=== PATIENT | female | born 1955 | race Caucasian/White ===

== ENCOUNTER 2024-06-12 14:55 | Inpatient (IN) | payer MEDICARE, SELFPAY ==
--- NOTE | ~2024-06-12 | XR_ITS ---
INTRAOPERATIVE FLUOROSCOPY: CLINICAL HISTORY: 68 years old Female; ORIF RIGHT ANKLE PROCEDURE COMMENTS: Limited intraoperative fluoroscopy of the right ankle was performed. CUMULATIVE DOSE: 2.9 mGy FLUOROSCOPY TIME: 61 seconds FINDINGS/IMPRESSION: Please refer to operative note for further details. Reviewed, dictated and finalized at location A. UCTION EXPERT
--- NOTE | ~2024-06-12 | XR_ITS ---
HISTORY: right ankle pain, fall COMPARISON: None TECHNIQUE: 3 views of the right ankle were performed FINDINGS: Hardware within the calcaneus and across the talocalcaneal joint space. Acute trimalleolar fracture is identified with medial more than lateral soft tissue swelling. IMPRESSION: Trimalleolar fracture within the right ankle, as detailed above. Reviewed, dictated and finalized at location A. ERY WORKER
--- OUTSIDE RECORDS SUMMARY | 2024-06-12 14:57 | XMS_ITS | Patient Health Summary ---
Author Organization [facility] Address [address] [place] [address] Care Team Providers Care Bacteriologist Pharmaceutical Name Role Phone Daniella Rodriguez MD Primary Care Provider [phone] Note from [facility],non-owned Affiliates and Associated Physician Practices is amultiple site organization consisting of ambulatory clinics and hospital sitesin [place], [place], [place] and [place]. This disclosure is being madepursuant to the Care Everywhere program and may not contain all information available regarding this patient. Last updated 18.[facility] Allergies * Aspirin(Unknown) * Penicillins(Unknown) Medications * Be aware that medications may not be up to date on this document. Alwaysverify current medications with the patient. * albuterol HFA (PROVENTIL;VENTOLIN;PROAIR) 108 (90 Base) MCG/ACT inhaler (Started 11/01/2020) Inhale 2 (two) puffs by mouth every 4 hours as needed for Shortness of Breath or Wheezing * acetaminophen (TYLENOL) 500 MG tablet Take 1,000 mg by mouth every 6 hours as needed for Fever or Pain Maximum allowable Acetaminophen amount = 4 Grams (4000 mg) / 24 hours. * multivitamin daily tablet Take 1 tablet by mouth daily with food * guaiFENesin-dextromethorphan (ROBITUSSIN DM) 100-10 MG/5ML syrup(Started 11/11/2020) Take 10 mL by mouth every 8 hours as needed for Cough * AeroChamber Plus (AEROCHAMBER)(Started 11/11/2020) Inhale by mouth as directed * predniSONE (DELTASONE) 10 MG tablet(Started 11/11/2020) Take 4 tablets daily for 4 days, take 3 tablets daily for 2 days, take 2 tablets daily for 2 days, then take 1 tablet daily for 2 days Active Problems Problem Noted Date Diagnosed Date Acute respiratory failure with hypoxia COVID-19 virus infection 11/08/2020 Cholecystitis 12/22/2018 Social History Tobacco Use Types Packs/Day Years Used Date Smoking Tobacco: Former Cigarettes 0.5 5.7 0 04/23/1968 - 12/22/1973 Smokeless Tobacco: Never Tobacco Cessation:Counseling Given: Yes Alcohol Use Standard Drinks/Week Comments Never 0 (1 standard drink = 0.6 oz pur e alcohol) AUDIT-C Answer Date Recorded Frequency of Alcohol Consumption Never 12/22/2018 Average Number of Drinks Not on file 019 Frequency of Binge Drinking Not on file 07/2018 Sex and Gender Information Value Date Recorded Sex Assigned at Not on file Gender Identity Not on file Sexual Orientation Not on file Last Filed Vital Signs Vital Sign Reading Time Taken Comments Blood Pressure 130/69 11/11/2020 8:53 AM CDT Pulse 80 11/11/2020 8:53 AM CDT Temperature 37.1 C (98.8 F) 11/11/2020 8:53 AM CDT Respiratory Rate 18 11/11/2020 8:07 AM CDT Oxygen Saturation 94% 11/11/2020 8:53 AM CDT Inhaled Oxygen Concentration - - Weight 76.5 kg (168 lb 10.4 oz) 11/09/2020 5:07 AM CDT Height 180.3 cm (5' 11 ) 11/08/2020 10: 08 PM CDT Body Mass Index 23.52 11/08/2020 10:08 PM CDT Procedures * CARDIAC RHYTHM STRIP ORDER(Performed 11/13/2020) * C-REACTIVE PROTEIN(Performed 11/10/2020) * FERRITIN(Performed 11/10/2020) * MAGNESIUM BLOOD(Performed 11/10/2020) * CBC W AUTO DIFFERENTIAL(Performed 11/10/2020) * BASIC METABOLIC PANEL (CALCIUM TOTAL)(Performed 11/10/2020) * SARS-COV-2 (COVID-19) ANTIBODY IGG(Performed 11/10/2020) * B-TYPE NATRIURETIC PEPTIDE(Performed 11/09/2020) * COMPREHENSIVE METABOLIC PANEL(Performed 11/09/2020) * C-REACTIVE PROTEIN(Performed 11/09/2020) * FERRITIN(Performed 11/09/2020) * CBC W AUTO DIFFERENTIAL(Performed 11/09/2020) * D-DIMER(Performed 11/08/2020) * C-REACTIVE PROTEIN(Performed 11/08/2020) * LDH BLOOD(Performed 11/08/2020) * FERRITIN(Performed 11/08/2020) * CULTURE BLOOD(Performed 11/08/2020) * CULTURE BLOOD(Performed 11/08/2020) * MAGNESIUM BLOOD(Performed 11/08/2020) * TROPONIN I(Performed 11/08/2020) * PROCALCITONIN LEVEL(Performed 11/08/2020) * LACTIC ACID BLOOD REFLEX TO REPEAT(Performed 11/08/2020) * COMPREHENSIVE METABOLIC PANEL(Performed 11/08/2020) * CBC W AUTO DIFFERENTIAL(Performed 11/08/2020) * XR CHEST 1VW PORTABLE(Performed 11/08/2020) Performed for COVID-19 virus infection * EKG 12-LEAD(Performed 11/08/2020) Performed for COVID-19 virus infection * XR CHEST 1VW PORTABLE(Performed 11/01/2020) Performed for Cough * SARS-COV-2 (COVID-19) RAPID(Performed 11/01/2020) * COMPREHENSIVE METABOLIC PANEL(Performed 11/01/2020) * CBC W AUTO DIFFERENTIAL(Performed 11/01/2020) * LACTIC ACID BLOOD REFLEX TO REPEAT(Performed 11/01/2020) * CULTURE BLOOD(Performed 11/01/2020) * CULTURE BLOOD(Performed 11/01/2020) * VAS RIGHT VENOUS DUPLEX LE(Performed 08/24/2019) Performed for Pain in right leg * XR KNEE RIGHT 3VW(Performed 08/24/2019) Performed for Right knee pain, unspecified chronicity * IMAGING/RADIOLOGY/XRAY RESULTS ORDER(Performed 01/12/2019) * CARDIAC RHYTHM STRIP ORDER(Performed 12/24/2018) * HEPATIC FUNCTION PANEL(Performed 12/23/2018) * CBC W AUTO DIFFERENTIAL(Performed 12/23/2018) * GROSS + MICRO EXAM (ILL)(Performed 12/23/2018) Performed for Cholecystitis * NH LAP,CHOLECYSTECTOMY/GRAPH(Performed 12/23/2018) * NM HEPATOBILIARY WO EF(Performed 12/22/2018) Performed for Cholecystitis * LIPASE BLOOD(Performed 12/22/2018) Performed for Cholecystitis * US ABDOMEN LIMITED(Performed 12/22/2018) Performed for Cholecystitis * MAGNESIUM BLOOD(Performed 12/22/2018) * LACTIC ACID BLOOD(Performed 12/22/2018) * CBC W/O DIFFERENTIAL(Performed 12/22/2018) * BASIC METABOLIC PANEL (CALCIUM TOTAL)(Performed 12/22/2018) * XR WRIST RIGHT 3VW OR MORE(Performed 11/19/2016) Performed for Contusion of right hand, initial encounter * XR HAND RIGHT 3VW OR MORE(Performed 11/19/2016) Performed for Contusion of right hand, initial encounter Results * CARDIAC RHYTHM STRIP ORDER (11/13/2020 7:48 AM CDT) Only the most recent of2 resultswithin the time period is included. Narrative 11/13/2020 7:48 AM CDT Ordered by an unspecified provider. Scanned Document CARDIAC SERVICES ORD ERABLES * SARS-COV-2 (COVID-19) ANTIBODY IGG (11/10/2020 7:19 AM CDT) CoV2 IGG Negative Negative 11/10/2020 11:01 AM CDT [facility] Blood BLOOD SPECIMEN / Unknown Lab Venipuncture / Unknown 11/10/2020 7:19 AM CDT 11/10/2020 7:46 AM CDT Narrative [facility] - 11/10/2020 11:01 AM CDT This serologic based test was developed by [employer] and its performance characteristics determined by [facility] multisite validation and [facility]. This test has not been fully reviewed by the FDA but is being allowed for use per the FDA's Emergency Use Authorization. Please note the following disclaimers: Negative results do not rule out SARS-CoV-2 infection, particulary in those who have been in contact with the virus. Follow up testing with a molecular diagnostic should be considered to rule out infection in these individuals. Results from antibody testing should not be used as the sole basis to diagnose or exclude SARS-CoV-2 infection or to inform infection status. False positive results may be due to past or present infection with [id number] coronavirus strains. Rigorous scientific studies have not been completed to determine if detectable IgG to SARS-CoV-2 confers protective immunity. Luke Hernandez MD LAB - CHEMISTRY [facility] Performing Organization Address [facility] Co de Phone Number [facility] [address] * (ABNORMAL) C-REACTIVE PROTEIN (11/10/2020 7:19 AM CDT) Only the most recent of3 resultswithin the time period is included. [facility] C-Reactive Protein 1.45(H) 0.00 - 0.50 mg/dL 11/10/2020 8:59 AM CDT [facility] Blood BLOOD SPECIMEN / Unknown Lab Venipuncture / Unknown 11/10/2020 7:19 AM CDT 11/10/2020 7:46 AM CDT Luke Hernandez MD LAB - CHEMISTRY [facility] Performing Organization Address [facility] de Phone Number [facility] [address] * (ABNORMAL) CBC W AUTO DIFFERENTIAL (11/10/2020 7:19 AM CDT) Only the most recent of5 resultswithin the time period is included. [facility] WBC 9.2 4.0 - 10.0 x10E9/L 11/10/2020 7:50 AM CDT [facility] RBC 4.45 3.93 - 5.22 x10E12/L 11/10/2020 7:50 AM CDT [facility] Hemoglobin 14.1 11.2 - 15.7 gm/dL 11/10/2020 7:50 AM CDT [facility] Hematocrit 41.7 34.1 - 44.9 % 11/10/2020 7:50 AM CDT [facility] MCV 93.7 78.0 - 100.0 fl 11/10/2020 7:50 AM CDT [facility] MCH 31.7 25.6 - 34.0 pg 11/10/2020 7:50 AM CDT [facility] MCHC 33.8 32.3 - 36.5 gm/dL 11/10/2020 7:50 AM CDT [facility] RDW 13.6 11.6 - 14.4 % 11/10/2020 7:50 AM CDT [facility] MPV 10.0 9.4 - 12.4 fl 11/10/2020 7:50 AM CDT [facility] Platelet Count 146(L) 163 - 369 x10E9/L 11/10/2020 7:50 AM CDT [facility] Neutrophils % 65.4 40.0 - 75.0 % 11/10/2020 7:50 AM CDT [facility] Lymphocytes % 27.6 19.3 - 53.1 % 11/10/2020 7:50 AM CDT [facility] Monocytes % 6.7 4.7 - 12.5 % 11/10/2020 7:50 AM CDT [facility] Eosinophils % 0.0(L) 0.7 - 7.0 % 11/10/2020 7:50 AM CDT [facility] Basophils % 0.1 0.1 - 1.2 % 11/10/2020 7:50 AM CDT [facility] Immature Granulocytes 0.2 0 - 0.5 % 11/10/2020 7:50 AM CDT [facility] Neutrophil Absolute 6.01 1.56 - 6.13 x10E9/L 11/10/2020 7:50 AM CDT [facility] Lymphocytes Absolute 2.54 1.18 - 3.74 x10E9/L 11/10/2020 7:50 AM CDT [facility] Monocytes Absolute 0.62 0.24 - 0.86 x10E9/L 11/10/2020 7:50 AM CDT [facility] Eosinophils Absolute 0.00(L) 0.04 - 0.54 x10E9/L 11/10/2020 7:50 AM CDT [facility] Basophils Absolute 0.01 0.01 - 0.08 x10E9/L 11/10/2020 7:50 AM CDT [facility] Immature Granulocytes Absolute 0.02 0 - 0.03 x10E9/L 11/10/2020 7:50 AM CDT [facility] nRBC Auto 0 <=0 /100 WBC 11/10/2020 7:50 AM CDT [facility] nRBC Absolute 0.00 <=0 x10E9/L 11/10/2020 7:50 AM CDT [facility] Blood BLOOD SPECIMEN / Unknown Lab Venipuncture / Unknown 11/10/2020 7:19 AM CDT 11/10/2020 7:45 AM CDT Luke Hernandez MD LAB - HEMATOLOGY ORD ERABLES [facility] [address] [place], [place] [address] [place] [address] * BASIC METABOLIC PANEL (CALCIUM TOTAL) (11/10/2020 7:19 AM CDT) Only the most recent of2 resultswithin the time period is included. Glucose 108 70 - 125 mg/dL 11/10/2020 8:59 AM CDT [facility] Sodium 140 136 - 145 mmol/L 11/10/2020 8:59 AM CDT [facility] Potassium 3.7 3.4 - 4.5 mmol/L 11/10/2020 8:59 AM CDT [facility] Chloride 107 98 - 107 mmol/L 11/10/2020 8:59 AM CDT [facility] CO2 23 22 - 29 mmol/L 11/10/2020 8:59 AM CDT [facility] Calcium 9.24 8.4 - 10.2 mg/dL 11/10/2020 8:59 AM CDT [facility] Anion Gap 14 10 - 20 mmol/L 11/10/2020 8:59 AM CDT [facility] BUN 16.6 9.8 - 20.1 mg/dL 11/10/2020 8:59 AM CDT [facility] Creatinine 0.81 0.57 - 1.11 mg/dL 11/10/2020 8:59 AM CDT [facility] eGFR by MDRD >60 >60 mL/min/1.7 3m2 11/10/2020 8:59 AM CDT [facility] eGFR by MDRD >60 >60 mL/min/1.7 3m2 11/10/2020 8:59 AM CDT [facility] Blood BLOOD SPECIMEN / Unknown Lab Venipuncture / Unknown 11/10/2020 7:19 AM CDT 11/10/2020 7:46 AM CDT Luke Hernandez MD LAB - CHEMISTRY [facility] Performing Organization Address City/[facility] Co de Phone Number [facility] [address] * MAGNESIUM BLOOD (11/10/2020 7:19 AM CDT) Only the most recent of3 resultswithin the time period is included. Magnesium 1.8 1.6 - 2.6 mg/dL 11/10/2020 8:34 AM CDT [facility] Blood BLOOD SPECIMEN / Unknown Lab Venipuncture / Unknown 11/10/2020 7:19 AM CDT 11/10/2020 7:46 AM CDT Luke Hernandez MD LAB - CHEMISTRY [facility]VAR[facility]O Performing Organization Address [facility] de Phone Number [facility] [address] * (ABNORMAL) FERRITIN (11/10/2020 7:19 AM CDT) Only the most recent of3 resultswithin the time period is included. Ferritin 1,027(H) 5 - 204 ng/mL 11/10/2020 8:59 AM CDT [facility] Blood BLOOD SPECIMEN / Unknown Lab Venipuncture / Unknown 11/10/2020 7:19 AM CDT 11/10/2020 7:46 AM CDT Luke Hernandez MD LAB - CHEMISTRY [facility]VAR[facility] Performing Organization Address [facility] Co de Phone Number [facility] [address] * B-TYPE NATRIURETIC PEPTIDE (11/09/2020 7:24 AM CDT) BNP 14 10 - 100 pg/mL 11/09/2020 8:28 AM CDT [facility] Blood BLOOD SPECIMEN / Unknown Lab Venipuncture / Unknown 11/09/2020 7:24 AM CDT 11/09/2020 7:57 AM CDT Luke Hernandez MD LAB - CHEMISTRY [facility] [place] Organization Address City/State/ZIP Co de Phone Number [facility] [address] [place] [address], [facility] * (ABNORMAL) COMPREHENSIVE METABOLIC PANEL (11/09/2020 7:24 AM CDT) Only the most recent of3 resultswithin the time period is included. [facility] Glucose 110 70 - 125 mg/dL 11/09/2020 8:35 AM CDT [facility] Sodium 141 136 - 145 mmol/L 11/09/2020 8:35 AM CDT [facility] Potassium 3.9 3.4 - 4.5 mmol/L 11/09/2020 8:35 AM CDT [facility] Chloride 107 98 - 107 mmol/L 11/09/2020 8:35 AM CDT [facility] CO2 24 22 - 29 mmol/L 11/09/2020 8:35 AM CDT [facility] Calcium 9.25 8.4 - 10.2 mg/dL 11/09/2020 8:35 AM CDT [facility] Anion Gap 14 10 - 20 mmol/L 11/09/2020 8:35 AM CDT [facility] BUN 16.7 9.8 - 20.1 mg/dL 11/09/2020 8:35 AM CDT [facility] Creatinine 0.82 0.57 - 1.11 mg/dL 11/09/2020 8:35 AM CDT [facility] eGFR by MDRD >60 >60 mL/min/1.7 3m2 11/09/2020 8:35 AM CDT [facility] eGFR by MDRD >60 >60 mL/min/1.7 3m2 11/09/2020 8:35 AM CDT [facility] Alkaline Phosphatase 71 40 - 150 U/L 11/09/2020 8:35 AM CDT [facility] ALT 21 5 - 55 U/L 11/09/2020 8:35 AM CDT [facility] AST 25 5 - 34 U/L 11/09/2020 8:35 AM CDT [facility] Protein Total 6.7 6.4 - 8.3 gm/dL 11/09/2020 8:35 AM CDT [facility] Albumin 3.1(L) 3.5 - 5.0 gm/dL 11/09/2020 8:35 AM CDT [facility] Globulin Total 3.6 2.6 - 4.0 gm/dL 11/09/2020 8:35 AM CDT [facility] Albumin/Globulin Ratio 0.9 0.9 - 1.6 11/09/2020 8:35 AM CDT [facility] Bilirubin Total 0.7 0.2 - 1.2 mg/dL 11/09/2020 8:35 AM CDT [facility] Blood BLOOD SPECIMEN / Unknown Lab Venipuncture / Unknown 11/09/2020 7:24 AM CDT 11/09/2020 7:57 AM CDT Luke Hernandez MD LAB - CHEMISTRY [facility] Organization Address City/State/[facility] Co de Phone Number [facility] [address] * (ABNORMAL) D-DIMER (11/08/2020 5:26 PM CDT) [facility] D-Dimer 0.54(H) <0.50 ug/mL FEU 11/08/2020 5:46 PM CDT [facility] Blood BLOOD SPECIMEN / Unknown Venipuncture / Unknown 11/08/2020 5:26 PM CDT 11/08/2020 5:31 PM CDT Narrative [facility] - 11/08/2020 5:46 PM CDT Intended for use in conjunction with a clinical pretest probability (PTP) assessment model to exclude pulmonary embolism (PE) and deep venous thrombosis (DVT) in outpatients suspected of PE or DVT when the D-dimer level is inferior to a predefined cut-off. A D-dimer test should be used in conjunction with a well validated clinical score to safely exclude VTE in outpatients with a low or moderate clinical score. Patients with distal DVT may have a normal D-dimer level. In DIC the D-dimer level increases, therefore D-dimer assays can help in the diagnosis of DIC and in DIC patient management. Theodore Lozano MD LAB - COAGULATION OR DERABLES Performing Organization Address [facility]/ZIP Co de Phone Number [facility] [address] * (ABNORMAL) LDH BLOOD (11/08/2020 5:26 PM CDT) LDH 236(H) 125 - 220 U/L 11/08/2020 6:14 PM CDT [facility] Blood BLOOD SPECIMEN / Unknown Venipuncture / Unknown 11/08/2020 5:26 PM CDT 11/08/2020 5:31 PM CDT Theodore Lozano MD LAB - CHEMISTRY [facility] ALVARADO Performing Organization Address [facility] Co de Phone Number [facility] [address] * CULTURE BLOOD (11/08/2020 5:24 PM CDT) Only the most recent of4 resultswithin the time period is included. Pathologist [facility] Culture No growth day 5 LAUREN 11/14/2020 9:56 AM CDT [facility] Blood PERIPHERAL BLOOD / Unknown Venipuncture / Unknown 11/08/2020 5:24 PM CDT 11/08/2020 5:31 PM CDT Theodore Lozano MD LAB - MICROBIOLOGY O RDERABLES Performing Organization Address [facility] Co de Phone Number [facility] [address] * LACTIC ACID BLOOD REFLEX TO REPEAT (11/08/2020 5:22 PM CDT) Only the most recent of2 resultswithin the time period is included. Lactic Acid 1.66 0.5 - 2 mmol/L 11/08/2020 5:51 PM CDT [facility] Blood BLOOD SPECIMEN / Unknown Venipuncture / Unknown 11/08/2020 5:22 PM CDT 11/08/2020 5:31 PM CDT Theodore Lozano MD LAB - CHEMISTRY [facility] ALVARADO [facility] [address] [place] [address], [facility] * PROCALCITONIN LEVEL (11/08/2020 5:22 PM CDT) Procalcitonin 0.05 <=0.10 ng/mL 11/08/2020 6:17 PM CDT [facility] Blood BLOOD SPECIMEN / Unknown Venipuncture / Unknown 11/08/2020 5:22 PM CDT 11/08/2020 5:32 PM CDT Narrative [facility] - 11/08/2020 6:17 PM CDT If baseline PCT is - >2.0 ng/mL: A PCT level above 2.0 ng/mL on the first day of ICU admission is associated with a high risk for progression to severe sepsis and/or septic shock. - <0.5 ng/mL: A PCT level below 0.5 ng/mL on the first day of ICU admission is associated with a low risk for progression to severe sepsis and/or septic shock. If the Procalcitonin measurement is performed shortly after systemic infection process has started (usually less than 6 hours), these values may still be low. As various non-infectious conditions are known to induce procalcitonin as well, Procalcitonin levels between 0.50 ng/mL and 2.00 ng/mL should be reviewed carefully to take into account the specific clinical background and condition(s) of the individual patient. The change in procalcitonin (PCT) concentration over time provides support in decision making on antibiotic discontinuation for suspected or confirmed septic patients and for suspected or confirmed lower respiratory tract infection (LRTI). Follow-up samples should be tested once every 1-2 days based upon physician discretion taking into account the patient's evolution and progress. Discontinuation of antibiotic therapy may be considered for suspected or confirmed septic patients if the current PCT is <= 0.5 ng/mL or <= 0.25 ng/mL for confirmed LRTI. If the PCT delta drop is > 80% in either condition, discontinuation of antibiotic therapy may be indicated. Duration of antibiotics should not be determined solely on PCT; established guidelines for the indication should be followed. Results should be interpreted in the context of a patient's clinical status and other laboratory tests. PCT peak: Highest observed PCT concentration PCT current: Most recent PCT concentration Calculate delta PCT using the following equation: Delta PCT = PCT Peak - PCT current X 100% PCT Peak The Change in Procalcitonin Calculator is available at [email or web address] If clinical picture has not improved and PCT remains high, reevaluate and consider treatment failure or other causes. Theodore Lozano MD LAB - CHEMISTRY [facility]VARADO Performing Organization Address [facility] Co de Phone Number [facility] [address] * TROPONIN I (11/08/2020 5:22 PM CDT) [facility] Troponin I 0.020 <0.032 ng/mL 11/08/2020 6:03 PM CDT [facility] Blood BLOOD SPECIMEN / Unknown Venipuncture / Unknown 11/08/2020 5:22 PM CDT 11/08/2020 5:32 PM CDT Narrative [facility] - 11/08/2020 6:03 PM CDT The universal definition of myocardial infarction (WY) being at least one value above the 99th percentile of the upper reference limit (0.028 ng/mL combined male/female), along with evidence of WY with at least one of the following: Ischemic symptoms, pathological Q waves on electrocardiogram (ECG), ischemic ECG changes or imaging evidence of new loss of viable myocardium or new regional wall motion abnormality. An elevated TNI value alone is not sufficient to make a the diagnosis of W[place], serial sampling is recommended to detect the temporal rise and fall of troponin levels characteristic of W[place]. Any condition resulting in myocardial cell damage can increase cardiac TNI levels. In addition to WY, these include but are not limited to congestive heart failure, arrhythmia, myocarditis and non-cardiac related causes such as pulmonary embolism, renal failure and sepsis. Theodore Lozano MD LAB - CHEMISTRY [facility] ALVARADO Performing Organization Address [facility] Co de Phone Number [facility] [address] * XR CHEST 1VW PORTABLE (11/08/2020 5:21 PM CDT) Only the most recent of2 resultswithin the time period is included. Anatomical Region Laterality Modality Chest Radiographic Silvia ging 11/08/2020 6:10 PM CDT Impressions 11/08/2020 6:11 PM CDT 1. No acute process in the chest. 2. Appearance is similar in comparison to prior chest x-ray of 11/01/2020. *Reading Radiologist: Miguel Mckinonn on 11/08/2020 at 6:11 PM Narrative 11/08/2020 6:11 PM CDT RADIOGRAPH OF THE CHEST CLINICAL HISTORY: COVID-19. TECHNIQUE: Frontal view of the chest. COMPARISON: Chest x-ray of 11/01/2020. FINDINGS: Normal sized heart. No consolidation. No effusion. Negative for pneumothorax. Negative for acute osseous abnormality, lytic or blastic lesion. Procedure Note Miguel Mckinnon MD - 11/08/2020 RADIOGRAPH OF THE CHEST CLINICAL HISTORY: COVID-19. TECHNIQUE: Frontal view of the chest. COMPARISON: Chest x-ray of 11/01/2020. FINDINGS: Normal sized heart. No consolidation. No effusion. Negative for pneumothorax. Negative for acute osseous abnormality, lytic or blastic lesion. IMPRESSION 1. No acute process in the chest. 2. Appearance is similar in comparison to prior chest x-ray of 11/01/2020. *Reading Radiologist: Miguel Mckinnon on 11/08/2020 at 6:11 PM Theodore Lozano MD DIAGNOSTIC IMAGING O RDERABLES * (ABNORMAL) EKG 12-LEAD (11/08/2020 5:08 PM CDT) Ventricular Rate 88 BPM [facility] Atrial Rate 88 BPM [facility] P-R Interval 146 ms [facility] QRS Duration ms 90 ms [facility] Q-T Interval ms 362 ms [facility] QTC Calculation (Bezet) 438 ms [facility] Calculated P [place] 21 degrees [facility] Calculated R [place] -22 degrees [facility] Calculated T [place] 117 degrees [facility] Interpretation EKG Normal sinus rhythm Left ventricular hypertrophy with repolarization abnormality Abnormal ECG No previous ECGs available Confirmed by MD P[facility] ([id number]) on 11/10/2020 1:51:59 PM [facility] 11/08/2020 5:08 PM CDT 11/10/2020 1:51 PM CDT Narrative Procedure Note Theodore Lozano MD - 11/08/2020 4:49 PM CDT ED Events Date/Time Event User Comments 11/08/20 1648 First Provider Evaluation IGNACIO KUMAR Karis Granda [id number] [facility] EM[facility]ENC[facility]PART[facility] History Chief Complaint Patient presents with Cough Pain Head Epidemic Concern 4:49 PM Karis Granda, a 65 year old female with a past medical historythat includes--Cholecystectomy--presents to the ER c/o headache,rhinorrhea, malaise, and cough onset 8 days ago. She was seen in the ED 7days ago and was positive for COVID-19 at that time. She was dischargedhome and says that her symptoms were mild initially. The pt says that shebegan to experience diarrhea 2 days ago and yesterday she began toexperience a fever, increased cough, and an increased headache. She has apulse oximeter at home and says that at one point her last PM her FhM1qtqktodlw to 88%. Today her SpO2 has been in the low 90's and she has beenexperiencing SOB and vomiting x1. The pt also says that she has painacross her lower chest when she breathes in or coughs. She denies loss oftaste or smell, current nausea, abdominal pain, or a sore throat. The pthad an SpO2 in the low 90's by EMS and was placed on 4 LPM O2. The pt nowhas an SpO2=97% and says that she feels better. She denies a history ofsmoking, asthma, or using inhalers. No other complaint voiced at thistime. PCP: Daniella Rodriguez MD Past Medical History: Diagnosis Date NEGATIVE PAST MEDICAL HISTORY - SEE PROBLEM LIST Past Surgical History: Procedure Laterality Date Cholecystectomy, Laparoscopic 12/23/2018 LAPAROSCOPIC CHOLECYSTECTOMY No family history on file. Social History Socioeconomic History Marital status: Spouse name: Not on file Number of children: Not on file Years of education: Not on file Highest education level: Not on file Occupational History Not on file Tobacco Use Smoking status: Former Smoker Packs/day: 0.50 Years: 5.00 Pack years: 2.50 Types: Cigarettes Start date: 04/23/1968 Quit date: 12/22/1973 Years since quittin.9 Smokeless tobacco: Never Used Substance and Sexual Activity Alcohol use: Never Drug use: Never Sexual activity: Not Currently Other Topics Concern Not on file Social History Narrative Not on file Social Determinants of Health Financial Resource Strain: Difficulty of Paying Living Expenses: Food Insecurity: Worried About Running Out of Food in the Last Year: Ran Out of Food in the Last Year: Transportation Needs: Lack of Transportation (Medical): Lack of Transportation (Non-Medical): Physical Activity: Days of Exercise per Week: Minutes of Exercise per Session: Stress: Feeling of Stress : Social Connections: Frequency of Communication with Friends and Family: Frequency of Social Gatherings with Friends and Family: Attends [employer] Services: Active Member of Clubs or Organizations: Attends Club or Organization Meetings: Marital Status: Intimate Partner Violence: Fear of Current or Ex-Partner: Emotionally Abused: Physically Abused: Sexually Abused: Review of Systems Review of Systems Constitutional: Positive for fever and malaise/fatigue. No loss of taste or smell. HENT: Negative for sore throat. Rhinorrhea. Eyes: Negative. Respiratory: Positive for cough and shortness of breath. Cardiovascular: Positive for chest pain (across lower chest withinspiration or coughing). Gastrointestinal: Positive for diarrhea and vomiting. Negative forabdominal pain and nausea. Genitourinary: Negative. Musculoskeletal: Negative. Skin: Negative for rash. Neurological: Positive for headaches. All other systems reviewed and are negative. Physical Exam BP 129/70 Pulse 88 Temp 98.2 F (36.8 C) Resp 18 SpO2 96% Vitals: 11/08/20 1642 BP: 129/70 Pulse: 88 Resp: 18 Temp: 98.2 F (36.8 C) SpO2: 96% Physical Exam Vitals and nursing note reviewed. Constitutional: Appearance: She is well-developed. HENT: Head: Atraumatic. Nose: Nose normal. Eyes: General: No scleral icterus. Conjunctiva/sclera: Conjunctivae normal. Pupils: Pupils are equal, round, and reactive to light. Neck: Vascular: No JVD. Cardiovascular: Rate and Rhythm: Normal rate and regular rhythm. Heart sounds: Normal heart sounds. Pulmonary: Effort: Pulmonary effort is normal. Comments: Mild bibasilar crackles. Chest: Chest wall: No tenderness. Abdominal: Palpations: Abdomen is soft. Tenderness: There is abdominal tenderness (mild) in the epigastricarea. There is no guarding or rebound. Musculoskeletal: General: No tenderness. Normal range of motion. Cervical back: Normal range of motion. Lymphadenopathy: Cervical: No cervical adenopathy. Skin: General: Skin is warm and dry. Neurological: Mental Status: She is alert and oriented to person, place, and time. Cranial Nerves: No cranial nerve deficit. Motor: No abnormal muscle tone. Medications Current Outpatient Medications Medication Sig Dispense Refill acetaminophen CR (TYLENOL ARTHRITIS PAIN) 650 MG tablet Take 1 tablet bymouth every 8 hours as needed for Pain 25 tablet 1 albuterol HFA (PROVENTIL;VENTOLIN;PROAIR) 108 (90 Base) MCG/ACT inhalerInhale 2 (two) puffs by mouth every 4 hours as needed for Shortness ofBreath or Wheezing 1 Inhaler 0 azithromycin (ZITHROMAX) 250 MG tablet Take two tablets now then onetablet everyday for four days 6 tablet 0 HYDROcodone-acetaminophen (NORCO) 5-325 MG tablet Take 1 tablet by mouthevery 12 hours as needed (Patient not taking: Reported on 01/03/2019) 4tablet 0 methylPREDNISolone (MEDROL DOSEPAK) 4 MG tablet Take by mouth asdirected 1 Each 0 ondansetron (ZOFRAN) 4 MG tablet Take 1 tablet by mouth every 6 hours asneeded for Nausea/Vomiting 10 tablet 0 Procedures EKG 12-LEAD Date/Time: 11/08/2020 5:08 PM Performed by: Theodore Lozano MD Authorized by: Theodore Lozano MD ECG interpreted by ED Physician in the absence of a bleacher pulp: yes Interpretation: Interpretation: abnormal Rate: ECG rate: 88 ECG rate assessment: normal Rhythm: Rhythm: sinus rhythm Ectopy: Ectopy: none QRS: QRS axis: Normal Other findings: Other findings: LVH Lab Interpretation Oxygen Saturation Interpretation The oxygen saturation level is: 96%. The patient was on 4 lpm for thesaturation measurement. Measurement frequency: Continuous. Oxygensaturation interpretation is Normal. Intervention(s) used: OxygenAdministration. Hospital Encounter on 11/08/20 CBC W AUTO DIFFERENTIAL Result Value Ref Range WBC 7.0 4.0 - 10.0 x10E9/L RBC 4.66 3.93 - 5.22 x10E12/L Hemoglobin 15.0 11.2 - 15.7 gm/dL Hematocrit 43.7 34.1 - 44.9 % MCV 93.8 78.0 - 100.0 fl MCH 32.2 25.6 - 34.0 pg MCHC 34.3 32.3 - 36.5 gm/dL RDW 13.6 11.6 - 14.4 % MPV 9.9 9.4 - 12.4 fl Platelet Count 128 (L) 163 - 369 x10E9/L Neutrophils % 69.5 40.0 - 75.0 % Lymphocytes % 23.9 19.3 - 53.1 % Monocytes % 6.4 4.7 - 12.5 % Eosinophils % 0.0 (L) 0.7 - 7.0 % Basophils % 0.1 0.1 - 1.2 % Immature Granulocytes 0.1 0 - 0.5 % Neutrophil Absolute 4.89 1.56 - 6.13 x10E9/L Lymphocytes Absolute 1.68 1.18 - 3.74 x10E9/L Monocytes Absolute 0.45 0.24 - 0.86 x10E9/L Eosinophils Absolute 0.00 (L) 0.04 - 0.54 x10E9/L Basophils Absolute 0.01 0.01 - 0.08 x10E9/L Immature Granulocytes Absolute 0.01 0 - 0.03 x10E9/L nRBC Auto 0 <=0 /100 WBC nRBC Absolute 0.00 <=0 x10E9/L LACTIC ACID BLOOD REFLEX TO REPEAT Result Value Ref Range Lactic Acid 1.66 0.5 - 2 mmol/L D-DIMER Result Value Ref Range D-Dimer 0.54 (H) <0.50 ug/mL FEU XR CHEST 1VW PORTABLE (Results Pending) Progress Notes 1649 The pt was evaluated for headache, rhinorrhea, malaise, and coughonset 8 days ago. She was seen in the ED 7 days ago and was positive forCOVID-19 at that time. She was discharged home and says that her symptomswere mild initially. The pt says that she began to experience diarrhea 2days ago and yesterday she began to experience a fever, increased cough,and an increased headache. She has a pulse oximeter at home and says thatat one point her last PM her SpO2 decreased to 88%. Today her SpO2 hasbeen in the low 90's and she has been experiencing SOB and vomiting x1.The pt also says that she has pain across her lower chest when shebreathes in or coughs. She denies loss of taste or smell, current nausea,abdominal pain, or a sore throat. The pt had an SpO2 in the low 90's byEMS and was placed on 4 LPM O2. The pt now has an SpO2=97% and says thatshe feels better. She denies a history of smoking, asthma, or usinginhalers. She was informed of the plan to perform labs, Chest X-ray, andan EKG. She will receive a 6 mg Dexamethasone injection. 1747 A call out was placed to the [facility] and Dr. Moy was assignedas hospitalist. [address] Moy (hospitalist). He was informed of the pt'shistory, physical, vitals, and results. He agrees to admit the pt to hisservice. The pt was reassessed and informed of the plan for admission. 1801 The pt has a potassium=3. She will receive a 40 mEq potassiumchloride ER tablet. This patient was cared for during a Federal and State declared state ofEmergency secondary to COVID-19. I have reviewed the patient's medical history, problem list, homemedications, and allergies. ED Course Clinical Impressions as of Nov 09 1803 COVID-19 virus infection Acute respiratory failure with hypoxia Hypokalemia Medical Decision Making I have reviewed the: Previous Chart, Nursing Notes, Vitals. I have interpreted the following results: Labs, X-Ray, OxygenSaturation. I have discussed the case with Hospitalist (Dr. Moy). Orders Placed This Encounter CULTURE BLOOD XR CHEST 1VW PORTABLE CBC W AUTO DIFFERENTIAL COMPREHENSIVE METABOLIC PANEL LACTIC ACID BLOOD REFLEX TO REPEAT PROCALCITONIN LEVEL TROPONIN I TROPONIN I FERRITIN LDH BLOOD C-REACTIVE PROTEIN D-DIMER O2 SAT PARAMETERS EKG 12-LEAD AND Linked Order Group 0.9% NaCl injection 3 mL 0.9% NaCl injection 1-10 mL dexAMETHasone (Decadron) injection 6 mg dexAMETHasone (Decadron) injection 6 mg Clinical Impression: Final diagnoses: COVID-19 virus infection Acute respiratory failure with hypoxia Pending: Labs and Imaging By signing my name below, I, Ignacio Kumar, attest that this documentationhas been prepared under the direction and in the presence of MD Rigo. Electronically signed: Hellen García. 11/08/2020. 5:55 PM I, Dr. Lozano, personally performed the services described in thisdocumentation. All medical record entries made by the scribe were at mydirection and in my presence. I have reviewed the chart and agree that therecord reflects my personal performance and is accurate and complete.Theodore Lozano MD. 11/08/2020. 5:55 PM Theodore Lozano MD ECG ORDERABLES [facility] * (ABNORMAL) SARS-COV-2 (COVID-19) RAPID (11/01/2020 4:41 AM CDT) COVID-19 PCR Detected(A A) Not detected, Invalid 11/01/2020 5:30 AM CDT [facility] Microbiology SPECIMEN FROM NASOPHARYNGEAL STRUCTURE / Unknown Collection / Unknown 11/01/2020 4:41 AM CDT 11/01/2020 4:41 AM CDT Narrative [facility] - 11/01/2020 5:30 AM CDT The Cepheid Xpert Xpress SARS-COV-2 has been authorized by the Food and Drug administration (FDA) under an Emergency Use Authorization (EUA). This test has been validated in accordance with the FDA's guidance document Policy for Diagnostic Testing in Laboratories Certified to perform High Complexity Testing under CLIA prior to Emergency Use Authorization for Coronavirus Disease-2019 during the Public Health Emergency issued on June 18, 2019. FDA independent review of this validation is pending. This test is only authorized for the duration of time the declaration that circumstances exist justifying the authorization of emergency use of in vitro diagnostic tests for detection of SARS-COV-2 virus and/or diagnosis of COVID-19 infection under 564(b)(1)of the Act, 21 U.S.C. 360bbb-3 (b) (1), unless the authorization is terminated or revoked sooner. David Dai MD LAB - MICROBIOLOGY ORDERABLES Performing Organization Address City/State/[facility] Co de Phone Number [facility] [address] [place], [place] [address] * VAS VENOUS DOPPLER LE UNILAT RIGHT (DVT STUDY) [id number] (08/24/2019 1:15 PM CDT) Anatomical Region Laterality Modality Lower Extremity Ultrasound 08/24/2019 1:18 PM CDT Impressions 08/24/2019 1:18 PM CDT No evidence of deep venous thrombosis within the veins mentioned above. Narrative 08/24/2019 1:18 PM CDT IMAGING STUDIES: VAS RIGHT VENOUS DUPLEX LE DATE: 08/24/2019 1:15 PM COMPARISON STUDIES: No previous available CLINICAL HISTORY: Pain in right leg. . FINDINGS: Real-time ultrasound examination of the right lower extremity deep venous system was performed by the equip maint eng using B-mode/grayscale, Doppler spectral analysis and color Doppler flow. Images demonstrate normal flow within the common femoral, femoral, popliteal and posterior tibial veins at the level of the calf. There is collapse with compression and normal augmentation. Procedure Note Rodger Argueta MD - 08/24/2019 IMAGING STUDIES: VAS RIGHT VENOUS DUPLEX LE DATE: 08/24/2019 1:15 PM COMPARISON STUDIES: No previous available CLINICAL HISTORY: Pain in right leg. . FINDINGS: Real-time ultrasound examination of the right lower extremity deep venous system was performed by the equip maint eng using B-mode/grayscale, Doppler spectral analysis and color Doppler flow. Images demonstrate normal flow within the common femoral, femoral, popliteal and posterior tibial veins at the level of the calf. There is collapse with compression and normal augmentation. IMPRESSION No evidence of deep venous thrombosis within the veins mentioned above. Marvin Mckeon PURCHASING [employer] [facility]ER[facility] * XR KNEE 3 VW RIGHT [id number] (08/24/2019 11:47 AM CDT) Anatomical Region Laterality Modality Lower Extremity Radiographic Silvia ging 08/24/2019 12:0 6 PM CDT Narrative 08/24/2019 12:10 PM CDT IMAGING STUDIES: XR KNEE RIGHT 3VW DATE: 08/24/2019 11:47 AM CLINICAL HISTORY: Pain in right knee. No given history of trauma COMPARISON: No comparisons. CONCLUSION: 1.There is no evidence of acute fracture, dislocation or osseous erosion. 2.Mild tibial spine spurring. Mild decrease in medial joint space without osteophyte. 3.Mild patellofemoral osteophyte. Patella is intact. Very small suprapatellar joint effusion. 4.No soft tissue swelling or radiopaque foreign bodies. Mild adjacent vascular calcifications. Procedure Note Chaitanya Velez MD - 08/24/2019 IMAGING STUDIES: XR KNEE RIGHT 3VW DATE: 08/24/2019 11:47 AM CLINICAL HISTORY: Pain in right knee. No given history of trauma COMPARISON: No comparisons. CONCLUSION: 1.There is no evidence of acute fracture, dislocation or osseous erosion. 2.Mild tibial spine spurring. Mild decrease in medial joint space without osteophyte. 3.Mild patellofemoral osteophyte. Patella is intact. Very small suprapatellar joint effusion. 4.No soft tissue swelling or radiopaque foreign bodies. Mild adjacent vascular calcifications. Marvin Mckeon PURCHASING EXP[employer] [facility] IMAG ING ORDERABLES * IMAGING/RADIOLOGY/XRAY RESULTS ORDER (01/12/2019 2:36 PM CDT) Anatomical Region Laterality Modality Other Narrative 01/12/2019 2:36 PM CDT Ordered by an unspecified provider. Scanned Document IMAGING * (ABNORMAL) HEPATIC FUNCTION PANEL (12/23/2018 9:17 AM CDT) Alkaline Phosphatase 79 40 - 150 U/L 12/23/2018 10:15 AM CDT [facility] ALT 18 5 - 55 U/L 12/23/2018 10:15 AM CDT [facility] AST 28 5 - 34 U/L 12/23/2018 10:15 AM CDT [facility] Protein Total 6.6 6.4 - 8.3 gm/dL 12/23/2018 10:15 AM CDT [facility] Albumin 3.3(L) 3.5 - 5.0 gm/dL 12/23/2018 10:15 AM CDT [facility] Bilirubin Total 0.6 0.2 - 1.2 mg/dL 12/23/2018 10:15 AM CDT [facility] Bilirubin Direct 0.28 0 - 0.5 mg/dL 12/23/2018 10:15 AM CDT [facility] Albumin/Globulin Ratio 1.0 0.9 - 1.6 12/23/2018 10:15 AM CDT [facility] Globulin Total 3.3 2.6 - 4.0 gm/dL 12/23/2018 10:15 AM CDT [facility] Bilirubin Indirect 0.3 0.2 - 0.9 mg/dL 12/23/2018 10:15 AM CDT [facility] Blood BLOOD SPECIMEN / Unknown Lab Venipuncture / Unknown 12/23/2018 9:17 AM CDT 12/23/2018 9:40 AM CDT Vanessa Jackman MD LAB - CHEMISTRY KHOA ALVARADO [facility] Organization Address City/State/ZIP Co de Phone Number [facility] [address] * GROSS + MICRO EXAM (ILL) (12/23/2018 8:09 AM CDT) Case Report Surgical Pathology Report Case: [id number] Authorizing Provider: Vanessa Jackman MD Collected: 12/23/2018 08:09 AM Ordering Location: [facility] Received: 12/23/2018 09:43 AM Pathologist: Luke Juan MD Specimen: Gallbladder 12/30/2018 1:32 PM CDT [facility] Final Diagnosis GALLBLADDER, CHOLECYSTECTOMY: - CHRONIC CHOLECYSTITIS AND CHOLELITHIASIS. TR/ns 12/30/2018 1:32 PM CDT [facility] Microscopic Description and Comment Microscopic examination is performed and substantiates the above diagnosis. 12/30/2018 1:32 PM CDT [facility] Clinical History Is not provided 12/30/2018 1:32 PM CDT [facility] Gross Description Received in formalin labeled, Karis Granda, and gallbladder, is an open, pink-bojorquez gallbladder measuring 8.5 x 3.9 x 1.3 cm with a wall thickness up to 0.4 cm. There are a few green to black stones in the container ranging from 0.1 - 0.4 cm in greatest dimension. The duct is patent. The mucosal surface is velvety and ranges from light to dark pink. There is no trabeculation identified. No masses or lesions are present. Felt Finishing Supervisor sections of this gallbladder are submitted in A1. LS/na 12/30/2018 1:32 PM CDT [facility] Disclaimer The performance characteristics of all immunohistochemical and indirect immunofluorescence stains (if any) cited in this report were determined by the Histopathology Laboratory of [facility]. Some of these tests were developed by our own laboratory and have not been cleared or approved by the US Food and Drug Administration. The FDA does not require this test to go through premarket FDA review. These tests are used for clinical purposes. They should not be regarded as investigational or for research. This laboratory is certified under the Clinical Laboratory Improvement Amendments (CLIA) as qualified to perform high complexity clinical laboratory testing. This case was interpreted by the [facility] Department of Pathology. When applicable, select reference laboratory testing is performed at the [facility], [address] [place] [address]. 12/30/2018 1:32 PM CDT AM LABORATORY Embedded Images 12/30/2018 1:32 PM CDT [facility] Pathology/Cytolo gy ENTIRE GALLBLADDER / Unknown 12/23/2018 8:09 AM CDT 12/23/2018 9:43 AM CDT Vanessa Jackman MD LAB - PATHOLOGY/CYTO LOGY ORDERABLES [facility] [address] [place] [address], [facility] * NM HEPATOBILIARY FUNCTION SCAN [id number] (12/22/2018 3:51 PM CDT) Anatomical Region Laterality Modality Abdomen Nuclear Medicine 12/22/2018 5:07 PM CDT Impressions 12/22/2018 5:24 PM CDT Very faint visualization of gallbladder which was not achieved until 4 hours post injection of radionuclide consistent with chronic cholecystitis with clinical correlation suggested. Hepatobiliary scan otherwise unremarkable. Narrative 12/22/2018 5:24 PM CDT RADIONUCLIDE HEPATOBILIARY SCAN: 12/22/2018 HISTORY: Cholecystitis. FINDINGS: Gamma camera imaging of right upper quadrant performed out to 4 hours post injection of 4.2 mCi of Tc 99m mebrofenin. Normal visualization of hepatic parenchymal, biliary ductal, and intestinal activity achieved. However, the gallbladder was not visualized on imaging up to 2 hours. At 4 hours, there is very faint visualization of gallbladder consistent with chronic cholecystitis. Procedure Note Cesario Edmondson MD - 12/22/2018 RADIONUCLIDE HEPATOBILIARY SCAN: 12/22/2018 HISTORY: Cholecystitis. FINDINGS: Gamma camera imaging of right upper quadrant performed out to 4 hours post injection of 4.2 mCi of Tc 99m mebrofenin. Normal visualization of hepatic parenchymal, biliary ductal, and intestinal activity achieved. However, the gallbladder was not visualized on imaging up to 2 hours. At 4 hours, there is very faint visualization of gallbladder consistent with chronic cholecystitis. IMPRESSION Very faint visualization of gallbladder which was not achieved until 4 hours post injection of radionuclide consistent with chronic cholecystitis with clinical correlation suggested. Hepatobiliary scan otherwise unremarkable. Dell Rivers MD [place] ORDERABLES * LIPASE BLOOD (12/22/2018 10:38 AM CDT) Lipase 31 8 - 78 U/L 12/22/2018 11:18 AM CDT [facility] Blood BLOOD SPECIMEN / Unknown Lab Venipuncture / Unknown 12/22/2018 10:38 AM CDT 12/22/2018 10:51 AM CDT Vanessa Jackman MD LAB - CHEMISTRY KHOA ALVARADO [facility] [address] [place] [address], [facility] * US ABDOMEN LIMITED [id number] (12/22/2018 10:19 AM CDT) Anatomical Region Laterality Modality Abdomen Ultrasound 12/22/2018 10:3 3 AM CDT Impressions 12/22/2018 10:35 AM CDT COMPARISON: No comparison. FINDINGS: Heterogeneous hepatic echotexture compatible with fatty liver. Mild intrahepatic ductal dilatation. Cholelithiasis. Pericholecystic fluid. Thickened gallbladder wall of 7.3 mm. Correlate clinically with possibility of acute cholecystitis. HIDA scan with CCK is recommended if warranted. Common bile duct measures 6.5 mm in AP diameter. Pancreas and right kidney are normal. Right kidney measures 13.5 x 6 x 6cm in size. Hepatopetal blood flow is noted in portal vein. IMPRESSION: ? Acute cholecystitis. Correlate clinically. Fatty liver. Narrative 12/22/2018 10:35 AM CDT PROCEDURE: US ABDOMEN LIMITED 12/22/2018 10:33 AM HISTORY: Cholecystitis, unspecified. FINDINGS AND Procedure Note Junior Cody MD - 12/22/2018 PROCEDURE: US ABDOMEN LIMITED 12/22/2018 10:33 AM HISTORY: Cholecystitis, unspecified. FINDINGS AND IMPRESSION COMPARISON: No comparison. FINDINGS: Heterogeneous hepatic echotexture compatible with fatty liver. Mild intrahepatic ductal dilatation. Cholelithiasis. Pericholecystic fluid. Thickened gallbladder wall of 7.3 mm. Correlate clinically with possibility of acute cholecystitis. HIDA scan with CCK is recommended if warranted. Common bile duct measures 6.5 mm in AP diameter. Pancreas and right kidney are normal. Right kidney measures 13.5 x 6 x 6cm in size. Hepatopetal blood flow is noted in portal vein. IMPRESSION: ? Acute cholecystitis. Correlate clinically. Fatty liver. Vanessa Jackman MD [place] ORDERABLES * CBC W/O DIFFERENTIAL (12/22/2018 5:28 AM CDT) WBC 10.0 4.0 - 10.0 x10E9/L 12/22/2018 5:36 AM CDT [facility] RBC 4.23 3.93 - 5.22 x10E12/L 12/22/2018 5:36 AM CDT [facility] Hemoglobin 13.3 11.2 - 15.7 gm/dL 12/22/2018 5:36 AM CDT [facility] Hematocrit 39.6 34.1 - 44.9 % 12/22/2018 5:36 AM CDT [facility] MCV 93.6 78.0 - 100.0 fl 12/22/2018 5:36 AM CDT [facility] MCH 31.4 25.6 - 34.0 pg 12/22/2018 5:36 AM CDT [facility] MCHC 33.6 32.3 - 36.5 gm/dL 12/22/2018 5:36 AM CDT [facility] RDW 13.2 11.6 - 14.4 % 12/22/2018 5:36 AM CDT [facility] MPV 9.6 9.4 - 12.4 fl 12/22/2018 5:36 AM CDT [facility] Platelet Count 191 163 - 369 x10E9/L 12/22/2018 5:36 AM CDT [facility] Blood BLOOD SPECIMEN / Unknown Lab Venipuncture / Unknown 12/22/2018 5:28 AM CDT 12/22/2018 5:33 AM CDT Dell Rivers MD LAB - HEMATOLOGY ORD ERABLES [facility] [address] * LACTIC ACID BLOOD (12/22/2018 5:28 AM CDT) [facility] Lactic Acid 1.13 0.5 - 2 mmol/L 12/22/2018 5:47 AM CDT [facility] Blood BLOOD SPECIMEN / Unknown Lab Venipuncture / Unknown 12/22/2018 5:28 AM CDT 12/22/2018 5:33 AM CDT Dell Rivers MD LAB - CHEMISTRY ORDE RABPAMELA [facility] [address] * XR HAND 3+ VW RIGHT [id number] (11/19/2016 2:32 PM CDT) Anatomical Region Laterality Modality Wrist / Hand Radiographic Silvia ging 11/19/2016 2:33 PM CDT Impressions 11/19/2016 3:07 PM CDT COMPARISON: None. Spiral fracture of the fourth metatarsal shaft. Soft tissue swelling. No dislocation or displacement. Report faxed to Dr. Esteban Cody's office at 2:45 p.m. on 11/19/2016. Call subsequently made to Estephanie Masterson to confirm receipt of report. Edited by Keke Burleson on 11/19/2016 2:58 PM Narrative 11/19/2016 3:07 PM CDT PROCEDURE: XR HAND 3+ VW RIGHT 11/19/2016 2:33 PM HISTORY: Contusion of right hand, initial encounter. FINDINGS AND Procedure Note Junior Cody MD - 11/19/2016 PROCEDURE: XR HAND 3+ VW RIGHT 11/19/2016 2:33 PM HISTORY: Contusion of right hand, initial encounter. FINDINGS AND IMPRESSION COMPARISON: None. Spiral fracture of the fourth metatarsal shaft. Soft tissue swelling. No dislocation or displacement. Report faxed to Dr. Esteban Cody's office at 2:45 p.m. on 11/19/2016. Call subsequently made to Estephanie Masterson to confirm receipt of report. Edited by Keke Burleson on 11/19/2016 2:58 PM Esteban Cody MD DIAGNOSTIC IMAGING O RDERABLES * XR WRIST 3+ VW RIGHT [id number] (11/19/2016 2:32 PM CDT) Anatomical Region Laterality Modality Wrist / Hand Radiographic Silvia ging 11/19/2016 2:35 PM CDT Impressions 11/19/2016 2:42 PM CDT COMPARISON: None. No acute fracture, dislocation, or destructive process involving the bones forming right wrist. Mild soft tissue swelling. Again identified is the fracture involving fourth metacarpal shaft. Edited by Keke Burleson on 11/19/2016 2:37 PM Narrative 11/19/2016 2:42 PM CDT PROCEDURE: XR WRIST 3+ VW RIGHT 11/19/2016 2:35 PM HISTORY: Contusion of right hand, initial encounter. FINDINGS AND Procedure Note Junior Cody MD - 11/19/2016 PROCEDURE: XR WRIST 3+ VW RIGHT 11/19/2016 2:35 PM HISTORY: Contusion of right hand, initial encounter. FINDINGS AND IMPRESSION COMPARISON: None. No acute fracture, dislocation, or destructive process involving the bones forming right wrist. Mild soft tissue swelling. Again identified is the fracture involving fourth metacarpal shaft. Edited by Keke Burleson on 11/19/2016 2:37 PM Esteban Cody MD DIAGNOSTIC IMAGING O [facility] Care Teams Bacteriologist Pharmaceutical Relationship Specialty Start Date End Date Daniella Rodriguez MD [address] [place] [address] [place] [phone] PCP - General Family Medicine 11/19/16
--- OUTSIDE RECORDS SUMMARY | 2024-06-12 14:58 | XMS_ITS | Clinical Summary ---
Author Organization [facility] Address [facility] [place] [address] Care Team Providers Care Field Operator Name Role Phone Felicitas Fatima NP Primary Care Provider [phone] Allergies No known active allergies Medications No known medications Encounters Date Type Department Care Team Description 05/28/2024 9:38 AM OIL HEATERMAN - 05/28/2024 11:58 AM OIL HEATERMAN Emergency [facility] Emergency Room [id number] [place] [address] Luis Carey MD URI Discharge Disposition: Home or Self Care (Routine Discharge) 05/28/2024 Travel from Last 3 Months Social History Tobacco Use Types Packs/Day Years Used Date Smoking Tobacco: Never Assessed Comments Unknown Sex and Gender Information Value Date Recorded Sex Assigned at Not on file Legal Sex Female 7:42 PM CDT Gender Identity Not on file Sexual Orientation Not on file Last Filed Vital Signs Vital Sign Reading Time Taken Comments Blood Pressure 148/83 05/28/2024 9:52 AM OIL HEATERMAN Pulse 77 05/28/2024 9:47 AM OIL HEATERMAN Temperature 37.1 C (98.7 F) 05/28/2024 9:47 AM OIL HEATERMAN Respiratory Rate 18 05/28/2024 9:47 AM OIL HEATERMAN Oxygen Saturation 98% 05/28/2024 9:47 AM OIL HEATERMAN Inhaled Oxygen Concentration - - Weight 81.6 kg (179 lb 14.3 oz) 05/28/2024 9:47 AM OIL HEATERMAN Height 167.6 cm (5' 6 ) 05/28/2024 9:47 AM OIL HEATERMAN Body Mass Index 29.04 05/28/2024 9:47 AM OIL HEATERMAN Plan of Treatment Health Maintenance Due Date Last Done Comments Colorectal Cancer Screening Colonoscopy (10 Years) 1955 Hepatitis C 09/17/1971 Mammogram Screening 1993 Zoster Vaccines (1 of 2) 09/17/2003 Annual Medicare Wellness Visit 2018 Pneumococcal Vaccine: 65+ Years (1 of 1 - PCV) 2018 COVID-19 Vaccine (1 - 2023-2 5 season) 2023 Influenza Adult (#1) 2024 DTaP, Tdap and Td Vaccines ( 3 - Td or Tdap) 06/26/2033 06/27/2023, 01/04/2015 Dexa Scan (General) Completed 01/15/2017, 01/15/2017 RSV Immunization or 60+ Years Completed 06/27/2023 Meningococcal B Vaccine Aged Out No l onger eligible based on patient's age to complete this topic Meningococcal Vaccine Aged Out No betty mary eligible based on patient's age to complete this topic RSV Immunizations Under 20 Months Aged Out No longer eligible b ased on patient's age to complete this topic Procedures Procedure Name Priority Date/Time Associated Diagnosis Comments ECG 12-LEAD STAT 05/28/2024 10:22 AM OIL HEATERMAN XR CHEST PORTABLE STAT 05/28/2024 10: 20 AM OIL HEATERMAN PRO-BRAIN NATRIURETIC PEPTIDE STAT 05/28/2024 10:18 AM OIL HEATERMAN TROPONIN, QUANT STAT 05/28/2024 10:18 AM OIL HEATERMAN COMPREHENSIVE METABOLIC PANEL STAT 05/28/2024 10:18 AM OIL HEATERMAN CBC W/DIFF AUTOMATED STAT 05/28/2024 10:18 AM OIL HEATERMAN RESP SYNCYTIAL VIRUS STAT 05/28/2024 10:15 AM OIL HEATERMAN INFLUENZA A & B STAT 05/28/2024 9:45 AM OIL HEATERMAN CORONAVIRUS (COVID 19) STAT 9:45 AM OIL HEATERMAN from Last 3 Months Results * ECG 12 lead (05/28/2024 10:22 AM OIL HEATERMAN) 05/28/2024 10:2 2 AM OIL HEATERMAN Narrative [facility] ([facility]) RAD - 05/29/2024 4:28 PM OIL HEATERMAN [facility] Test Date: 2024-05-28 Pat Name: [facility] Department: Room: EXAM 202 Gender: Female Core Microarchitect: : [id number] Requested By: LUIS CAREY Order Number: [id number] Reading MD: Douglas Brizuela Measurements Intervals [place] Rate: 62 P: 41 MI: 162 QRS: -20 QRSD: 105 T: 12 QT: 410 QTc: 417 Interpretive Statements SINUS RHYTHM VOLTAGE CRITERIA FOR LVH [MEETS CRITERIA IN ONE OF: R(aVL), S(V1), R(V5), R(V5/V6)+S(V1)] NONSPECIFIC T-WAVE ABNORMALITY No previous ECG available for comparison HEATERMAN Procedure Note Douglas Brizuela MD - 05/29/2024 [facility] Test Date: 2024-05-28 Pat Name: [facility] Department: Room: EXAM 202 Gender: Female Core Microarchitect: : [id number] Requested By: LUIS CAREY Order Number: [id number] Reading : Douglas Brizuela Measurements Intervals [place] Rate: 62 P: 41 MI: 162 QRS: -20 QRSD: 105 T: 12 QT: 410 QTc: 417 Interpretive Statements SINUS RHYTHM VOLTAGE CRITERIA FOR LVH [MEETS CRITERIA IN ONE OF: R(aVL), S(V1),R(V5), R(V5/V6)+S(V1)] NONSPECIFIC T-WAVE ABNORMALITY No previous ECG available for comparison HEATERMAN us Luis Carey MD ECG ORDERABLES Final Result [facility] ([facility]) RAD * XR CHEST PORTABLE (05/28/2024 10:20 AM OIL HEATERMAN) Anatomical Region Laterality Modality Chest Radiographic Silvia ging 05/28/2024 10:2 3 AM OIL HEATERMAN Impressions 05/28/2024 10:23 AM OIL HEATERMAN IMPRESSION: No acute findings Ordered By: LUIS CAREY Interpreted By: Gary Louis MD, 05/28/2024 10:23 AM Narrative 05/28/2024 10:23 AM OIL HEATERMAN [address] [place] [id number] SINGLE VIEW OF THE CHEST Clinical history: Cough Comparison: None A single view of the chest demonstrates the cardiac silhouette to be normal in size and appearance. The pulmonary vasculature appears normal. The Lungs are clear. No consolidations or effusions are seen. Procedure Note Gary Louis MD - 05/28/[address] [place] [id number] SINGLE VIEW OF THE CHEST Clinical history: Cough Comparison: None A single view of the chest demonstrates the cardiac silhouette to benormal in size and appearance. The pulmonary vasculature appears normal.The Lungs are clear. No consolidations or effusions are seen. IMPRESSION: No acute findings Ordered By: LUIS ACREY Interpreted By: Gary Louis MD, 05/28/2024 10:23 AM Luis Carey MD GENERAL IMAGING Final Result * (ABNORMAL) PRO-BRAIN NATRIURETIC PEPTIDE (05/28/2024 10:18 AM OIL HEATERMAN) PRO-B TYPE NATRIURETIC PEPTIDE 349(H) <125 PG/ML 05/28/2024 10:43 AM OIL HEATERMAN [facility] ([facility] Comment: CUT POINTS ESTABLISHED BY INTERNATIONAL [employer]LL[employer] ON NT PROBNP (ICON) STUDY (2006). AGE INDEPENDENT: <300 PG/ML HAS A 99% NEGATIVE PREDICTIVE VALUE FOR EXCLUDING ACUTE CHF <50 YEARS: >450 PG/ML IS CONSISTENT WITH ACUTE CHF 50-75 YEARS: >900 PG/ML IS CONSISTENT WITH ACUTE CHF >75 YEARS: >1800 PG/ML IS CONSISTENT WITH ACUTE CHF IN PATIENTS WITH RENAL INSUFFICIENCY (GFR <60), >1200 PG/ML YIELDS A DIAGNOSTIC SENSITIVITY AND SPECIFICITY OF 89% AND 72% FOR ACUTE CHF. 05/28/2024 10:1 8 AM OIL HEATERMAN us Luis Carey MD LABORATORY Final Result [facility] [address] [place] [address], * (ABNORMAL) COMPREHENSIVE METABOLIC PANEL (05/28/2024 10:18 AM OIL HEATERMAN) GLUCOSE 141(H) 70 - 99 MG/DL 05/28/2024 10:43 AM [facility] BUN 11 7 - 18 MG/DL 05/28/2024 10:43 AM [facility] CREATININE S/P/B 1.23(H) 0.55 - 1.02 MG/DL 05/28/2024 10:43 AM [facility] SODIUM S/P/B 140 136 - 145 MMOL/L 05/28/2024 10:43 AM [facility] POTASSIUM S/P/B 3.1(L) 3.5 - 5.1 MMOL/L 05/28/2024 10:43 AM [facility] CHLORIDE S/P/B 100 100 - 108 MMOL/L 05/28/2024 10:43 AM [facility] CO2 25.7 21 - 32 MMOL/L 05/28/2024 10:43 AM [facility] CALCIUM S/P/B 9.5 8.5 - 10.1 MG/DL 05/28/2024 10:43 AM [facility] BILIRUBIN TOTAL S/P/B 1.3(H) 0.2 - 1.2 MG/DL 05/28/2024 10:43 AM [facility] TOTAL PROTEIN S/P/B 7.6 6.4 - 8.2 G/DL 05/28/2024 10:43 AM [facility] ALBUMIN S/P/B 3.0(L) 3.4 - 5.0 G/DL 05/28/2024 10:43 AM [facility] AST 15 15 - 37 U/L 05/28/2024 10:43 AM [facility] ALT 18 14 - 55 U/L 05/28/2024 10:43 AM [facility] ALKALINE PHOSPHATASE S/P/B 75 50 - 136 U/L 05/28/2024 10:43 AM [facility] ANION GAP 14.3 5 - 15 MMOL/L 05/28/2024 10:43 AM [facility] BUN CREATININE RATIO 8.9 6 - 26 05/28/2024 10:43 AM [facility] A/G RATIO 0.7(L) 1.0 - 2.0 RATIO 05/28/2024 10:43 AM [facility] GFR ESTIMATE 47(L) >90 ML/MIN/1.7 3 M2 05/28/2024 10:43 AM [facility] Comment: NOTE: eGFR is not calculated for patients <18 years of age. This is an estimated GFR calculation using the new CKD EPI creatinine equation without race and so does not require a correction factor for race. This estimated GFR should not be used for calculating drug doses. 05/28/2024 10:1 8 AM OIL HEATERMAN us Luis Carey MD LABORATORY Final Result [facility] [address] [place] [address], * (ABNORMAL) CBC W/DIFF AUTOMATED (05/28/2024 10:18 AM OIL HEATERMAN) WBC 9.94 4.4 - 11.0 x10'3/uL 05/28/2024 10:25 AM [facility] RBC 4.33(L) 4.50 - 5.10 x10'6/uL 05/28/2024 10:25 AM [facility] HGB 13.1 12.3 - 15.3 G/DL 05/28/2024 10:25 AM [facility] HCT 39.1 35.9 - 44.6 % 05/28/2024 10:25 AM [facility] MCV 90.3 80.0 - 96.0 FL 05/28/2024 10:25 AM [facility] MCH 30.3 25.3 - 30.9 PG 05/28/2024 10:25 AM [facility] MCHC 33.5 31.0 - 34.1 G/DL 05/28/2024 10:25 AM [facility] RDW 13.6 12.4 - 15.1 % 05/28/2024 10:25 AM [facility] PLT 260 151 - 353 x10'3/uL 05/28/2024 10:25 AM [facility] MPV 9.7 9.6 - 12.0 FL 05/28/2024 10:25 AM [facility] RBC MORPHOLOGY NORMAL 05/28/2024 10:25 AM [facility] PLT MORPH. NORMAL 05/28/2024 10:25 AM [facility] WBC MORPHOLOGY NORMAL 05/28/2024 10:25 AM [facility] LYMPHOCYTES % 31.7 15.8 - 45.0 % 05/28/2024 10:25 AM [facility] NEUTROPHILS % 58.9 42.1 - 71.9 % 05/28/2024 10:25 AM [facility] MONOCYTES % 8.5 5.7 - 12.5 % 05/28/2024 10:25 AM [facility] EOSINOPHILS 0.3 0.0 - 5.6 % 05/28/2024 10:25 AM [facility] BASOPHILS 0.1 0.0 - 1.3 % 05/28/2024 10:25 AM [facility] ABS. NEUTROPHILS 5.86 1.40 - 6.00 x10'3/uL 05/28/2024 10:25 AM [facility] IMMATURE GRANS % 0.5 0.0 - 0.5 % 05/28/2024 10:25 AM [facility] ABS. LYMPHOCYTES 3.15 0.80 - 4.70 x10'3/uL 05/28/2024 10:25 AM [facility] 05/28/2024 10:1 8 AM [facility] us Luis Carey MD LABORATORY Final Result [facility] [address] [place] [address], * TROPONIN, QUANT (05/28/2024 10:18 AM [facility]) Pathologist [facility] TROPONIN I HIGH SENSITIVITY 11 0 - 50 ng/L 05/28/2024 10:51 AM [facility] Comment: HIGH DOSES OF BIOTIN, TROPONIN-SPECIFIC AUTOANTIBODIES, AND ANTIBODY THERAPY CONTAINING HAMA MAY INTERFERE WITH THIS TEST RESULT. CORRELATION TO CLINICAL HISTORY AND PRESENTATION RECOMMENDED. 05/28/2024 10:1 8 AM OIL HEATERMAN us Luis Carey MD LABORATORY Final Result Performing Organization Address City/[facility]/ZIP Co de Phone Number [facility] [address] [place] [address], [place] [phone] * RESP SYNCYTIAL VIRUS (05/28/2024 10:15 AM OIL HEATERMAN) SPECIMEN TYPE NASOPHARYNGEAL SWAB 05/28/2024 10:15 AM OIL HEATERMAN [facility] RAPID RSV NEGATIVE NEGATIVE 05/28/2024 10:41 AM OIL HEATERMAN [facility] NASOPHARYNGEAL SWAB / Unknown 05/28/2024 10:15 AM OIL HEATERMAN us Luis Carey MD MICROBIOLOGY - GENERAL ORDERABL ES Final Result Performing Organization Address [facility] Co de Phone Number [facility] [address] [place] [address], [place] [phone] * CORONAVIRUS (COVID-19) MOLECULAR (05/28/2024 9:45 AM OIL HEATERMAN) CORONAVIRUS SARS COV 2 RNA NEGATIVE NEGATIVE 05/28/2024 10:12 AM OIL HEATERMAN [facility] Comment: NEGATIVE RESULTS DO NOT RULE OUT COVID 19 AND SHOULD NOT BE USED THE SOLE BASIS FOR TREATMENT OR PATIENT MANAGEMENT DECISIONS, INCLUDING INFECTION CONTROL DECISIONS. NEGATIVE RESULTS SHOULD BE CONSIDERED IN THE CONTEXT OF A PATIENT'S RECENT EXPOSURES, HISTORY AND THE PRESENCE OF CLINICAL SIGNS AND SYMPTOMS CONSISTENT WITH COVID 19. THE ID NOW COVID-19 2.0 TEST HAS BEEN AUTHORIZED BY THE FDA UNDER EAU FOR USE BY AUTHORIZED LABORATORIES. PERFORMED BY NUCLEIC ACID AMPLIFICATION FOR MOLECULAR QUALITATIVE DETECTION OF SARS-COV-2. SPECIMEN TYPE NASAL 05/28/2024 9:55 AM OIL HEATERMAN [facility] NASOPHARYNGEAL SWAB / Unknown 05/28/2024 9:45 AM OIL HEATERMAN us Luis Carey MD MICROBIOLOGY - GENERAL ORDERABL ES Final Result Performing Organization Address City/[facility]/ZIP Co de Phone Number [facility] [address] [place] [address], [place] [phone] * INFLUENZA A & B (05/28/2024 9:45 AM OIL HEATERMAN) SPECIMEN TYPE NASOPHARYNGEAL SWAB 05/28/2024 10:00 AM OIL HEATERMAN [facility] INFLUENZA A NEGATIVE NEGATIVE 05/28/2024 10:14 AM OIL HEATERMAN [facility] INFLUENZA B NEGATIVE NEGATIVE 05/28/2024 10:14 AM OIL HEATERMAN [facility] NASOPHARYNGEAL SWAB / Unknown 05/28/2024 9:45 AM OIL HEATERMAN us Luis Carey MD MICROBIOLOGY - GENERAL ORDERABL ES Final Result Performing Organization Address City/[facility] Co de Phone Number [facility] [address] [place] [address], [place] [phone] from Last [address] [place] [address] [address] [place] [address] Care Teams Field Operator Relationship Specialty Start Date End Date Felicitas Fatima NP [address] [place] [address] PCP - General NURSE PRACTITIONER 05/28/24
--- OUTSIDE RECORDS SUMMARY | 2024-06-12 14:58 | XMS_ITS | Clinical Summary ---
Author Organization [facility] Address [address] [facility] [place] [address] Care Team Providers Care Automatic Machine Attendant Name Role Phone Daniella Rodriguez MD Primary Care Provider [phone] Source Comments [facility],non-owned Affiliates and Associated Physician Practices is amultiple site organization consisting of ambulatory clinics and hospital sitesin [place], [place], [place] and [place]. This disclosure is being madepursuant to the Care Everywhere program and may not contain all information available regarding this patient. Last updated 18.[facility] Creactives Allergies Active Allergy Reactions Criticality Noted Date Comments Aspirin Unknown 12/22/2018 Penicillins Unknown 12/22/2018 Medications * Be aware that medications may not be up to date on this document. Alwaysverify current medications with the patient. Medication Sig Dispensed Refills Start Date End Date Status albuterol HFA (PROVENTIL;VENTOLI N;PROAIR) 108 (90 Base) MCG/ACT inhaler Inhale 2 (two) puffs by mouth every 4 hours as needed for Shortness of Breath or Wheezing 1 Inhaler 11/01/2020 Active acetaminophen (TYLENOL) 500 MG tablet Take 1,000 mg by mouth every 6 hours as needed for Fever or Pain Maximum allowable Acetaminophen amount = 4 Grams (4000 mg) / 24 hours. Active multivitamin daily tablet Take 1 tablet by mouth daily with food Active guaiFENesin-dextro methorphan (ROBITUSSIN DM) 100-10 MG/5ML syrup Take 10 mL by mouth every 8 hours as needed for Cough 118 mL 11/11/2020 Active AeroChamber Plus (AEROCHAMBER) Inhale by mouth as directed 1 Each 11/11/2020 Active predniSONE (DELTASONE) 10 MG tablet Take 4 tablets daily for 4 days, take 3 tablets daily for 2 days, take 2 tablets daily for 2 days, then take 1 tablet daily for 2 days 28 tablet 11/11/2020 Active Active Problems Problem Noted Date Diagnosed Date [...] Mass Index 23.52 11/08/2020 10:08 PM CDT Plan of Treatment Health Maintenance Due Date Last Done Comments BONE DENSITY TESTING 1955 COLOGUARD (AGES 45-75) - COL ON CA SCREENING 1955 COLON MONITORING 1955 COLONOSCOPY - COLON CA SCREENING 1955 CT COLONOGRAPHY - COLON CA SCREENING 1955 Colorectal Cancer Screening 1955 FIT - COLON CA SCREENING 1955 FLEX SIG - COLON CA SCREENING 1955 LIPID TESTING 1955 MAMMOGRAM 1955 MEDICARE AWV 12 MONTHS 1955 HEPATITIS C SCREENING 09/12/1971 DTAP/TDAP/TD VACCINES (1 - Tdap) 1972 PNEUMOCOCCAL VACCINE 50+ (1 of 1 - PCV) 09/17/2003 ZOSTER VACCINE (1 of 2) 09/17/2003 COVID-19 VACCINE (1 - 2023-2 5 season) 2023 INFLUENZA VACCINE (#1) 2023 DEPRESSION SCREENING 04/20/2024 Respiratory Syncytial Virus (RSV) Vaccine Pt: or over 60 yrs (1 - 1-dose 75+ series) 2028 HEPATITIS B VACCINE Aged Out No longe r eligible based on patient's age to complete this topic HIB VACCINE Aged Out No longer eligi ble based on patient's age to complete this topic HPV VACCINE Aged Out No longer eligi ble based on patient's age to complete this topic MENINGOCOCCAL (Group B) VACCINE Aged Out No longer eligible based on patient's age to complete this topic MENINGOCOCCAL VACCINE Aged Out No betty mary eligible based on patient's age to complete this topic Advance Directives * Full Code (Latest Code Status on File) Date Activated Date Inactivated Comments 11/08/2020 6:18 PM 11/11/2020 3:29 PM * Full Code Date Activated Date Inactivated Comments 12/23/2018 10:45 AM 12/23/2018 10:06 PM * Full Code Date Activated Date Inactivated Comments 12/22/2018 4:28 AM 12/23/2018 10:45 AM Care Teams Automatic Machine Attendant Relationship Specialty Start Date End Date Daniella Rodriguez MD [address] [place] [address] [place] [id number] PCP - General Family Medicine 11/19/16
--- OUTSIDE RECORDS SUMMARY | 2024-06-12 14:58 | XMS_ITS | Referral Summary ---
Author Organization [facility] Address [address] [facility] [place] [address] Care Team Providers Care Creel Clerk Name Role Phone Daniella Rodriguez MD Primary Care Provider [phone] Source Comments [facility],non-owned Affiliates and Associated Physician Practices is amultiple site organization consisting of ambulatory clinics and hospital sitesin [place], [place], [place] and [place]. This disclosure is being madepursuant to the Care Everywhere program and may not contain all information available regarding this patient. Last updated 18.[facility] Allergies Active Allergy Reactions Criticality Noted Date [...] Mass Index 23.52 11/08/2020 10:08 PM CDT Functional Status Functional Status Response Date of Assess ment Is person deaf or have serious hearing difficult y? No 11/08/2020 Is person blind or have serious difficulty seein g? No 11/08/2020 Does person have serious dif ficulty walking/climbing stairs? No 11/08/2020 Does person have difficulty dressing/bathing? No 11/08/2020 Does person have difficulty doing errands alone? No 11/08/2020 Cognitive Status Response Date of Assessm ent Does person have difficulty concentrating/remembering/making decisions? No 11/08/2020 Plan of Treatment Not on file Advance Directives * Full Code (Latest Code Status on File) Date Activated Date Inactivated Comments 11/08/2020 6:18 PM 11/11/2020 3:29 PM * Full Code Date Activated Date Inactivated Comments 12/23/2018 10:45 AM 12/23/2018 10:06 PM * Full Code Date Activated Date Inactivated Comments 12/22/2018 4:28 AM 12/23/2018 10:45 AM Care Teams Creel Clerk Relationship Specialty Start Date End Date Daniella Rodriguez MD [address] [place] [address] [place] [address] PCP - General Family Medicine 11/19/16
--- OUTSIDE RECORDS SUMMARY | 2024-06-12 14:58 | XMS_ITS | Continuity of Care Document ---
Author Organization [facility] Address [address] [place] [address] [address] [place] [address] Phone Care Team Providers Care Community Sports Coordinator Name Role Phone Jillian Jack Unavailable Unavailable Advance Directives Directive Yes / No Effective Date File Name No Information Encounters Encounter Description Practice Location Reason(s) For Visit Diagnoses Date Provider Providers Copied on Encounter [facility], [address], [place], [place], [id number], [place] tel:[phone] [facility] No Information Leon-2 2-[address] Marcie Walsh. [address] , [address], [place], [address], [place]. tel:[phone] Family History Family Member Type Diagnosis Age At Onset No Information Payers Payer name Insurance type Covered republican ID Authoriza tion(s) No Information Social History Type Description Quantity Date Captured Comments Sex Female Smoking Status No Information Chief Complaint And Reason For Visit No Information Reason For Referral Reason For Referral No Information History Of Present Illness Encounter Date Complaint History Of Prese nt Illness No Information Functional Status Date Functional Assessmen t No Information Instructions Date Instruction Additional Infor mation No Information Assessments Type Assessment Date No Information Patient Care Teams Name Effective Dates (start - stop) Status Members No Information
[2024-06-12 15:00] VITALS: BP 177/96; PULSE 83; RESP 15; TEMP 36.6; O2SAT 100
--- NOTE | 2024-06-12 16:44 | ED_ITS ---
HPI - Extremity Injury (Lower) General Chief Complaint: Extremity Injury, Lower <Natacha Andrews PA-C - Last Filed: 06/13/24 01:28> Stated Complaint: R ankle pain s/p fall <Natacha Andrews PA-C - Last Filed: 06/13/24 01:28> Time Seen by Provider: 06/12/24 16:44 <Natacha Andrews PA-C - Last Filed: 06/13/24 01:28> Focused HPI: This is a 68 year old female that presents to the ER for right ankle pain. Reports she was getting out of the car and slipped and fell. Reports twisting her ankle and feeling a pop. Reports pain and swelling. She did not hit her head or lose consciousness. GENERAL: Well-appearing, well-nourished, and in no acute distress. HEAD: Normocephalic, atraumatic. CHEST: Clear to auscultation. ?No respiratory distress. HEART: Regular rate and rhythm.? NEURO: ?Alert and oriented x3. Patient screened in triage and initial orders placed.? ?Additional care and disposition to be based upon?diagnostic testing and treatment. <Natacha Andrews PA-C - Last Filed: 06/13/24 01:28> History of Present Illness HPI Narrative: Agree with the HPI as described above. Patient has history of hypertension otherwise was in her normal state of health. Has a previous ankle surgery on the right side with calcaneal fixation after an arch collapse [address] Burt. <Natacha Andrews PA-C - Last Filed: 06/13/24 01:28> Agree with the HPI as described above. Patient has history of hypertension otherwise was in her normal state of health. Has a previous ankle surgery on the right side with calcaneal fixation after an arch collapse [address] Hawkins. <Ronald Carrillo MD - Last Filed: 06/12/24 20:46> Related Data Home Medications: Home Medications ?Medication ?Instructions ?Recorded ?Confirmed ?Last Taken ?Type No Home Medications 06/12/24 06/12/24 Unknown History <Natacha Andrews PA-C - Last Filed: 06/13/24 01:28> Allergies/Adverse Reactions: Allergies Allergy/AdvReac Type Severity Reaction Status Date / Time Penicillins Allergy Unknown Rash Verified 06/12/24 18:35 aspirin AdvReac Severe NOSE BLEEDS Verified 06/12/24 18:35 hydromorphone (From Dilaudid) AdvReac Intermediate Hallucinati Verified 06/12/24 18:35 ng <Natacha Andrews PA-C - Last Filed: 06/13/24 01:28> Review of Systems 2 Review of Systems: As reviewed above in HPI <Ronald Carrillo MD - Last Filed: 06/12/24 20:46> PMFSH Family History Family History: Family History Other Cerebrovascular accident <Natacha Andrews PA-C - Last Filed: 06/13/24 01:28> Social History Social History: Social History Smoking status: Never smoker Alcohol intake: never Substance use: never Do You Feel Safe in your Home?: No Lack of Transportation: No Lack of Food: Never True Current Housing: I Have Housing Concerned About Future Housing: No Difficulty Paying Gas/Electric Bills: No Difficulty Paying for Meds: No Currently Unemployed: No Education: High School Diploma/GED Difficulty w/ Childcare or Family Care: No Spiritual care concerns: No <Natacha Andrews PA-C - Last Filed: 06/13/24 01:28> Exam 2 Narrative: GENERAL: [Well-appearing, well-nourished, and in no acute distress.] HEAD: [Normocephalic, atraumatic.] EYES: [PERRLA and EOMI.] ENT: Nares clear, no rhinorrhea or epistaxis. Mucous membranes moist. NECK: Supple. CHEST: [Clear to auscultation. No respiratory distress.] HEART: [Regular rate and rhythm]. No murmur heard. [Normal peripheral pulses.] ABDOMEN: [Soft, nondistended], [nontender], [No rigidity or guarding] EXTREMITIES: Swollen tender right ankle, tenderness to palpation along the lateral malleolus. Some minor overlying ecchymoses but no significant deformity. There is tenderness to palpation but no tense compartments. She is able to plantar and dorsiflex at the ankle albeit with some pain. Able to wiggle the toes. 2+ dorsalis pulse. SKIN: Warm, dry, no rash. NEURO: [No focal deficits]. Alert and oriented [x3.] PSYCH: [Normal mood and affect.] <Ronald Carrillo MD - Last Filed: 06/12/24 20:46> Course Vital Signs Vital signs: Vital Signs Temperature 97.9 F 06/12/24 15:00 Pulse Rate 83 06/12/24 15:00 Respiratory Rate 15 06/12/24 15:00 Blood Pressure 177/96 H 06/12/24 15:00 Pulse Oximetry 100 06/12/24 15:00 Temperature 97.5 F L 06/12/24 22:15 Pulse Rate 85 06/12/24 22:15 Respiratory Rate 18 06/12/24 22:15 Blood Pressure 152/98 H 06/12/24 22:15 Pulse Oximetry 97 06/12/24 22:15 Oxygen Delivery Room Air 06/12/24 22:01 <Natacha Andrews PA-C - Last Filed: 06/13/24 01:28> Vital Signs Temperature 97.9 F 06/12/24 15:00 Pulse Rate 83 06/12/24 15:00 Respiratory Rate 15 06/12/24 15:00 Blood Pressure 177/96 H 06/12/24 15:00 Pulse Oximetry 100 06/12/24 15:00 Temperature 97.5 F L 06/12/24 22:15 Pulse Rate 85 06/12/24 22:15 Respiratory Rate 18 06/12/24 22:15 Blood Pressure 152/98 H 06/12/24 22:15 Pulse Oximetry 97 06/12/24 22:15 Oxygen Delivery Room Air 06/12/24 22:01 <Ronald Carrillo MD - Last Filed: 06/12/24 20:46> Procedures Orthopedic Splinting/Casting Injury #1: Splinting/Casting Date: 06/12/24 <Ronald Carrillo MD - Last Filed: 06/12/24 20:46> Splinting/Casting Time: 20:46 <Ronald Carrillo MD - Last Filed: 06/12/24 20:46> Side: right <Ronald Carrillo MD - Last Filed: 06/12/24 20:46> Lower Extremity Injury Location: ankle <Ronald Carrillo MD - Last Filed: 06/12/24 20:46> Splint: customized in ED (Posterior short-leg fiberglass splint with stirrup support.) <Ronald Carrillo MD - Last Filed: 06/12/24 20:46> Pre-Procedure Neuro Vascular Exam: normal <Ronald Carrillo MD - Last Filed: 06/12/24 20:46> Post-Procedure Neuro Vascular Exam: normal <Ronald Carrillo MD - Last Filed: 06/12/24 20:46> MDM - Extremity Injury (Lower) MDM Narrative Medical decision making narrative: 68-year-old female with a past medical history including hypertension and 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 She presents today after rolling her right ankle while slipping on ice outside. Not strike her head or lose consciousness. Denies any pain aside from the ankle. She has some swelling and tenderness around the right ankle with concern for potential fracture of either the tibia or fibula. Suspicion for trimalleolar fracture also likely given her degree of swelling. She has 2+ dorsalis pedis pulses and warm extremities with good range of motion of the toes. Plantar and dorsiflexion of the ankle is limited secondary to pain and likely fracture. X- rays were obtained as well as preop laboratory studies including CBC, CMP, coags and an EKG. Vital signs are stable with some mild hypertension but no other derangements. Patient is comfortable. She is given morphine for analgesia. X-ray shows a trimalleolar fracture. I discussed the case with the orthopedic surgeon on-call Dr. Wagner who agreed for operative intervention likely in the morning. Patient is placed into a posterior short-leg splint with stirrup support, neuro vasculature was success before and after with good made perfusion to the foot. Patient was made NPO at midnight, pain control regimen was placed and I spoke to the hospitalist who accepted the patient to admit to the hospital at this time. Patient was comfortable the plan of care and admitted to a medical-surgical bed. As needed pain medications, Zofran and fluids were ordered. <Ronald Carrillo MD - Last Filed: 06/12/24 20:46> Medical Records Attestation: I reviewed the patient's medical records. <Ronald Carrillo MD - Last Filed: 06/12/24 20:46> Lab Data Attestation: I reviewed the patient's lab results. <Ronald Carrillo MD - Last Filed: 06/12/24 20:46> Result diagrams: 06/12/24 19:38 06/12/24 19:38 <Natacha Andrews PA-C - Last Filed: 06/13/24 01:28> Labs: Lab Results 06/12/24 Range/Units 19:38 WBC 11.1 H (4.5-10.0) K/mm3 RBC 4.89 (4.2-5.4) M/mm3 Hgb 14.7 (12.0-15.0) g/dL Hct 44.4 (37.0-47.0) % MCV 90.8 (80-100) fl MCH 30.1 (26-34) pg MCHC 33.1 (32-36) g/dl RDW 14.1 (11.5-14.5) % Plt Count 274 (150-375) k/mm3 MPV 9.2 (7.4-10.4) fl Immature Gran % (Auto) 0.3 (0-0.5) % Neut % (Auto) 65.3 (45.5-73.1) % Lymph % (Auto) 28.3 (18.3-44.2) % [place] % (Auto) 5.0 (2.6-8.5) % Eos % (Auto) 0.6 (0-4.4) % Baso % (Auto) 0.5 (0.2-1.2) % Lymph # (Auto) 3.13 (0.9-3.2) K/mm3 [place] # (Auto) 0.6 (0.1-0.6) K/mm3 Eos # (Auto) 0.1 (0-0.3) K/mm3 Baso # (Auto) 0.1 (0.0-0.1) K/mm3 Abs Immat Gran (auto) 0.03 (0.00-0.031) K/mm3 Absolute Neuts (auto) 7.2 H (1.3-6.7) K/mm3 Absolute Nucleated RBC 0.000 (0.0-0.012) K/mm3 Nucleated RBC % 0.0 (0.0-0.2) % PT 13.7 (11.1-14.7) Seconds INR 1.0 APTT 25.3 (22.3-36.8) Seconds Sodium 142 (137-145) mmol/L Potassium 3.9 (3.4-5.0) mmol/L Chloride 103 (98-107) mmol/L Carbon Dioxide 29 (22-30) mmol/L Anion Gap 10 (4-12) mmol/L BUN 16 (7-17) mg/dL Creatinine 0.87 (0.7-1.0) mg/dL Estim Creat Clear Calc 61 ml/min Estimated GFR > 60 (59 - ) Glucose 105 (65-110) mg/dL Calcium 10.3 H (8.4-10.2) mg/dL Total Bilirubin 0.9 (0.2-1.3) mg/dL AST 23 (14-36) U/L ALT 17 (6-35) U/L Alkaline Phosphatase 106 (38-126) U/L Total Protein 8.0 (6.3-8.2) g/dL Albumin 4.3 (3.5-5.1) g/dL Blood Type O Positive Antibody Screen Negative <Natacha Andrews PA-C - Last Filed: 06/13/24 01:28> Lab Results 06/12/24 Range/Units 19:38 WBC 11.1 H (4.5-10.0) K/mm3 RBC 4.89 (4.2-5.4) M/mm3 Hgb 14.7 (12.0-15.0) g/dL Hct 44.4 (37.0-47.0) % MCV 90.8 (80-100) fl MCH 30.1 (26-34) pg MCHC 33.1 (32-36) g/dl RDW 14.1 (11.5-14.5) % Plt Count 274 (150-375) k/mm3 MPV 9.2 (7.4-10.4) fl Immature Gran % (Auto) 0.3 (0-0.5) % Neut % (Auto) 65.3 (45.5-73.1) % Lymph % (Auto) 28.3 (18.3-44.2) % [place] % (Auto) 5.0 (2.6-8.5) % Eos % (Auto) 0.6 (0-4.4) % Baso % (Auto) 0.5 (0.2-1.2) % Lymph # (Auto) 3.13 (0.9-3.2) K/mm3 [place] # (Auto) 0.6 (0.1-0.6) K/mm3 Eos # (Auto) 0.1 (0-0.3) K/mm3 Baso # (Auto) 0.1 (0.0-0.1) K/mm3 Abs Immat Gran (auto) 0.03 (0.00-0.031) K/mm3 Absolute Neuts (auto) 7.2 H (1.3-6.7) K/mm3 Absolute Nucleated RBC 0.000 (0.0-0.012) K/mm3 Nucleated RBC % 0.0 (0.0-0.2) % PT 13.7 (11.1-14.7) Seconds INR 1.0 APTT 25.3 (22.3-36.8) Seconds Sodium 142 (137-145) mmol/L Potassium 3.9 (3.4-5.0) mmol/L Chloride 103 (98-107) mmol/L Carbon Dioxide 29 (22-30) mmol/L Anion Gap 10 (4-12) mmol/L BUN 16 (7-17) mg/dL Creatinine 0.87 (0.7-1.0) mg/dL Estim Creat Clear Calc 61 ml/min Estimated GFR > 60 (59 - ) Glucose 105 (65-110) mg/dL Calcium 10.3 H (8.4-10.2) mg/dL Total Bilirubin 0.9 (0.2-1.3) mg/dL AST 23 (14-36) U/L ALT 17 (6-35) U/L Alkaline Phosphatase 106 (38-126) U/L Total Protein 8.0 (6.3-8.2) g/dL Albumin 4.3 (3.5-5.1) g/dL Blood Type O Positive Antibody Screen Negative <Ronald Carrillo MD - Last Filed: 06/12/24 20:46> Imaging Data Attestation: I personally reviewed and interpreted this imaging study as follows: < Ronald Carrillo MD - Last Filed: 06/12/24 20:46> My impression: Impressions Ankle X-Ray 06/12/24 17:02 IMPRESSION: Trimalleolar fracture within the right ankle, as detailed above. <Ronald Carrillo MD - Last Filed: 06/12/24 20:46> Critical Care Time Critical Care Time Critical Care Time: No <Natacha Andrews PA-C - Last Filed: 06/13/24 01:28> Discharge Plan Discharge Clinical Impression: Ground-level fall Closed trimalleolar fracture of ankle Qualifiers: Encounter type: initial encounter Laterality: right Qualified Code(s): S82.851A - Displaced trimalleolar fracture of right lower leg, initial encounter for closed fracture Hypertension Qualifiers: Hypertension type: unspecified Qualified Code(s): I10 - Essential (primary) hypertension <Natacha Andrews PA-C - Last Filed: 06/13/24 01:28> Patient Disposition: Still a Patient <Natacha Andrews PA-C - Last Filed: 06/13/24 01:28> Condition: Stable <Natacha Andrews PA-C - Last Filed: 06/13/24 01:28> Time of Disposition: 20:45 <Natacha Andrews PA-C - Last Filed: 06/13/24 01:28> 20:45 <Ronald Carrillo MD - Last Filed: 06/12/24 20:46>
--- NOTE | 2024-06-12 19:10 | ECG_ITS ---
Test Date: 2024-06-12 20:03:27 Measurements Intervals [place] Rate: 81 P: 21 OR: 163 QRS: -21 QRSD: 87 T: 33 QT: 379 QTc: 441 Interpretive Statements SINUS RHYTHM LEFT VENTRICULAR HYPERTROPHY AND ST-T CHANGE POOR R WAVE PROGRESSION MINIMAL Q WAVES- HIGH LATERAL LEADS BASELINE ARTIFACT- I, II, III, AVR, AVL, AVF BORDERLINE ECG No previous ECG available for comparison Electronically Signed On 06-13-2024 06:41:37 [employer] RAW STOCK by Hang Casillas D.O.
--- OUTSIDE RECORDS SUMMARY | 2024-06-12 19:24 | XMS_ITS | Clinical Summary ---
Author Organization [facility] Address [facility] [place] [address] Care Team Providers [facility] [place] Former Machine Name Role Phone Felicitas Fatima NP Primary Care Provider [phone] Allergies No known active allergies Medications No known medications Encounters Date Type Department Care Team Description 05/28/2024 9:38 AM CAN FILLER - 05/28/2024 11:58 AM CAN FILLER Emergency [facility] Emergency Room [id number] [place] [id number] Luis Carey MD URI Discharge Disposition: Home [...] Comments Blood Pressure 148/83 05/28/2024 9:52 AM CAN FILLER Pulse 77 05/28/2024 9:47 AM CAN FILLER Temperature 37.1 C (98.7 F) 05/28/2024 9:47 AM CAN FILLER Respiratory Rate 18 05/28/2024 9:47 AM CAN FILLER Oxygen Saturation 98% 05/28/2024 9:47 AM CAN FILLER Inhaled Oxygen Concentration - - Weight 81.6 kg (179 lb 14.3 oz) 05/28/2024 9:47 AM CAN FILLER Height 167.6 cm (5' 6 ) 05/28/2024 9:47 AM CAN FILLER Body Mass Index 29.04 05/28/2024 9:47 AM CAN FILLER Plan of Treatment Health Maintenance Due Date [...] Comments ECG 12-LEAD STAT 05/28/2024 10:22 AM CAN FILLER XR CHEST PORTABLE STAT 05/28/2024 10: 20 AM CAN FILLER PRO-BRAIN NATRIURETIC PEPTIDE STAT 05/28/2024 10:18 AM CAN FILLER TROPONIN, QUANT STAT 05/28/2024 10:18 AM CAN FILLER COMPREHENSIVE METABOLIC PANEL STAT 05/28/2024 10:18 AM CAN FILLER CBC W/DIFF AUTOMATED STAT 05/28/2024 10:18 AM CAN FILLER RESP SYNCYTIAL VIRUS STAT 05/28/2024 10:15 AM CAN FILLER INFLUENZA A & B STAT 05/28/2024 9:45 AM CAN FILLER CORONAVIRUS (COVID 19) STAT 9:45 AM CAN FILLER from Last 3 Months Results * ECG 12 lead (05/28/2024 10:22 AM CAN FILLER) 05/28/2024 10:2 2 AM CAN FILLER Narrative [facility] ([facility]) RAD - 05/29/2024 4:[address] [facility] Test Date: 2024-05-28 Pat Name: [facility] Department: Room: EXAM 202 Gender: Female Accident Examiner: : 1955 Requested By: LUIS CAREY Order Number: [id number] Reading MD: Douglas Brizuela Measurements Intervals [place] Rate: 62 P: 41 RI: 162 QRS: -20 QRSD: 105 T: 12 QT: 410 QTc: 417 Interpretive Statements SINUS RHYTHM VOLTAGE CRITERIA FOR LVH [MEETS CRITERIA IN ONE OF: R(aVL), S(V1), R(V5), R(V5/V6)+S(V1)] NONSPECIFIC T-WAVE ABNORMALITY No previous ECG available for comparison FILLER Procedure Note Douglas Brizuela MD - 05/29/2024 [facility] Test Date: 2024-05-28 Pat Name: [facility] Department: Room: EXAM 202 Gender: Female Accident Examiner: : 1955 Requested By: LUIS CAREY Order Number: [id number] Reading : Douglas Brizuela Measurements Intervals [place] Rate: 62 P: 41 RI: 162 QRS: -20 QRSD: 105 T: 12 QT: 410 QTc: 417 Interpretive Statements SINUS RHYTHM VOLTAGE CRITERIA FOR LVH [MEETS CRITERIA IN ONE OF: R(aVL), S(V1),R(V5), R(V5/V6)+S(V1)] NONSPECIFIC T-WAVE ABNORMALITY No previous ECG available for comparison FILLER us Luis Carey MD ECG ORDERABLES Final Result [facility] ([facility]) RAD * XR CHEST PORTABLE (05/28/2024 10:20 AM CAN FILLER) Anatomical Region Laterality Modality Chest Radiographic Silvia ging 05/28/2024 10:2 3 AM CAN FILLER Impressions 05/28/2024 10:23 AM CAN FILLER IMPRESSION: No acute findings Ordered By: LUIS CAREY Interpreted By: Gary Louis MD, 05/28/2024 10:23 AM Narrative 05/28/2024 10:23 AM CAN FILLER [address] [place] [id number] SINGLE VIEW OF THE CHEST Clinical history: Cough Comparison: None A single view of the chest demonstrates the cardiac silhouette to be normal in size and appearance. The pulmonary vasculature appears normal. The Lungs are clear. No consolidations or effusions are seen. Procedure Note Gary Louis MD - 05/28/[address] [place] [id number] SINGLE VIEW OF THE CHEST Clinical history: [...] (ABNORMAL) PRO-BRAIN NATRIURETIC PEPTIDE (05/28/2024 10:18 AM CAN FILLER) PRO-B TYPE NATRIURETIC PEPTIDE 349(H) <125 PG/ML 05/28/2024 10:43 AM CAN FILLER [facility] Comment: CUT POINTS ESTABLISHED BY INTERNATIONAL [...] FOR ACUTE CHF. 05/28/2024 10:1 8 AM CAN FILLER us Luis Carey MD LABORATORY Final Result [facility] [address] [place] [address], * (ABNORMAL) COMPREHENSIVE METABOLIC PANEL (05/28/2024 10:18 AM CAN FILLER) GLUCOSE 141(H) 70 - 99 MG/DL 05/28/2024 10:43 AM [facility] BUN 11 7 - 18 MG/DL 05/28/2024 10:43 AM [facility] CREATININE S/P/B 1.23(H) 0.55 - 1.02 MG/DL 05/28/2024 10:43 AM [facility] SODIUM S/P/B 140 136 - 145 MMOL/L 05/28/2024 10:43 AM [facility] POTASSIUM S/P/B 3.1(L) 3.5 - 5.1 MMOL/L 05/28/2024 10:43 AM [facility] CHLORIDE S/P/B 100 100 - 108 MMOL/L 05/28/2024 10:43 AM [facility] CO2 25.7 21 - 32 MMOL/L 05/28/2024 10:43 AM [facility] CALCIUM S/P/B 9.5 8.5 - 10.1 MG/DL 05/28/2024 10:43 AM [facility] BILIRUBIN TOTAL S/P/B 1.3(H) 0.2 - 1.2 MG/DL 05/28/2024 10:43 AM [facility] TOTAL PROTEIN S/P/B 7.6 6.4 - 8.2 G/DL 05/28/2024 10:43 AM [facility] ALBUMIN S/P/B 3.0(L) 3.4 - 5.0 G/DL 05/28/2024 10:43 AM [facility] AST 15 15 - 37 U/L 05/28/2024 10:43 AM [facility] ALT 18 14 - 55 U/L 05/28/2024 10:43 AM [facility] ALKALINE PHOSPHATASE S/P/B 75 50 - 136 U/L 05/28/2024 10:43 AM [facility] ANION GAP 14.3 5 - 15 MMOL/L 05/28/2024 10:43 AM [facility] BUN CREATININE RATIO 8.9 6 - 26 05/28/2024 10:43 AM [facility] A/G RATIO 0.7(L) 1.0 - 2.0 RATIO 05/28/2024 10:43 AM [facility] GFR ESTIMATE 47(L) >90 ML/MIN/1.7 3 M2 05/28/2024 10:43 AM [facility] Comment: NOTE: eGFR is not calculated for patients <18 years of age. This is an estimated GFR calculation using the new CKD EPI creatinine equation without race and so does not require a correction factor for race. This estimated GFR should not be used for calculating drug doses. 05/28/2024 10:1 8 AM CAN FILLER us Luis Carey MD LABORATORY Final Result [facility] [address] [place] [address], * (ABNORMAL) CBC W/DIFF AUTOMATED (05/28/2024 10:18 AM CAN FILLER) WBC 9.94 4.4 - 11.0 x10'3/uL 05/28/2024 10:25 AM [facility] RBC 4.33(L) 4.50 - 5.10 x10'6/uL 05/28/2024 10:25 AM [facility] HGB 13.1 12.3 - 15.3 G/DL 05/28/2024 10:25 AM [facility] HCT 39.1 35.9 - 44.6 % 05/28/2024 10:25 AM [facility] MCV 90.3 80.0 - 96.0 FL 05/28/2024 10:25 AM [facility] MCH 30.3 25.3 - 30.9 PG 05/28/2024 10:25 AM [facility] MCHC 33.5 31.0 - 34.1 G/DL 05/28/2024 10:25 AM [facility] RDW 13.6 12.4 - 15.1 % 05/28/2024 10:25 AM [facility] PLT 260 151 - 353 x10'3/uL 05/28/2024 10:25 AM [facility] MPV 9.7 9.6 - 12.0 FL 05/28/2024 10:25 AM [facility] RBC MORPHOLOGY NORMAL 05/28/2024 10:25 AM [facility] PLT MORPH. NORMAL 05/28/2024 10:25 AM [facility] WBC MORPHOLOGY NORMAL 05/28/2024 10:25 AM [facility] LYMPHOCYTES % 31.7 15.8 - 45.0 % 05/28/2024 10:25 AM [facility] NEUTROPHILS % 58.9 42.1 - 71.9 % 05/28/2024 10:25 AM [facility] MONOCYTES % 8.5 5.7 - 12.5 % 05/28/2024 10:25 AM [facility] EOSINOPHILS 0.3 0.0 - 5.6 % 05/28/2024 10:25 AM [facility] BASOPHILS 0.1 0.0 - 1.3 % 05/28/2024 10:25 AM [facility] ABS. NEUTROPHILS 5.86 1.40 - 6.00 x10'3/uL 05/28/2024 10:25 AM [facility] IMMATURE GRANS % 0.5 0.0 - 0.5 % 05/28/2024 10:25 AM [facility] ABS. LYMPHOCYTES 3.15 0.80 - 4.70 x10'3/uL 05/28/2024 10:25 AM [facility] 05/28/2024 10:1 8 AM [facility] us Luis Carey MD LABORATORY Final Result [facility] [address] [place] [address], * TROPONIN, QUANT (05/28/2024 10:18 AM [facility]) Pathologist [facility] TROPONIN I HIGH SENSITIVITY 11 0 - 50 ng/L 05/28/2024 10:51 AM [facility] Comment: HIGH DOSES OF BIOTIN, TROPONIN-SPECIFIC AUTOANTIBODIES, AND ANTIBODY THERAPY CONTAINING HAMA MAY INTERFERE WITH THIS TEST RESULT. CORRELATION TO CLINICAL HISTORY AND PRESENTATION RECOMMENDED. 05/28/2024 10:1 8 AM CAN FILLER us Luis Carey MD LABORATORY Final Result Performing Organization Address City/[facility]/ZIP Co de Phone Number [facility] [address] [place] [address], [place] [phone] * RESP SYNCYTIAL VIRUS (05/28/2024 10:15 AM CAN FILLER) SPECIMEN TYPE NASOPHARYNGEAL SWAB 05/28/2024 10:15 AM CAN FILLER [facility] RAPID RSV NEGATIVE NEGATIVE 05/28/2024 10:41 AM CAN FILLER [facility] NASOPHARYNGEAL SWAB / Unknown 05/28/2024 10:15 AM CAN FILLER us Luis Carey MD MICROBIOLOGY - GENERAL ORDERABL ES Final Result Performing Organization Address [facility] Co de Phone Number [facility] [address] [place] [address], [place] [phone] * CORONAVIRUS (COVID-19) MOLECULAR (05/28/2024 9:45 AM CAN FILLER) CORONAVIRUS SARS COV 2 RNA NEGATIVE NEGATIVE 05/28/2024 10:12 AM CAN FILLER [facility] Comment: NEGATIVE RESULTS DO NOT [...] SARS-COV-2. SPECIMEN TYPE NASAL 05/28/2024 9:55 AM CAN FILLER [facility] NASOPHARYNGEAL SWAB / Unknown 05/28/2024 9:45 AM CAN FILLER us Luis Carey MD MICROBIOLOGY - GENERAL ORDERABL ES Final Result Performing Organization Address City/[facility]/ZIP Co de Phone Number [facility] [address] [place] [address], [place] [phone] * INFLUENZA A & B (05/28/2024 9:45 AM CAN FILLER) SPECIMEN TYPE NASOPHARYNGEAL SWAB 05/28/2024 10:00 AM CAN FILLER [facility] INFLUENZA A NEGATIVE NEGATIVE 05/28/2024 10:14 AM CAN FILLER [facility] INFLUENZA B NEGATIVE NEGATIVE 05/28/2024 10:14 AM CAN FILLER [facility] NASOPHARYNGEAL SWAB / Unknown 05/28/2024 9:45 AM CAN FILLER us Luis Carey MD MICROBIOLOGY - GENERAL ORDERABL ES Final Result Performing Organization Address City/[facility] Co de Phone Number [facility] [address] [place] [address], [place] [phone] from Last [address] [place] [address] Care Teams Spring Former Machine Relationship Specialty Start Date End Date Felicitas Fatima NP [address] [place] [address] PCP - General NURSE PRACTITIONER 05/28/24
--- OUTSIDE RECORDS SUMMARY | 2024-06-12 19:24 | XMS_ITS | Continuity of Care Document ---
Author Organization [facility] Address [id number] [place] [address] [address] [place] [address] Phone Care Team Providers Care Clean Energy Policy Analyst Name Role Phone Jillian Jack Unavailable Unavailable Advance Directives Directive Yes / No Effective Date File Name No Information Encounters Encounter Description Practice Location Reason(s) For Visit Diagnoses Date Provider Providers Copied on Encounter Located within [facility], [address], [place], [place], [id number], [place] tel:[phone] SEC [facility] No Information Leon-2 2-200 6 Marcie Walsh. [address] , [address], [place], [address], [place]. tel:[phone] Family History Family Member Type Diagnosis Age At Onset No Information Payers Payer name Insurance type Covered democrat ID Authoriza tion(s) No Information Social History [...]
--- OUTSIDE RECORDS SUMMARY | 2024-06-12 19:24 | XMS_ITS | Clinical Summary ---
Author Organization [facility] Address [address] [place] [address] Care Team Providers Care Traveling Representative Name Role Phone Daniella Rodriguez MD Primary Care Provider [phone] Source Comments [facility],non-owned Affiliates and Associated Physician Practices is amultiple site organization consisting of ambulatory clinics and hospital sitesin [place], [place], [place] and [place]. This disclosure is being madepursuant to the Care Everywhere program and may not contain all information available regarding this patient. Last updated 18.[facility] Allergies Active Allergy Reactions Criticality Noted Date [...] 4:28 AM 12/23/2018 10:45 AM Care Teams Traveling Representative Relationship Specialty Start Date End Date Daniella Rodriguez MD [address] [place] [address] [place] [id number] PCP - General Family Medicine 11/19/16
--- OUTSIDE RECORDS SUMMARY | 2024-06-12 19:24 | XMS_ITS | Patient Health Summary ---
Author Organization [facility] Address [address] [facility] [place] [address] Care Team Providers Care Surg Physician Asst Name Role Phone Daniella Rodriguez MD Primary Care Provider [phone] Note from [facility],non-owned Affiliates and Associated Physician Practices is amultiple site organization consisting of ambulatory clinics and hospital sitesin [place], [place], [place] and [place]. This disclosure is being madepursuant to the Care Everywhere program and may not contain all information available regarding this patient. Last updated 18.[facility] Allergies * Aspirin(Unknown) * Penicillins(Unknown) Medications * [...] EXAM (ILL)(Performed 12/23/2018) Performed for Cholecystitis * UT LAP,CHOLECYSTECTOMY/GRAPH(Performed 12/23/2018) * NM HEPATOBILIARY WO EF(Performed [...] IGG Negative Negative 11/10/2020 11:01 AM CDT [facility] Blood BLOOD SPECIMEN / Unknown Lab Venipuncture / Unknown 11/10/2020 7:19 AM CDT 11/10/2020 7:46 AM CDT Narrative [facility] - 11/10/2020 11:01 AM CDT This serologic based test was developed by [employer] and its performance characteristics determined by [facility] multisite validation and [facility]. This test has not been [...] due to past or present infection with [id number] coronavirus strains. Rigorous scientific studies have not been completed to determine if detectable IgG to SARS-CoV-2 confers protective immunity. Luke Hernandez MD LAB - CHEMISTRY KHOA ALVARADO Performing Organization Address [facility] Co de Phone Number [facility] [address] * (ABNORMAL) C-REACTIVE PROTEIN (11/10/2020 7:19 AM CDT) Only the most recent of3 resultswithin the time period is included. [facility] C-Reactive Protein 1.45(H) 0.00 - 0.50 mg/dL 11/10/2020 8:59 AM CDT [facility] Blood BLOOD SPECIMEN / Unknown Lab Venipuncture / Unknown 11/10/2020 7:19 AM CDT 11/10/2020 7:46 AM CDT Luke Hernandez MD LAB - CHEMISTRY K[facility]A ALVARADO Performing Organization Address [facility] de Phone Number [facility] [address] * (ABNORMAL) CBC W AUTO DIFFERENTIAL (11/10/2020 7:19 AM CDT) Only the most recent of5 resultswithin the time period is included. [facility] WBC 9.2 4.0 - 10.0 x10E9/L 11/10/2020 [...] 0.00 <=0 x10E9/L 11/10/2020 7:50 AM CDT [facility] Blood BLOOD SPECIMEN / Unknown Lab Venipuncture / Unknown 11/10/2020 7:19 AM CDT 11/10/2020 7:45 AM CDT Luke Hernandez MD LAB - HEMATOLOGY ORD ERABLES [facility] [address] [place], [place] [id number] [place] [address] * BASIC METABOLIC PANEL (CALCIUM TOTAL) (11/10/2020 7:19 AM CDT) Only the most recent of2 resultswithin the time period is included. Glucose 108 70 - 125 mg/dL 11/10/2020 8:59 AM CDT [facility] Sodium 140 136 - 145 mmol/L 11/10/2020 8:59 AM CDT [facility] Potassium 3.7 3.4 - 4.5 mmol/L 11/10/2020 8:59 AM CDT [facility] Chloride 107 98 - 107 mmol/L 11/10/2020 8:59 AM CDT [facility] CO2 23 22 - 29 mmol/L 11/10/2020 8:59 AM CDT [facility] Calcium 9.24 8.4 - 10.2 mg/dL 11/10/2020 8:59 AM CDT [facility] Anion Gap 14 10 - 20 mmol/L 11/10/2020 8:59 AM CDT [facility] BUN 16.6 9.8 - 20.1 mg/dL 11/10/2020 8:59 AM CDT [facility] Creatinine 0.81 0.57 - 1.11 mg/dL 11/10/2020 8:59 AM CDT [facility] eGFR by MDRD >60 >60 mL/min/1.7 3m2 11/10/2020 8:59 AM CDT [facility] eGFR by MDRD >60 >60 mL/min/1.7 3m2 11/10/2020 8:59 AM CDT [facility] Blood BLOOD SPECIMEN / Unknown Lab Venipuncture / Unknown 11/10/2020 7:19 AM CDT 11/10/2020 7:46 AM CDT Luke Hernandez MD LAB - CHEMISTRY [place] ALVARADO Performing Organization Address City/[facility] Co de Phone Number [facility] [address] * MAGNESIUM BLOOD (11/10/2020 7:19 AM CDT) Only the most recent of3 resultswithin the time period is included. Magnesium 1.8 1.6 - 2.6 mg/dL 11/10/2020 8:34 AM CDT [facility] Blood BLOOD SPECIMEN / Unknown Lab Venipuncture / Unknown 11/10/2020 7:19 AM CDT 11/10/2020 7:46 AM CDT Luke Hernandez MD LAB - CHEMISTRY [place] ALVARADO Performing Organization Address [facility] de Phone Number [facility] [address] * (ABNORMAL) FERRITIN (11/10/2020 7:19 AM CDT) Only the most recent of3 resultswithin the time period is included. Ferritin 1,027(H) 5 - 204 ng/mL 11/10/2020 8:59 AM CDT [facility] Blood BLOOD SPECIMEN / Unknown Lab Venipuncture / Unknown 11/10/2020 7:19 AM CDT 11/10/2020 7:46 AM CDT Luke Hernandez MD LAB - CHEMISTRY [place] ALVARADO Performing Organization Address [facility] Co de Phone Number [facility] [address] * B-TYPE NATRIURETIC PEPTIDE (11/09/2020 7:24 AM CDT) BNP 14 10 - 100 pg/mL 11/09/2020 8:28 AM CDT [facility] Blood BLOOD SPECIMEN / Unknown Lab Venipuncture / Unknown 11/09/2020 7:24 AM CDT 11/09/2020 7:57 AM CDT Luke Hernandez MD LAB - CHEMISTRY K[facility] [place] Organization Address City/State/ZIP Co de Phone Number [facility] [address] [place] [address], [facility] * (ABNORMAL) COMPREHENSIVE METABOLIC PANEL (11/09/2020 7:24 AM CDT) Only the most recent of3 resultswithin the time period is included. [facility] Glucose 110 70 - 125 mg/dL 11/09/2020 [...] - 5.0 gm/dL 11/09/2020 8:35 AM CDT [facility] Globulin Total 3.6 2.6 - 4.0 gm/dL 11/09/2020 8:35 AM CDT [facility] Albumin/Globulin Ratio 0.9 0.9 - 1.6 11/09/2020 8:35 AM CDT [facility] Bilirubin Total 0.7 0.2 - 1.2 mg/dL 11/09/2020 8:35 AM CDT [facility] Blood BLOOD SPECIMEN / Unknown Lab Venipuncture / Unknown 11/09/2020 7:24 AM CDT 11/09/2020 7:57 AM CDT Luke Hernandez MD LAB - CHEMISTRY KHO[facility] Organization Address City/State/[facility] Co de Phone Number [facility] [address] * (ABNORMAL) D-DIMER (11/08/2020 5:26 PM CDT) [facility] D-Dimer 0.54(H) <0.50 ug/mL FEU 11/08/2020 5:46 PM CDT [facility] Blood BLOOD SPECIMEN / Unknown Venipuncture / Unknown 11/08/2020 5:26 PM CDT 11/08/2020 5:31 PM CDT Narrative [facility] - 11/08/2020 5:46 PM CDT [...] - COAGULATION OR DERABLES Performing Organization Address [facility]/ZIP Co de Phone Number [facility] [address] * (ABNORMAL) LDH BLOOD (11/08/2020 5:26 PM CDT) LDH 236(H) 125 - 220 U/L 11/08/2020 6:14 PM CDT [facility] Blood BLOOD SPECIMEN / Unknown Venipuncture / Unknown 11/08/2020 5:26 PM CDT 11/08/2020 5:31 PM CDT Theodore Lozano MD LAB - CHEMISTRY [place] ALVARADO Performing Organization Address [facility] Co de Phone Number [facility] [address] * CULTURE BLOOD (11/08/2020 5:24 PM CDT) Only the most recent of4 resultswithin the time period is included. Pathologist [facility] Culture No growth day 5 LAUREN 11/14/2020 9:56 AM CDT [facility] Blood PERIPHERAL BLOOD / Unknown Venipuncture / Unknown 11/08/2020 5:24 PM CDT 11/08/2020 5:31 PM CDT Theodore Lozano MD LAB - MICROBIOLOGY O RDERABLES Performing Organization Address [facility] Co de Phone Number [facility] [address] * LACTIC ACID BLOOD REFLEX TO REPEAT (11/08/2020 5:22 PM CDT) Only the most recent of2 resultswithin the time period is included. Lactic Acid 1.66 0.5 - 2 mmol/L 11/08/2020 5:51 PM CDT [facility] Blood BLOOD SPECIMEN / Unknown Venipuncture / Unknown 11/08/2020 5:22 PM CDT 11/08/2020 5:31 PM CDT Theodore Lozano MD LAB - CHEMISTRY KHOA ALVARADO [facility] [address] [place] [address], [facility] * PROCALCITONIN LEVEL (11/08/2020 5:22 PM CDT) Procalcitonin 0.05 <=0.10 ng/mL 11/08/2020 6:17 PM CDT [facility] Blood BLOOD SPECIMEN / Unknown [...] Change in Procalcitonin Calculator is available at [email or web address] If clinical picture has not improved and PCT remains high, reevaluate and consider treatment failure or other causes. Theodore Lozano MD LAB - CHEMISTRY [place]HOA ALVARADO Performing Organization Address [facility] Co de Phone Number [facility] [address] * TROPONIN I (11/08/2020 5:22 PM CDT) [facility] Troponin I 0.020 <0.032 ng/mL 11/08/2020 6:03 PM CDT [facility] Blood BLOOD SPECIMEN / Unknown Venipuncture / Unknown 11/08/2020 5:22 PM CDT 11/08/2020 5:32 PM CDT Narrative [facility] - 11/08/2020 6:03 PM CDT The universal definition of myocardial infarction (CO) being at least one value above the 99th percentile of the upper reference limit (0.028 ng/mL combined male/female), along with evidence of CO with at least one of the following: Ischemic symptoms, pathological Q waves on electrocardiogram (ECG), ischemic ECG changes or imaging evidence of new loss of viable myocardium or new regional wall motion abnormality. An elevated TNI value alone is not sufficient to make a the diagnosis of CO, serial sampling is recommended to detect the temporal rise and fall of troponin levels characteristic of CO. Any condition resulting in myocardial cell damage can increase cardiac TNI levels. In addition to CO, these include but are not limited to congestive heart failure, arrhythmia, myocarditis and non-cardiac related causes such as pulmonary embolism, renal failure and sepsis. Theodore Lozano MD LAB - CHEMISTRY [facility]HO[facility] ALVARADO Performing Organization Address [facility] Co de Phone Number [facility] [address] * XR CHEST 1VW PORTABLE (11/08/2020 [...] Miguel Mckinnon on 11/08/2020 at 6:11 PM Narrative 11/08/2020 [...] (Bezet) 438 ms [facility] Calculated P [place] 21 degrees [facility] Calculated R [place] -22 degrees [facility] Calculated T [place] 117 degrees [facility] Interpretation EKG Normal sinus rhythm Left ventricular hypertrophy with repolarization abnormality Abnormal ECG No previous ECGs available Confirmed by MD Pili, [facility] ([id number]) on 11/10/2020 1:51:59 PM [facility] 11/08/2020 5:08 PM CDT 11/10/2020 1:51 PM CDT Narrative Procedure Note Theodore Lozano MD - 11/08/2020 4:49 PM CDT ED Events Date/Time Event User Comments 11/08/20 1648 First Provider Evaluation IGNACIO KUMAR Karis Granda [id number] [facility] EM[facility]ENC[facility] History Chief Complaint Patient presents [...] at one point her last PM her [id number] to 88%. Today her SpO2 has been [...] Social Gatherings with Friends and Family: Attends Hoahaoism Services: Active Member of Clubs or Organizations: [...] ED Physician in the absence of a concrete pavement installer: yes Interpretation: Interpretation: abnormal Rate: ECG rate: [...] A call out was placed to the [facility] and Dr. Moy was assignedas hospitalist. [...] 5:55 PM Theodore Lozano MD ECG ORDERABLES [facility] * (ABNORMAL) SARS-COV-2 (COVID-19) RAPID (11/01/2020 4:41 AM CDT) COVID-19 PCR Detected(A A) Not detected, Invalid 11/01/2020 5:30 AM CDT [facility] Microbiology SPECIMEN FROM NASOPHARYNGEAL STRUCTURE / Unknown Collection / Unknown 11/01/2020 4:41 AM CDT 11/01/2020 4:41 AM CDT Narrative [facility] - 11/01/2020 5:30 AM CDT [...] LAB - MICROBIOLOGY ORDERABLES Performing Organization Address City/State/[facility] Co de Phone Number [facility] [address] [place], [place] [address] * VAS VENOUS DOPPLER LE UNILAT RIGHT (DVT STUDY) [id number] (08/24/2019 1:15 PM CDT) Anatomical Region Laterality [...] deep venous system was performed by the grocery cashier using B-mode/grayscale, Doppler spectral analysis and color [...] deep venous system was performed by the grocery cashier using B-mode/grayscale, Doppler spectral analysis and color Doppler flow. Images demonstrate normal flow within the common femoral, femoral, popliteal and posterior tibial veins at the level of the calf. There is collapse with compression and normal augmentation. IMPRESSION No evidence of deep venous thrombosis within the veins mentioned above. Marvin Mckeon [employer] STRIPPER[employer]DYE WEIGHER HELPER VASCULAR LAB OR DERABLES * XR KNEE 3 VW RIGHT [id number] (08/24/2019 11:47 AM CDT) Anatomical Region Laterality [...] bodies. Mild adjacent vascular calcifications. Marvin Mckeon [employer]IPPER[employer] HELPER DIAGNOSTIC IMAG ING ORDERABLES * IMAGING/RADIOLOGY/XRAY RESULTS [...] Jackman MD LAB - CHEMISTRY KHOA ALVARADO [facility] Organization Address City/State/ZIP Co de Phone Number [facility] [address] * GROSS + MICRO EXAM (ILL) (12/23/2018 8:09 AM CDT) Case Report Surgical Pathology Report Case: [id number] Authorizing Provider: Vanessa Jackman MD Collected: 12/23/2018 08:09 AM Ordering Location: [facility] Received: 12/23/2018 09:43 AM Pathologist: [...] identified. No masses or lesions are present. Bulk Fluids Handler sections of this gallbladder are submitted in A1. LS/na 12/30/2018 1:32 PM CDT [facility] Disclaimer The performance characteristics of all immunohistochemical and indirect immunofluorescence stains (if any) cited in this report were determined by the Histopathology Laboratory of [facility]. Some of these tests were developed by [...] testing. This case was interpreted by the [facility] Department of Pathology. When applicable, select reference laboratory testing is performed at the [facility], [address] [place] [address]. 12/30/2018 1:32 PM CDT [facility] Embedded Images 12/30/2018 1:32 PM CDT [facility] Pathology/Cytolo gy ENTIRE GALLBLADDER / Unknown 12/23/2018 8:09 AM CDT 12/23/2018 9:43 AM CDT Vanessa Jackman MD LAB - PATHOLOGY/CYTO LOGY ORDERABLES [facility] [address] [place] [address], [facility] * NM HEPATOBILIARY FUNCTION SCAN [id number] (12/22/2018 3:51 PM CDT) Anatomical Region Laterality [...] Hepatobiliary scan otherwise unremarkable. Dell Rivers MD HI ORDERABLES * LIPASE BLOOD (12/22/2018 10:38 AM CDT) Lipase 31 8 - 78 U/L 12/22/2018 11:18 AM CDT [facility] Blood BLOOD SPECIMEN / Unknown Lab Venipuncture / Unknown 12/22/2018 10:38 AM CDT 12/22/2018 10:51 AM CDT Vanessa Jackman MD LAB - CHEMISTRY KHOA ALVARADO [facility] [address] [place] [address], [facility] * [place] ABDOMEN LIMITED [id number] (12/22/2018 10:19 AM CDT) Anatomical Region Laterality [...] Rivers MD LAB - HEMATOLOGY ORD ERABLES [facility] [address] * LACTIC ACID BLOOD (12/22/2018 5:28 AM CDT) [facility] Lactic Acid 1.13 0.5 - 2 mmol/L 12/22/2018 5:47 AM CDT [facility] Blood BLOOD SPECIMEN / Unknown Lab Venipuncture / Unknown 12/22/2018 5:28 AM CDT 12/22/2018 5:33 AM CDT Dell Rivers MD LAB - CHEMISTRY ORDE RABPAMELA [facility] [address] * XR HAND 3+ VW RIGHT [id number] (11/19/2016 2:32 PM CDT) Anatomical Region Laterality [...] RDERABLES * XR WRIST 3+ VW RIGHT [id number] (11/19/2016 2:32 PM CDT) Anatomical Region Laterality [...] PM Esteban Cody MD DIAGNOSTIC IMAGING [facility] Care Teams Surg Physician Asst Relationship Specialty Start Date End Date Daniella Rodriguez MD [address] [place] [address] [place] [id number] PCP - General Family Medicine 11/19/16
--- OUTSIDE RECORDS SUMMARY | 2024-06-12 19:24 | XMS_ITS | Referral Summary ---
Author Organization [facility] Address [address] [facility] [address] Care Team Providers Care Skimmer Name Role Phone Daniella Rodriguez MD Primary Care Provider [phone] Source Comments [facility],non-owned Affiliates and Associated Physician Practices is amultiple site organization consisting of ambulatory clinics and hospital sitesin [place], [place], [place] and [place]. This disclosure is being madepursuant to the Care Everywhere program and may not contain all information available regarding this patient. Last updated 18.[facility] [place] Allergies Active Allergy Reactions Criticality Noted Date [...] 4:28 AM 12/23/2018 10:45 AM Care Teams Skimmer Relationship Specialty Start Date End Date Daniella Rodriguez MD [address] [place] [address] [place] [phone] PCP - General Family Medicine 11/19/16
[2024-06-12 19:46] LABS: Basophils Absolute Auto 0.1 K/mm3 (0.0-0.1); Basophils Percent Auto 0.5 % (0.2-1.2); Eosinophils Absolute Auto 0.1 K/mm3 (0-0.3); Eosinophils Percent Auto 0.6 % (0-4.4); Hematocrit 44.4 % (37.0-47.0); Hemoglobin 14.7 g/dL (12.0-15.0); Immature Granulocyte Absolute 0.03 K/mm3 (0.00-0.031); Immature Granulocyte Percent A 0.3 % (0-0.5); Lymphocytes Absolute Auto 3.13 K/mm3 (0.9-3.2); Lymphocytes Percent Auto 28.3 % (18.3-44.2); Mean Corpuscular HGB Conc 33.1 g/dl (32-36); Mean Corpuscular Hemoglobin 30.1 pg (26-34); Mean Corpuscular Volume 90.8 fl (80-100); Mean Platelet Volume 9.2 fl (7.4-10.4); Monocytes Absolute Auto 0.6 K/mm3 (0.1-0.6); Neutrophils Absolute Auto 7.2 K/mm3 (1.3-6.7); Neutrophils Percent Auto 65.3 % (45.5-73.1); Platelet Count Result 274 k/mm3 (150-375); Red Blood Count 4.89 M/mm3 (4.2-5.4); Red Cell Distribution Width 14.1 % (11.5-14.5); White Blood Count 11.1 K/mm3 (4.5-10.0)
[2024-06-12 19:58] LABS: Partial Thromboplastin Time 25.3 Seconds (22.3-36.8); Prothrombin Time 13.7 Seconds (11.1-14.7)
[2024-06-12 20:00] LABS: Alanine Aminotransferase 17 U/L (6-35); Albumin Level 4.3 g/dL (3.5-5.1); Alkaline Phosphatase 106 U/L (38-126); Anion Gap 10 mmol/L (4-12); Aspartate Amino Transferase 23 U/L (14-36); Bilirubin,Total 0.9 mg/dL (0.2-1.3); Blood Urea Nitrogen 16 mg/dL (7-17); Calcium 10.3 mg/dL (8.4-10.2); Carbon Dioxide 29 mmol/L (22-30); Chloride 103 mmol/L (98-107); Estimated CRCL calculation 61 ml/min; Estimated Glomerular Filt Rate > 60; Glucose 105 mg/dL (65-110); Potassium 3.9 mmol/L (3.4-5.0); Sodium 142 mmol/L (137-145)
[2024-06-12] MEDS: LACTATED RINGERS 1,000 ML 125 ML IV CONT (20:59)
[2024-06-12] MEDS: MORPHINE SULFATE (*CRX) 4 MG/ML INJ IV PUSH (20:59)
[2024-06-12 21:06] VITALS: BP 177/108; PULSE 77; RESP 16; TEMP 36.7; O2SAT 100
--- NOTE | 2024-06-12 22:00 | ADMGEN ---
This patient, Karis Granda, was admitted to Medical Room 248-01. Patient/family oriented to hospital policies and general routines including ID bracelet, bed and alarms, visiting hours, pain management, procedures, bathroom and other care routines, personal items, smoking policy, room service/diet, and visiting hours. Information on how to activate the Rapid Response Team has been discussed. Patient/Family are encouraged to report perceived risks to care and to ask questions if they do not understand what they are told or what they should do.
[2024-06-12 22:01] VITALS: O2SAT 100; BMI 22.3
[2024-06-12 22:15] VITALS: BP 152/98; PULSE 85; RESP 18; TEMP 36.4; O2SAT 97; BMI 22.2
--- NOTE | 2024-06-12 23:30 | PM.IMHP ---
H&P: HPI History of Present Illness Date/Time: 06/12/24 23:30 Chief Complaint: 1. Fall 2. Pain in right ankle 3. Difficult gait Narrative: Karis Granda is a 68-year-old female with a medical history significant for hypertension, mitral valve prolapse Hours prior to admission, she while navigating the surroundings around her car slipped into a pit whose slopes were covered in ice; in the process she sustained a fall and a subsequent new onset, right ankle pain. She describes the pain as sharp in nature, localized, rated 8-10 in intensity, aggravated by moving the right lower extremity attempting to stand on the limb; is alleviated by immobilization of the limb; associated with malaise, restriction of her ADLs, and anxiety. She denies loss of consciousness during fall, head trauma, bleeding sites, and open injuries; she denies a recent history of recurrent falls. She does not smoke/chew tobacco, drink alcohol or consume recreational/illicit drugs Work-up findings: XR right ankle: Trimalleolar fracture within the right ankle WBC 11 Ca 10.3 ECG: NSR; no evidence of ischemia Karis Granda will be admitted, evaluated and managed for Trimalleolar fracture within the right ankle Review of Systems Review of Systems: All systems reviewed & are unremarkable except as noted in HPI and below PMFSH Family History Family History Other Cerebrovascular accident Social History Social History Smoking status: Never smoker Alcohol intake: never Substance use: never Do You Feel Safe in your Home?: No Lack of Transportation: No Lack of Food: Never True Current Housing: I Have Housing Concerned About Future Housing: No Difficulty Paying Gas/Electric Bills: No Difficulty Paying for Meds: No Currently Unemployed: No Education: High School Diploma/GED Difficulty w/ Childcare or Family Care: No Spiritual care concerns: No Meds Home Medications and Allergies Home Medications ?Medication ?Instructions ?Recorded ?Confirmed ?Type No Home Medications 06/12/24 06/12/24 History Allergies Allergy/AdvReac Type Severity Reaction Status Date / Time Penicillins Allergy Unknown Rash Verified 06/12/24 18:35 aspirin AdvReac Severe NOSE BLEEDS Verified 06/12/24 18:35 hydromorphone (From Dilaudid) AdvReac Intermediate Hallucinati Verified 06/12/24 18:35 ng Vital Signs Vital Signs - 24 hr 06/12/24 15:00 06/12/24 21:06 06/12/24 22:01 Temperature 97.9 F 98.1 F Pulse Rate 83 77 Respiratory Rate 15 16 Blood Pressure 177/96 H 177/108 H Pulse Oximetry 100 100 100 Oxygen Delivery Room Air 06/12/24 22:15 Temperature 97.5 F L Pulse Rate 85 Respiratory Rate 18 Blood Pressure 152/98 H Pulse Oximetry 97 Oxygen Delivery Exam Const: General: in distress HENMT: Face/Nose/Sinus: Normal nares present Eyes: General: appearance normal, both eyes and all related structures Pupils: Equal, round and reactive pupils present EOM: EOMs intact bilaterally Neck: Neck: supple Thyroid: thyroid normal Resp: Effort & Inspection: normal respiratory effort Cardio: Rate: regular rate Rhythm: regular rhythm GI: Inspection: non-distended GI Palp: Yes Soft to palpation Skin: General skin exam: normal color Neuro: General: No gait normal Motor exam (neuro): 5/5 motor strength present throughout and Normal motor muscle tone present throughout Extrem: Other: Right Aleksandar in cast Psych: Mental Status: mental status grossly normal H&P: Results Labs Labs: Short CBC 06/12/24 Range/Units 19:38 WBC 11.1 H (4.5-10.0) K/mm3 Hgb 14.7 (12.0-15.0) g/dL Hct 44.4 (37.0-47.0) % Plt Count 274 (150-375) k/mm3 [facility] 06/12/24 19:38 Sodium 142 Potassium 3.9 Chloride 103 Carbon Dioxide 29 BUN 16 Creatinine 0.87 Glucose 105 Calcium 10.3 H Liver Function 06/12/24 Range/Units 19:38 Total Bilirubin 0.9 (0.2-1.3) mg/dL AST 23 (14-36) U/L ALT 17 (6-35) U/L Alkaline Phosphatase 106 (38-126) U/L Albumin 4.3 (3.5-5.1) g/dL Assessment and Plan Assessment and plan (1) Closed trimalleolar fracture of ankle: Code(s): S82.853A - Displaced trimalleolar fracture of unspecified lower leg, initial encounter for closed fracture Status: Acute (2) Ground-level fall: Code(s): W18.30XA - Fall on same level, unspecified, initial encounter Status: Acute Plan Acute and principal conditions 1. Fall 2. Trimalleolar fracture, right ankle Rx: A. Orthopedic consulted B. PT/OT eval and Rx Chronic and stable conditions 1. Hx of MVP. stopped taking Metoprolol Miscellaneous care. 1. Code status. Full 2. Nutrition. NPO 3. VTE prophylaxis. SCDs; AUBREY Quality Pharmacological Therapy Was IV thrombolytic therapy given?: Yes Hospitalist MIPS Advance Care Plan I have confirmed that the patient's Advanced Care Plan is present, code status is documented, or surrogate decision maker is listed in patient medical record.: Yes Medication Reconciliation I have utilized all available resources to obtain, update and review the patients current medications (includes all prescriptions, OTC, herbals, cannabis, and nutritional supplements).: Yes The patient is not eligible for med reconciliation; the patient is in a emergent medical situation where delaying treatment would jeopardize the patients health.: Yes
[2024-06-13] VITALS (21 sets, daily range): BP systolic 152–211; BP diastolic 72–104; PULSE 68–82; RESP 12–22; TEMP 36.3–36.9; O2SAT 93–100
[2024-06-13] MEDS: SODIUM CHLORIDE 0.9% IV 1,000 ML 75 ML IV CONT ×2 (00:54→16:13)
[2024-06-13] MEDS: MORPHINE SULFATE (*CRX) 4 MG/ML INJ IV PUSH ×3 (04:49→20:53)
--- NOTE | 2024-06-13 06:41 | PM.CNOR ---
Assessment and Plan Assessment and plan (1) Closed trimalleolar fracture of ankle: Qualifiers: Encounter type: initial encounter Laterality: right Qualified Code(s): S82.851A - Displaced trimalleolar fracture of right lower leg, initial encounter for closed fracture Code(s): S82.853A - Displaced trimalleolar fracture of unspecified lower leg, initial encounter for closed fracture Status: Acute Assessment and Plan: Patient has trimalleolar ankle Fracture LEFT. Recommend ORIF. Has previous hindfoot fusion. Discussed. History of Present Illness HPI Consult date: 06/13/24 Chief complaint: Trimalleolar fracture Review of Systems Review of Systems: As reviewed above in HPI [facility] Family History Family History Other Cerebrovascular accident Social History Social History Smoking status: Never smoker Alcohol intake: never Substance use: never Do You Feel Safe in your Home?: No Lack of Transportation: No Lack of Food: Never True Current Housing: I Have Housing Concerned About Future Housing: No Difficulty Paying Gas/Electric Bills: No Difficulty Paying for Meds: No Currently Unemployed: No Education: High School Diploma/GED Difficulty w/ Childcare or Family Care: No Spiritual care concerns: No Meds Home Medications and Allergies Home Medications ?Medication ?Instructions ?Recorded ?Confirmed ?Type No Home Medications 06/12/24 06/12/24 History Allergies Allergy/AdvReac Type Severity Reaction Status Date / Time Penicillins Allergy Unknown Rash Verified 06/12/24 18:35 aspirin AdvReac Severe NOSE BLEEDS Verified 06/12/24 18:35 hydromorphone (From Dilaudid) AdvReac Intermediate Hallucinati Verified 06/12/24 18:35 ng Vital Signs Vital Signs - 24 hr 06/12/24 15:00 06/12/24 21:06 06/12/24 22:01 Temperature 97.9 F 98.1 F Pulse Rate 83 77 Respiratory Rate 15 16 Blood Pressure 177/96 H 177/108 H Pulse Oximetry 100 100 100 Oxygen Delivery Room Air 06/12/24 22:15 06/13/24 04:00 06/13/24 05:54 Temperature 97.5 F L 98.3 F Pulse Rate 85 75 Respiratory Rate 18 18 Blood Pressure 152/98 H 178/93 H Pulse Oximetry 97 97 Oxygen Delivery 06/13/24 05:55 Temperature Pulse Rate Respiratory Rate Blood Pressure 190/88 H Pulse Oximetry Oxygen Delivery Exam Narrative: Swelling NVI Pain with manipuation Eyes: General: appearance normal, both eyes and all related structures Neck: Neck: supple Resp: Effort & Inspection: normal respiratory effort Cardio: Rate: regular rate Rhythm: regular rhythm Results Labs 06/12/24 19:38 06/12/24 19:38 Labs: Abnormal lab results 06/12/24 Range/Units 19:38 WBC 11.1 H (4.5-10.0) K/mm3 Absolute Neuts (auto) 7.2 H (1.3-6.7) K/mm3 Calcium 10.3 H (8.4-10.2) mg/dL H & H 06/12/24 Range/Units 19:38 Hgb 14.7 (12.0-15.0) g/dL Hct 44.4 (37.0-47.0) % Coagulation 06/12/24 Range/Units 19:38 INR 1.0 All other labs normal.
[2024-06-13 07:36] LABS: Basophils Percent Auto 0.4 % (0.2-1.2); Eosinophils Absolute Auto 0.1 K/mm3 (0-0.3); Eosinophils Percent Auto 0.9 % (0-4.4); Hematocrit 38.1 % (37.0-47.0); Hemoglobin 12.4 g/dL (12.0-15.0); Immature Granulocyte Absolute 0.04 K/mm3 (0.00-0.031); Immature Granulocyte Percent A 0.4 % (0-0.5); Lymphocytes Absolute Auto 2.76 K/mm3 (0.9-3.2); Lymphocytes Percent Auto 27.5 % (18.3-44.2); Mean Corpuscular HGB Conc 32.5 g/dl (32-36); Mean Platelet Volume 9.4 fl (7.4-10.4); Monocytes Absolute Auto 0.6 K/mm3 (0.1-0.6); Monocytes Percent Auto 6.3 % (2.6-8.5); Neutrophils Absolute Auto 6.5 K/mm3 (1.3-6.7); Neutrophils Percent Auto 64.5 % (45.5-73.1); Platelet Count Result 241 k/mm3 (150-375); Red Blood Count 4.14 M/mm3 (4.2-5.4); Red Cell Distribution Width 14.2 % (11.5-14.5)
[2024-06-13 07:55] LABS: Alanine Aminotransferase 14 U/L (6-35); Albumin Level 3.7 g/dL (3.5-5.1); Alkaline Phosphatase 87 U/L (38-126); Anion Gap 9 mmol/L (4-12); Aspartate Amino Transferase 19 U/L (14-36); Bilirubin,Total 0.8 mg/dL (0.2-1.3); Blood Urea Nitrogen 17 mg/dL (7-17); Calcium 9.4 mg/dL (8.4-10.2); Carbon Dioxide 29 mmol/L (22-30); Chloride 103 mmol/L (98-107); Estimated CRCL calculation 66 ml/min; Estimated Glomerular Filt Rate > 60; Glucose 133 mg/dL (65-110); Potassium 3.8 mmol/L (3.4-5.0); Sodium 141 mmol/L (137-145)
--- NOTE | 2024-06-13 08:40 | P.PNIM_ITS ---
Progress Note: A&P Assessment and Plan (1) Closed trimalleolar fracture of ankle: Qualifiers: Encounter type: initial encounter Laterality: right Qualified Code(s): S82.851A - Displaced trimalleolar fracture of right lower leg, initial encounter for closed fracture Code(s): S82.853A - Displaced trimalleolar fracture of unspecified lower leg, initial encounter for closed fracture Status: Acute Assessment and Plan: 06/13/24: * Orthopedics has consulted. * ORIF recommended. * Awaiting OR. * NPO * Post-operative DVT prophylaxis per Orthopedics. * PT/OT eval after surgery per Ortho. * PRN Pain control * Fall precautions (2) Ground-level fall: Code(s): W18.30XA - Fall on same level, unspecified, initial encounter Status: Acute Assessment and Plan: 06/13/24: * Mechanical. Resulting in Trimalleolar fracture * Fall precautions (3) Hypertension: Qualifiers: Hypertension type: unspecified Qualified Code(s): I10 - Essential (primary) hypertension Code(s): I10 - Essential (primary) hypertension Status: Acute Assessment and Plan: 06/13/24: * BP elevated since presentation to ER. * Pt used to take Metoprolol for her MVP, but it was stopped on her own accord. * Will initiate BP coverage with Norvasc 5 mg daily and suggest titration as needed. * Continue to monitor and trend BP. Time Spent With Patient Time with patient: 15 - 25 minutes Subjective Date/time seen: 06/13/24 08:40 Interval history: This pt was examined at the bedside today in interval assessment. She is comfortable at this time with good pain control. She is scheduled for an ORIF with Dr. Wagner this afternoon. Her BP is noted to be high since presenting. She is started on low dose Norvasc 5 mg daily. She states she used to be on Metoprolol for her MVP but stopped it as she felt it caused her to have palpitations years ago. She has no CP, dyspnea or any other acute complaints. Review of Systems Review of Systems: All systems reviewed & are unremarkable except as noted in HPI and below Exam Const: General: comfortable and no acute distress Eyes: General: appearance normal, both eyes and all related structures Neck: Neck: supple and no JVD Resp: Effort & Inspection: normal respiratory effort Auscultation: clear to auscultation bilaterally Cardio: Rate: regular rate Rhythm: regular rhythm Heart sounds: no gallops, no murmurs and no rubs GI: Inspection: non-distended GI Palp: Yes Soft to palpation and No Tenderness to palpation present (GI) Auscultation: normal bowel sounds Skin: General skin exam: normal color, no rashes or lesions noted and no erythema Wounds: no wounds Neuro: General: No gait normal Speech: normal speech Other: Gait unable to be tested due to injury. Non-focal exam findings. Extrem: General: normal exam except as noted Other: Right ankle with splint in place secondary to acute fracture. Pt has intact sensation in toes and can move them. Psych: Mental Status: mental status grossly normal Objective Data Vital Signs Vital Signs: Vital Signs - 24 hr 06/12/24 15:00 06/12/24 21:06 06/12/24 22:01 Temperature 97.9 F 98.1 F Pulse Rate 83 77 Respiratory Rate 15 16 Blood Pressure 177/96 H 177/108 H Pulse Oximetry 100 100 100 Oxygen Delivery Room Air 06/12/24 22:15 06/13/24 04:00 06/13/24 05:54 Temperature 97.5 F L 98.3 F Pulse Rate 85 75 Respiratory Rate 18 18 Blood Pressure 152/98 H 178/93 H Pulse Oximetry 97 97 Oxygen Delivery 06/13/24 05:55 Temperature Pulse Rate Respiratory Rate Blood Pressure 190/88 H Pulse Oximetry Oxygen Delivery Intake/Output Intake/Output: Intake & Output 06/10/24 06/11/24 06/12/24 06/13/24 23:59 23:59 23:59 23:59 Intake Total 0 Output Total 200 Balance -200 Meds/Results Medications: Active Medications Generic Name Dose Route Start Last Admin Trade Name Freq PRN Reason Stop Dose Admin Acetaminophen 650 mg 06/12/24 23:19 Acetaminophen 325 Mg Tablet PO Q4H PRN Mild Pain (1-3) or Fever Hydrocodone Bitart/Acetaminophen 1 tab 06/12/24 20:39 Hydrocodone/Acetaminophen (*Crx) 5-325 Mg Tablet PO Q4H PRN Pain Rated 4-6 Heparin Sodium (Porcine) 5,000 units 06/13/24 09:00 Heparin Sodium 5,000 Units/Ml Vial SUB-Q Q12HR AUBREY Sodium Chloride 1,000 mls @ 75 mls/hr 06/12/24 23:20 06/13/24 00:54 Normal Saline Iv IV CONT 75 mls/hr .[id number] AUBREY Administration Melatonin 5 mg 06/12/24 23:19 Melatonin 5 Mg Tablet PO HS PRN Insomnia Morphine Sulfate 4 mg 06/12/24 20:39 06/13/24 04:49 Morphine Sulfate (*Crx) 4 Mg/Ml Inj IV PUSH 4 mg Q2H PRN Administration Pain Rated 7-10 Ondansetron HCl 4 mg 06/12/24 20:39 Ondansetron Inj 4 Mg/2 Ml Vial IV PUSH Q4H PRN Nausea Prochlorperazine Edisylate 10 mg 06/12/24 23:19 Prochlorperazine Edisylate 10 Mg/2 Ml Vial IV PUSH Q6H PRN Nausea And Vomiting Radiology Results: ITS Impressions Ankle X-Ray 06/12/24 17:02 IMPRESSION: Trimalleolar fracture within the right ankle, as detailed above. Labs Labs: Laboratory Results - last 24 hr 06/12/24 06/13/24 19:38 07:00 WBC 11.1 H 10.0 RBC 4.89 4.14 L Hgb 14.7 12.4 Hct 44.4 38.1 MCV 90.8 92.0 MCH 30.1 30.0 MCHC 33.1 32.5 RDW 14.1 14.2 Plt Count 274 241 MPV 9.2 9.4 Immature Gran % (Auto) 0.3 0.4 Neut % (Auto) 65.3 64.5 Lymph % (Auto) 28.3 27.5 Barber % (Auto) 5.0 6.3 Eos % (Auto) 0.6 0.9 Baso % (Auto) 0.5 0.4 Lymph # (Auto) 3.13 2.76 Barber # (Auto) 0.6 0.6 Eos # (Auto) 0.1 0.1 Baso # (Auto) 0.1 0.0 Abs Immat Gran (auto) 0.03 0.04 H Absolute Neuts (auto) 7.2 H 6.5 Absolute Nucleated RBC 0.000 0.000 Nucleated RBC % 0.0 0.0 PT 13.7 INR 1.0 APTT 25.3 Sodium 142 141 Potassium 3.9 3.8 Chloride 103 103 Carbon Dioxide 29 29 Anion Gap 10 9 BUN 16 17 Creatinine 0.87 0.80 Estim Creat Clear Calc 61 66 Estimated GFR > 60 > 60 Glucose 105 133 H Calcium 10.3 H 9.4 Total Bilirubin 0.9 0.8 AST 23 19 ALT 17 14 Alkaline Phosphatase 106 87 Total Protein 8.0 7.0 Albumin 4.3 3.7 Blood Type O Positive Antibody Screen Negative Quality VTE Prophylaxis VTE prophylaxis: mechanical ordered
--- NOTE | 2024-06-13 08:47 | PC.NURSE ---
Keke Abdalla [employer]OOK [employer] MAKER of bp 189/89. New orders received.
[2024-06-13] MEDS: amLODIPine BESYLATE 5 MG TABLET PO (08:59)
--- NOTE | 2024-06-13 12:48 | WPDHPUPDATE1 ---
History and Physical Update Update Date/Time: 06/13/24 12:48 History and Physical has been reviewed, including an updated exam of the patient. There are NO changes in the patient's condition. Risks, benefits, and alternatives have been discussed and questions answered. Patient agrees to proceed with procedure.
--- NOTE | 2024-06-13 13:07 | WPDANESEPPF ---
Anes - Initial Pre Proc Eval Procedure: Operation Date: 06/13/24 13:00 Proposed Procedures p Open Reduction Internal Fixation Right Ankle - Umberto Wagner MD Date/Time: 06/13/24 13:07 Surgeon: MARIE Fernández Pre Op Diagnosis: Trimalleolar fracture Patient Data Age: 68 Gender: F Height: 1.83 m Weight: 74.5 kg Last Vital Signs Temp 36.8 C 06/13/24 11:35 Pulse 72 06/13/24 11:35 Resp 16 06/13/24 11:35 BP 182/87 H 06/13/24 11:35 Pulse Ox 98 06/13/24 11:35 O2 Del Method Room Air 06/13/24 11:35 Allergies Allergy/AdvReac Type Severity Reaction Status Date / Time Penicillins Allergy Unknown Rash Verified 06/13/24 11:44 aspirin AdvReac Severe NOSE BLEEDS Verified 06/13/24 11:44 hydromorphone (From Dilaudid) AdvReac Intermediate Hallucinati Verified 06/13/24 11:44 ng Home Medications ?Medication ?Instructions ?Recorded ?Confirmed ?Type No Home Medications 06/12/24 06/12/24 History Laboratory Tests 06/12/24 06/13/24 19:38 07:00 WBC 11.1 H K/mm3 10.0 K/mm3 (4.5-10.0) (4.5-10.0) RBC 4.89 M/mm3 4.14 L M/mm3 (4.2-5.4) (4.2-5.4) Hgb 14.7 g/dL 12.4 g/dL (12.0-15.0) (12.0-15.0) Hct 44.4 % 38.1 % (37.0-47.0) (37.0-47.0) MCV 90.8 fl 92.0 fl (80-100) (80-100) MCH 30.1 pg 30.0 pg (26-34) (26-34) MCHC 33.1 g/dl 32.5 g/dl (32-36) (32-36) RDW 14.1 % 14.2 % (11.5-14.5) (11.5-14.5) Plt Count 274 k/mm3 241 k/mm3 (150-375) (150-375) MPV 9.2 fl 9.4 fl (7.4-10.4) (7.4-10.4) Immature Gran % (Auto) 0.3 % 0.4 % (0-0.5) (0-0.5) Neut % (Auto) 65.3 % 64.5 % (45.5-73.1) (45.5-73.1) Lymph % (Auto) 28.3 % 27.5 % (18.3-44.2) (18.3-44.2) Stearns % (Auto) 5.0 % 6.3 % (2.6-8.5) (2.6-8.5) Eos % (Auto) 0.6 % 0.9 % (0-4.4) (0-4.4) Baso % (Auto) 0.5 % 0.4 % (0.2-1.2) (0.2-1.2) Lymph # (Auto) 3.13 K/mm3 2.76 K/mm3 (0.9-3.2) (0.9-3.2) Stearns # (Auto) 0.6 K/mm3 0.6 K/mm3 (0.1-0.6) (0.1-0.6) Eos # (Auto) 0.1 K/mm3 0.1 K/mm3 (0-0.3) (0-0.3) Baso # (Auto) 0.1 K/mm3 0.0 K/mm3 (0.0-0.1) (0.0-0.1) Abs Immat Gran (auto) 0.03 K/mm3 0.04 H K/mm3 (0.00-0.031) (0.00-0.031) Absolute Neuts (auto) 7.2 H K/mm3 6.5 K/mm3 (1.3-6.7) (1.3-6.7) Absolute Nucleated RBC 0.000 K/mm3 0.000 K/mm3 (0.0-0.012) (0.0-0.012) Nucleated RBC % 0.0 % 0.0 % (0.0-0.2) (0.0-0.2) PT 13.7 Seconds (11.1-14.7) INR 1.0 APTT 25.3 Seconds (22.3-36.8) Sodium 142 mmol/L 141 mmol/L (137-145) (137-145) Potassium 3.9 mmol/L 3.8 mmol/L (3.4-5.0) (3.4-5.0) Chloride 103 mmol/L 103 mmol/L (98-107) (98-107) Carbon Dioxide 29 mmol/L 29 mmol/L (22-30) (22-30) Anion Gap 10 mmol/L 9 mmol/L (4-12) (4-12) BUN 16 mg/dL 17 mg/dL (7-17) (7-17) Creatinine 0.87 mg/dL 0.80 mg/dL (0.7-1.0) (0.7-1.0) Estim Creat Clear Calc 61 ml/min 66 ml/min Estimated GFR > 60 > 60 (59 - ) (59 - ) Glucose 105 mg/dL 133 H mg/dL (65-110) (65-110) Calcium 10.3 H mg/dL 9.4 mg/dL (8.4-10.2) (8.4-10.2) Total Bilirubin 0.9 mg/dL 0.8 mg/dL (0.2-1.3) (0.2-1.3) AST 23 U/L 19 U/L (14-36) (14-36) ALT 17 U/L 14 U/L (6-35) (6-35) Alkaline Phosphatase 106 U/L 87 U/L (38-126) (38-126) Total Protein 8.0 g/dL 7.0 g/dL (6.3-8.2) (6.3-8.2) Albumin 4.3 g/dL 3.7 g/dL (3.5-5.1) (3.5-5.1) Blood Type O Positive Antibody Screen Negative Patient hx anesthesia problems: none Family hx anesthesia problems: none Results Review: All pre-operative results and documents have been reviewed as part of the pre-operative evaluation. [facility] Past Medical History Medical History Chronic pain syndrome Family History Family History Other Cerebrovascular accident Social History Social History Smoking status: Never smoker Alcohol intake: never Substance use: never Do You Feel Safe in your Home?: No Lack of Transportation: No Lack of Food: Never True Current Housing: I Have Housing Concerned About Future Housing: No Difficulty Paying Gas/Electric Bills: No Difficulty Paying for Meds: No Currently Unemployed: No Education: High School Diploma/GED Difficulty w/ Childcare or Family Care: No Spiritual care concerns: No Anes - Eval Final PreProcedure Day of Procedure 06/13/24 13:07 Patient weight: normal Heart: regular rate and rhythm Lungs: clear to auscultation Airway: Mallampati scale class II Neurological: alert and oriented Last oral intake: >/= 8 hours ASA classification: III Emergent: no Anesthetic plan: proceed Anesthesia type and monitoring: general LMA and standard monitoring Results Review: All pre-operative results and documents have been reviewed as part of the pre-operative evaluation. Informed Consent: The patient's anesthetic plan and its attendant risks and benefits were discussed with the patient/family/POA. Questions were solicited and answers provided to the satisfaction of the patient/family/POA.
[2024-06-13] MEDS: ceFAZolin 2 GM/D5W 50 ML 2 GM/50 ML BAG IVPB ×2 (13:12→20:17)
--- NOTE | 2024-06-13 13:59 | P.OP_ITS ---
Procedure Note - Detailed Date of Procedure 06/13/24 Pre-op Diagnosis Trimalleolar fracture RIGHT Post-op Diagnosis Same Procedure Performed Open reduction internal fixation right trimalleolar ankle fracture/ Surgeon Umberto Wagner MD Sales Utility Representative CHASIDY Anesthesia General Indications Fracture and Pain Description of Procedure Patient brought to operating room #5. A general anesthetic was administered. She was sterilely prepped and draped in the usual manner. Lateral incision made over the malleolus. Dissection carried down to the fascia. The lateral malleolus was reduced and held with a lobster claw, and a 6 hole plate and screws, and an interfragmentary screw were placed. Excellent alignment was obtained. I then proceeded medially. Longitudinal incision made over the medial malleolus. Medial malleolar fracture found and 2-44mm cannulated screws placed. This gave anatomic alignment of the fracture. The mortise looked excellent. The wound was then thoroughly irrigated. The wound was cllosed with 2-0 Vicryl and tisha. Sterile dressing applied. Placed in a cam walker boot. Estimated Blood Loss 50 Urine Output 200 Complications No immediate complications Condition Stable Disposition PACU [facility] Billing Surgery - Charge Forward: Surgery Billing ([id number] Trimalleolar Ankle Fx)
[2024-06-13] MEDS: LACTATED RINGERS 1,000 ML 30 ML IV CONT (14:16)
[2024-06-13] MEDS: LABETALOL HCL INJ 100 MG/20 ML VIAL IV PUSH (14:25)
[2024-06-13] MEDS: fentaNYL CITRATE INJ (*CRX) 100 MCG/2 ML VIAL 25 MCG IV PUSH ×8 (14:28→15:08)
--- NOTE | 2024-06-13 15:44 | PCPTNOTE ---
attempted PT eval, pt not yet back from surgery, per charger operator pt is on non-weight bearing precautions, will follow
[2024-06-13] MEDS: HYDROcodone/acetaminophen (*CRX) 7.5-325 MG TABLET 1 TAB PO (16:12)
[2024-06-13] MEDS: HEPARIN SODIUM 5,000 UNITS/ML VIAL 5000 UNITS SUB-Q (20:17)
[2024-06-14] VITALS: BP 152/80; PULSE 79; RESP 18; TEMP 36.8; O2SAT 94
[2024-06-14 03:51] VITALS: BP 163/71; PULSE 70; RESP 18; TEMP 36.9; O2SAT 96
[2024-06-14 03:52] VITALS: BP 163/71; PULSE 70; RESP 18; TEMP 36.9; O2SAT 96
[2024-06-14] MEDS: HYDROcodone/acetaminophen (*CRX) 7.5-325 MG TABLET 1 TAB PO (04:21)
[2024-06-14] MEDS: ceFAZolin 2 GM/D5W 50 ML 2 GM/50 ML BAG IVPB ×2 (04:21→12:17)
[2024-06-14 05:38] LABS: Basophils Percent Auto 0.2 % (0.2-1.2); Eosinophils Absolute Auto 0.1 K/mm3 (0-0.3); Eosinophils Percent Auto 0.5 % (0-4.4); Hematocrit 34.7 % (37.0-47.0); Hemoglobin 11.5 g/dL (12.0-15.0); Immature Granulocyte Absolute 0.04 K/mm3 (0.00-0.031); Immature Granulocyte Percent A 0.4 % (0-0.5); Lymphocytes Absolute Auto 3.28 K/mm3 (0.9-3.2); Lymphocytes Percent Auto 29.9 % (18.3-44.2); Mean Corpuscular HGB Conc 33.1 g/dl (32-36); Mean Corpuscular Hemoglobin 30.3 pg (26-34); Mean Corpuscular Volume 91.6 fl (80-100); Mean Platelet Volume 9.1 fl (7.4-10.4); Monocytes Absolute Auto 0.8 K/mm3 (0.1-0.6); Monocytes Percent Auto 7.7 % (2.6-8.5); Neutrophils Absolute Auto 6.7 K/mm3 (1.3-6.7); Neutrophils Percent Auto 61.3 % (45.5-73.1); Platelet Count Result 198 k/mm3 (150-375); Red Blood Count 3.79 M/mm3 (4.2-5.4); Red Cell Distribution Width 14.3 % (11.5-14.5)
[2024-06-14] MEDS: SODIUM CHLORIDE 0.9% IV 1,000 ML 75 ML IV CONT (05:53)
[2024-06-14 05:54] LABS: Alanine Aminotransferase 12 U/L (6-35); Albumin Level 3.6 g/dL (3.5-5.1); Alkaline Phosphatase 84 U/L (38-126); Anion Gap 8 mmol/L (4-12); Aspartate Amino Transferase 18 U/L (14-36); Bilirubin,Total 0.7 mg/dL (0.2-1.3); Blood Urea Nitrogen 14 mg/dL (7-17); Carbon Dioxide 28 mmol/L (22-30); Chloride 102 mmol/L (98-107); Estimated CRCL calculation 66 ml/min; Estimated Glomerular Filt Rate > 60; Glucose 122 mg/dL (65-110); Potassium 3.7 mmol/L (3.4-5.0); Sodium 138 mmol/L (137-145)
[2024-06-14 08:00] VITALS: BP 178/81; PULSE 90; RESP 18; TEMP 36.7; O2SAT 97
--- NOTE | 2024-06-14 08:14 | P.PNIM_ITS ---
Progress Note: A&P Assessment and Plan (1) Closed trimalleolar fracture of ankle: Qualifiers: Encounter type: initial encounter Laterality: right Qualified Code(s): S82.851A - Displaced trimalleolar fracture of right lower leg, initial encounter for closed fracture Code(s): S82.853A - Displaced trimalleolar fracture of unspecified lower leg, initial encounter for closed fracture Status: Acute Assessment and Plan: 06/13/24: * Orthopedics has consulted. * ORIF recommended. * Awaiting OR. * NPO * Post-operative DVT prophylaxis per Orthopedics. * PT/OT eval after surgery per Ortho. * PRN Pain control * Fall precautions 06/14/24: * Post-op Day #1 of ORIF to right ankle by Dr. Wagner * PT eval today * Continue pain control meds. * Heparin ordered Q12 hrs. * Complete Ancef for a total of 3 doses per Ortho. (2) Ground-level fall: Code(s): W18.30XA - Fall on same level, unspecified, initial encounter Status: Acute Assessment and Plan: 06/13/24: * Mechanical. Resulting in Trimalleolar fracture * Fall precautions 06/14/24: * Continue fall precautions. * Consult PT (3) Hypertension: Qualifiers: Hypertension type: unspecified Qualified Code(s): I10 - Essential (primary) hypertension Code(s): I10 - Essential (primary) hypertension Status: Acute Assessment and Plan: 06/13/24: * BP elevated since presentation to ER. * Pt used to take Metoprolol for her MVP, but it was stopped on her own accord. * Will initiate BP coverage with Norvasc 5 mg daily and suggest titration as needed. * Continue to monitor and trend BP. 06/14/24: * BP remains elevated, but more stable than yesterday. * Adjust dose of Norvasc today to 10 mg. * Continue to monitor and trend. Subjective Date/time seen: 06/14/24 08:14 Objective Data Vital Signs Vital Signs: Vital Signs - 24 hr 06/13/24 08:45 06/13/24 10:18 06/13/24 11:35 Temperature 98.2 F Pulse Rate 70 72 Respiratory Rate 16 Blood Pressure 189/89 H 177/90 H 182/87 H Pulse Oximetry 96 98 Oxygen Delivery Room Air Oxygen Flow Rate 06/13/24 14:16 06/13/24 14:25 06/13/24 14:30 Temperature 98.4 F Pulse Rate 82 80 69 Respiratory Rate 15 14 Blood Pressure 211/104 H 208/95 H Pulse Oximetry 100 99 Oxygen Delivery Simple Face Mask Simple Face Mask Oxygen Flow Rate 8 8 06/13/24 14:45 06/13/24 15:00 06/13/24 15:10 Temperature Pulse Rate 68 71 Respiratory Rate 22 H 16 Blood Pressure 184/84 H 177/92 H Pulse Oximetry 100 99 Oxygen Delivery Simple Face Mask Simple Face Mask Room Air Oxygen Flow Rate 8 8 06/13/24 15:15 06/13/24 15:30 06/13/24 15:40 Temperature 98.4 F Pulse Rate 69 68 69 Respiratory Rate 14 12 16 Blood Pressure 160/86 H 180/84 H 170/87 H Pulse Oximetry 95 94 97 Oxygen Delivery Room Air Room Air Room Air Oxygen Flow Rate 06/13/24 16:00 06/13/24 16:15 06/13/24 16:30 Temperature 97.6 F 97.8 F 97.6 F Pulse Rate 75 72 75 Respiratory Rate 16 18 16 Blood Pressure 171/72 H 183/95 H 171/72 H Pulse Oximetry 95 97 95 Oxygen Delivery Oxygen Flow Rate 06/13/24 20:00 06/13/24 20:00 06/13/24 20:16 Temperature 97.4 F L 97.7 F Pulse Rate 76 76 Respiratory Rate 18 18 Blood Pressure 163/81 H 163/81 H Pulse Oximetry 93 93 Oxygen Delivery Room Air Oxygen Flow Rate 06/13/24 23:59 06/14/24 00:00 06/14/24 03:51 Temperature 98.2 F 98.2 F 98.5 F Pulse Rate 79 79 70 Respiratory Rate 18 18 18 Blood Pressure 152/80 H 152/80 H 163/71 H Pulse Oximetry 94 94 96 Oxygen Delivery Oxygen Flow Rate 06/14/24 03:52 Temperature 98.5 F Pulse Rate 70 Respiratory Rate 18 Blood Pressure 163/71 H Pulse Oximetry 96 Oxygen Delivery Oxygen Flow Rate Intake/Output Intake/Output: Intake & Output 06/11/24 06/12/24 06/13/24 06/14/24 23:59 23:59 23:59 23:59 Intake Total 1720 1390 Output Total 400 Balance 1320 1390 Meds/Results Medications: Active Medications Generic Name Dose Route Start Last Admin Trade Name Freq PRN Reason Stop Dose Admin Acetaminophen 650 mg 06/12/24 23:19 Acetaminophen 325 Mg Tablet PO Q4H PRN Mild Pain (1-3) or Fever Hydrocodone Bitart/Acetaminophen 1 tab 06/12/24 20:39 Hydrocodone/Acetaminophen (*Crx) 5-325 Mg Tablet PO Q4H PRN Pain Rated 4-6 Hydrocodone Bitart/Acetaminophen 1 tab 06/13/24 15:43 Hydrocodone/Acetaminophen (*Crx) 5-325 Mg Tablet PO Q3H PRN Pain Rated 4-6 Hydrocodone Bitart/Acetaminophen 1 tab 06/13/24 15:43 06/14/24 04:21 Hydrocodone/Acetaminophen (*Crx) 7.5-325 Mg Tablet PO 1 tab Q3H PRN Administration Pain Rated 4-6 Amlodipine Besylate 5 mg 06/13/24 09:00 06/13/24 08:59 Amlodipine Besylate 5 Mg Tablet PO 5 mg DAILY AUBREY Administration Aspirin 325 mg 06/13/24 21:00 06/13/24 20:19 Aspirin 325 Mg Enteric Tablet PO Not Given Q12HR AUBREY Fentanyl Citrate 25 mcg 06/13/24 13:08 06/13/24 15:08 Fentanyl Citrate Inj (*Crx) 100 Mcg/2 Ml Vial IV PUSH 25 mcg Q2M PRN Administration Pain Heparin Sodium (Porcine) 5,000 units 06/13/24 09:00 06/13/24 20:17 Heparin Sodium 5,000 Units/Ml Vial SUB-Q 5,000 units Q12HR AUBREY Administration Sodium Chloride 1,000 mls @ 75 mls/hr 06/12/24 23:20 06/14/24 05:53 Normal Saline Iv IV CONT 75 mls/hr .[id number] AUBREY Administration Lactated Ringer's 1,000 mls @ 30 mls/hr 06/13/24 13:10 06/13/24 15:40 Lr - Lactated Ringers Iv IV CONT Infused .Q24H AUBREY Infusion Lactated Ringer's 1,000 mls @ 30 mls/hr 06/13/24 13:10 06/13/24 16:10 Lr - Lactated Ringers Iv IV CONT Not Given .Q24H AUBREY Cefazolin Sodium 2 gm in 50 mls @ 100 mls/hr 06/13/24 21:00 06/14/24 04:21 Ancef 2 Gm/D5w 50 Ml IVPB 06/14/24 13:29 100 mls/hr Q8H AUBREY Administration Melatonin 5 mg 06/12/24 23:19 Melatonin 5 Mg Tablet PO HS PRN Insomnia Morphine Sulfate 4 mg 06/12/24 20:39 06/13/24 20:53 Morphine Sulfate (*Crx) 4 Mg/Ml Inj IV PUSH 4 mg Q2H PRN Administration Pain Rated 7-10 Ondansetron HCl 4 mg 06/12/24 20:39 Ondansetron Inj 4 Mg/2 Ml Vial IV PUSH Q4H PRN Nausea Ondansetron HCl 4 mg 06/13/24 13:08 Ondansetron Inj 4 Mg/2 Ml Vial IV PUSH ONCE PRN Nausea Polyethylene Glycol 17 gm 06/14/24 09:00 Polyethylene Glycol 3350 17 Gm Powd.Pack PO QAM [facility] Prochlorperazine Edisylate 10 mg 06/12/24 23:19 Prochlorperazine Edisylate 10 Mg/2 Ml Vial IV PUSH Q6H PRN Nausea And Vomiting Senna/Docusate Sodium 2 tab 06/13/24 17:00 06/13/24 16:14 Senna/Docusate Sodium Tablet PO Not Given BID [facility] Radiology Results: ITS Impressions Ankle X-Ray 06/12/24 17:02 IMPRESSION: Trimalleolar fracture within the right ankle, as detailed above. Labs Labs: Laboratory Results - last 24 hr 06/14/24 05:24 WBC 11.0 H RBC 3.79 L Hgb 11.5 L Hct 34.7 L MCV 91.6 MCH 30.3 MCHC 33.1 RDW 14.3 Plt Count 198 MPV 9.1 Immature Gran % (Auto) 0.4 Neut % (Auto) 61.3 Lymph % (Auto) 29.9 Stanton % (Auto) 7.7 Eos % (Auto) 0.5 Baso % (Auto) 0.2 Lymph # (Auto) 3.28 H Stanton # (Auto) 0.8 H Eos # (Auto) 0.1 Baso # (Auto) 0.0 Abs Immat Gran (auto) 0.04 H Absolute Neuts (auto) 6.7 Absolute Nucleated RBC 0.000 Nucleated RBC % 0.0 Sodium 138 Potassium 3.7 Chloride 102 Carbon Dioxide 28 Anion Gap 8 BUN 14 Creatinine 0.80 Estim Creat Clear Calc 66 Estimated GFR > 60 Glucose 122 H Calcium 9.0 Total Bilirubin 0.7 AST 18 ALT 12 Alkaline Phosphatase 84 Total Protein 7.0 Albumin 3.6 Quality VTE Prophylaxis VTE prophylaxis: pharmacologic ordered
[2024-06-14] MEDS: HEPARIN SODIUM 5,000 UNITS/ML VIAL 5000 UNITS SUB-Q (09:26)
[2024-06-14] MEDS: ASPIRIN 325 MG ENTERIC TABLET PO (09:27)
[2024-06-14] MEDS: SENNA/DOCUSATE SODIUM TABLET 2 TAB PO (09:28)
[2024-06-14] MEDS: HYDROcodone/acetaminophen (*CRX) 5-325 MG TABLET 1 TAB PO ×2 (09:31→13:04)
[2024-06-14] MEDS: amLODIPine BESYLATE 10 MG TABLET PO (09:31)
[2024-06-14 12:00] VITALS: BP 172/79; PULSE 76; RESP 18; TEMP 36.7; O2SAT 98
--- NOTE | 2024-06-14 12:27 | P.DS_ITS ---
DS: Admitting Diagnosis Discharge Date 06/14/24 Admitting Diagnosis Trimalleolar fracture right ankle DS: Discharge Diagnosis Discharge Diagnosis (1) Closed trimalleolar fracture of ankle: Qualifiers: Encounter type: initial encounter Laterality: right Qualified Code(s): S82.851A - Displaced trimalleolar fracture of right lower leg, initial encounter for closed fracture Code(s): S82.853A - Displaced trimalleolar fracture of unspecified lower leg, initial encounter for closed fracture Status: Acute Assessment and Plan: 06/13/24: * Orthopedics has consulted. * ORIF recommended. * Awaiting OR. * NPO * Post-operative DVT prophylaxis per Orthopedics. * PT/OT eval after surgery per Ortho. * PRN Pain control * Fall precautions 06/14/24: * Post-op Day #1 of ORIF to right ankle by Dr. Wagner * PT eval today went well. Pt OK to discharge to home. * Continue pain control meds. * Aspirin 325 mg daily at home for 30 days for anticoagulation. * Complete Ancef for a total of 3 doses per Ortho. * NWB right ankle. * Follow up with Ortho in 4 weeks. (2) Ground-level fall: Code(s): W18.30XA - Fall on same level, unspecified, initial encounter Status: Acute Assessment and Plan: 06/13/24: * Mechanical. Resulting in Trimalleolar fracture * Fall precautions 06/14/24: * Continue NWB status with walker. (3) Hypertension: Qualifiers: Hypertension type: unspecified Qualified Code(s): I10 - Essential (primary) hypertension Code(s): I10 - Essential (primary) hypertension Status: Acute Assessment and Plan: 06/13/24: * BP elevated since presentation to ER. * Pt used to take Metoprolol for her MVP, but it was stopped on her own accord. * Will initiate BP coverage with Norvasc 5 mg daily and suggest titration as needed. * Continue to monitor and trend BP. 06/14/24: * BP remains elevated, but more stable than yesterday. * Adjust dose of Norvasc today to 10 mg. * Prescribed for home. DS: Summary Hospital Course Reason for hospitalization: Trimalleolar fracture right ankle. Hospital Course: This 68 year old female pt with PMH of HTN and MVP presented to the ER and was subsequently admitted on 06/12/24 after she slipped on some ice and fell, breaking her right ankle causing a Tri-malleolar fracture. She was admitted to the hospital and on 06/13/24 underwent an ORIF by Dr. Wagner. She has had a favorable post-operative period and has been cleared to continue NWB status at home with a walker and follow up with Dr. Wagner in approximately 4 weeks. She does have a hx of HTN and has been hypertensive while here. She has been started on Norvasc 10 mg daily for BP control. She will be referred back to her PCP for follow up of BP. Pt stable for discharge at this time. Status at Discharge Cognitive/behavioral status at discharge: At baseline Functional status at discharge: uses cane/walker Overall status at discharge: patient is progressing back to baseline Time Spent with Patient Time attestation: Total time spent providing and/or coordinating discharge services: Time spent: Greater than 30 minutes Specific discharge activities: follow up, medications, Weight bearing status Exam Const: General: comfortable and no acute distress Eyes: General: appearance normal, both eyes and all related structures Neck: Neck: supple and no JVD Resp: Effort & Inspection: normal respiratory effort Auscultation: clear to auscultation bilaterally Cardio: Rate: regular rate Rhythm: regular rhythm Heart sounds: no gallops, no murmurs and no rubs GI: Inspection: non-distended Auscultation: normal bowel sounds Skin: General skin exam: normal color, no rashes or lesions noted and no erythema Wounds: no wounds Neuro: General: No gait normal Speech: normal speech Other: Gait unable to be tested due to injury. Non-focal exam findings. Extrem: General: normal exam except as noted Other: Right ankle with splint in place secondary to acute fracture. Pt has intact sensation in toes and can move them. Psych: Mental Status: mental status grossly normal DS: Data Data Completed and Pending Completed studies during hospitalization: ITS Impressions Ankle X-Ray 06/12/24 17:02 IMPRESSION: Trimalleolar fracture within the right ankle, as detailed above. Labs on day of discharge: Labs from last 24 hours 06/14/24 05:24 WBC 11.0 H RBC 3.79 L Hgb 11.5 L Hct 34.7 L MCV 91.6 MCH 30.3 MCHC 33.1 RDW 14.3 Plt Count 198 MPV 9.1 Immature Gran % (Auto) 0.4 Neut % (Auto) 61.3 Lymph % (Auto) 29.9 Scurry % (Auto) 7.7 Eos % (Auto) 0.5 Baso % (Auto) 0.2 Lymph # (Auto) 3.28 H Scurry # (Auto) 0.8 H Eos # (Auto) 0.1 Baso # (Auto) 0.0 Abs Immat Gran (auto) 0.04 H Absolute Neuts (auto) 6.7 Absolute Nucleated RBC 0.000 Nucleated RBC % 0.0 Sodium 138 Potassium 3.7 Chloride 102 Carbon Dioxide 28 Anion Gap 8 BUN 14 Creatinine 0.80 Estim Creat Clear Calc 66 Estimated GFR > 60 Glucose 122 H Calcium 9.0 Total Bilirubin 0.7 AST 18 ALT 12 Alkaline Phosphatase 84 Total Protein 7.0 Albumin 3.6 Discharge Plan Discharge Attending physician on discharge: Cele Cotter Consulting providers: Umberto Wagner Discharging Clinician: Cele Cotter Anticipated Discharge Date/Time: 06/14/24 12:34 Patient Disposition: Home, Self-Care Activity: no driving, follow weight bearing status and other - see discharge instructions Diet: heart healthy Discharge Instructions: You must remain NON-WEIGHT BEARING TO THE RIGHT FOOT AT ALL TIMES UNTIL FOLLOW UP WITH ORTHOPEDICS. Please obtain and USE A WALKER FOR ANY AMBULATION, MAKING SURE NOT TO PUT WEIGHT ON THE RIGHT FOOT. Take medications as ordered. Follow up with both your PCP as you are being started on BP medication and also with Dr. Wagner as noted below. NO DRIVING. Patient Language: Maltese Stand Alone Forms: General Discharge Information Follow-up/Referrals: Umberto Wagner MD [Physician] - Call for Appointment AkuaFelicitas, JOSÉ [Primary Care Provider] - Call for Appointment Discharge Medications: New hydrocodone-acetaminophen 5-325 mg Tablet 1 tablet PO Q4H PRN (Reason: Pain Rated 4-6) Qty: 20 0RF aspirin 325 mg Tablet,Delayed Release (Dr/Ec) 325 mg PO Q12HR Qty: 60 0RF amlodipine 10 mg Tablet 10 mg PO DAILY Qty: 30 0RF Date of admission: 06/13/24 16:35 Primary Care Provider: AkuaFelicitas Admitting Provider: Shaq Persaud Attending physician on admission: Cele Cotter Condition: Stable Quality VTE Prophylaxis VTE prophylaxis: pharmacologic ordered Hospitalist MIPS Heart Failure (Exclusion) Patient has history of Heart Transplant or Left Ventricular Assistive Device?: No IF YES, STOP HERE Heart Failure (Qualifier) Patient has current or prior documentation of LVEF less than or equal to 40%, or mod/servere depressed LVSF?: No IF NO, STOP HERE
== END 2024-06-14 13:48 | disposition home or self-care (01) | DRG 494 ==
LOC: ANHED 20:46 → ANH2MED 21:38
PROVIDERS: Orthopaedic Surgery; Admitting Provider Internal Medicine; Emergency Provider Student in an Organized Health Care Education/Training Program; Visit Provider Nurse Practitioner Adult Health
PROC: 0QSG04Z Reposition Right Tibia with Internal Fixation Device, Open Approach (ICD-10-PCS; principal; 2024-06-13 13:00)
DX: S82.851A Displaced trimalleolar fracture of right lower leg, initial encounter for closed fracture (principal); I10 Essential (primary) hypertension; I34.1 Nonrheumatic mitral (valve) prolapse; W19.XXXA Unspecified fall, initial encounter
CPT/HCPCS: 36415; 73610; 80053; 85025; 85610; 85730; 86850; 86900; 86901; 93005; 96374; 96375; 97116; 97161; 97165; 97530; 97535; 99199; 99285; A9270; C1713; C1769; G0378; J0690; J1644; J2250; J2270; J2704; J3010; J7030; J7120; L2116

== ENCOUNTER 2024-07-28 14:20 | Outpatient (CLI) | payer MEDICARE, SELFPAY ==
--- NOTE | ~2024-07-28 | US_ITS ---
EXAMINATION: US venous doppler LE RT DATE: 07/28/2024 15:16 INDICATION: Right lower limb pain and swelling TECHNIQUE: Grayscale ultrasound images without and with compression and Doppler ultrasound images of the right lower extremity veins were obtained. COMPARISON: None. FINDINGS: The visualized portions of right common femoral vein, profunda (deep) femoral vein, femoral vein, pop liteal vein, posterior tibial veins, peroneal veins, gastrocnemius vein and proximal to mid greater s aphenous vein are patent. At the region of concern at the medial aspect of the right ankle there is p rominent peripheral atherosclerosis and minimal amount of central arterial flow with peak systolic ve locity of 3-4 cm/s) is likely the right posterior tibial artery. IMPRESSION: 1. No deep venous thrombosis in the right lower limb. 2. Minimal amount of cerebral arterial flow within what is likely the distal right posterior tibial a rtery suggesting a hemodynamically significant stenosis. Reviewed, dictated and finalized at location B. IMPRESSION: 1. No deep venous thrombosis in the right lower limb. 2. Minimal amount of cerebral arterial flow within what is likely the distal ri ght posterior tibial artery suggesting a hemodynamically significant stenosis.
--- OUTSIDE RECORDS SUMMARY | 2024-07-28 14:59 | XMS_ITS | Clinical Summary ---
Author Organization [facility] Address [address] [place] [address] Care Team Providers Care Satellite Technician Name Role Phone Daniella Rodriguez MD Primary Care Provider [phone] Source Comments [facility],non-owned Affiliates and Associated Physician Practices is amultiple site organization consisting of ambulatory clinics and hospital sitesin [place], [place], [place] and [place]. This disclosure is being madepursuant to the Care Everywhere program and may not contain all information available regarding this patient. Last updated 18.[facility] [employer] Allergies Active Allergy Reactions Criticality Noted Date [...] VACCINE (1 - 2023-2 5 season) 2023 DEPRESSION SCREENING 04/20/2024 INFLUENZA VACCINE (Season Ended) 2024 Respiratory Syncytial Virus (RSV) Vaccine Pt: or [...] to complete this topic MENINGOCOCCAL (Group B) VACC INE SHARED DECISION-MAKING Aged Out No longer eligibl e based on patient's age to complete this topic MENINGOCOCCAL GROUPS A/C/Y/W VACCINE Aged Out No longer eligible b ased [...] 4:28 AM 12/23/2018 10:45 AM Care Teams Satellite Technician Relationship Specialty Start Date End Date Daniella Rodriguez MD [address] [place] [address] PCP - General Family Medicine 11/19/16
--- OUTSIDE RECORDS SUMMARY | 2024-07-28 14:59 | XMS_ITS | Continuity of Care Document ---
Author Organization [facility] Address [id number] [place] [address] [address] [place] [address] Phone Care Team Providers Care Cloud Administrator Name Role Phone Jillian Jack Unavailable Unavailable Advance Directives Directive Yes / No Effective Date File Name No Information Encounters Encounter Description Practice Location Reason(s) For Visit Diagnoses Date Provider Providers Copied on Encounter [facility], [address], [place], [place], [id number], [place] tel:[phone] [address] [facility] No Information Leon[id number] Marcie Walsh. [address] , [address], [place], [address], [place]. tel:[phone] Family History Family Member Type Diagnosis Age At Onset No Information Payers Payer name Insurance type Covered green party ID Authoriza tion(s) No Information Social History [...]
--- OUTSIDE RECORDS SUMMARY | 2024-07-28 15:00 | XMS_ITS | Data Portability ---
Author Organization [place] [email or web address], Main Office Address [address] [place] [address] Assessment Encounter Date Assessment Date Assessment LastModified by Organization Details LastModified Time 09/03/2022 09/03/2022 ?reaction to IV dye vs cipro/metro plan to premedicate ok to stay off abx for now [email or web address] Not available 09/03/2022 14:52:03 11/14/2022 11/14/2022 I have reconciled the patient's medications post their discharge from inpatient facility. [email or web address] Not available 11/14/2022 09:09:17 Plan of Treatment Reminders Order Date Submit Date Provider Last Modified By Organization Details Last Modified Time Details Appointments Follow Up 15 2024 03:00P ZOË Angel Not available Not available Not available Lab lipid panel, serum [address] (Lab), [address] [place], [address], 07/01/2024 08:08:43 CMP, serum or plasma [address] (Lab), [address] [place], [address], 07/01/2024 08:08:43 glycohemo globin, total, blood [address] (Lab), [address] [place], [address], 07/01/2024 08:08:43 CBC w/ auto diff [address] (Lab), [address] [place], [address], 07/01/2024 08:08:42 TSH, serum or plasma 2024 025 [facility] (Lab), [address] [place], [address], 07/01/2024 08:08:43 unlisted lab - shield blood-bas ed colorecta l cancer screening 2024 025 [facility], [address] , [place], [address], 06/24/2024 15:12:57 glycohemo globin, total, blood 2022 023 [email or web address] Not available 03/26/2023 16:46:30 BMP, serum or plasma 2022 023 [email or web address] Not available 03/26/2023 16:48:59 iron + total iron-bind ing capacity (TIBC), serum 2022 023 [email or web address] Not available 03/26/2023 16:49:26 ferritin, serum or plasma 2022 023 [email or web address] Not available 03/26/2023 16:49:47 PT/PTT, plasma 2022 023 [email or web address] Not available 03/26/2023 16:50:13 CBC w/ auto diff 2022 023 [email or web address] Not available 03/26/2023 16:50:39 vitamin B12, serum 2022 023 [email or web address] Not available 03/26/2023 16:50:57 folate, serum 2022 023 [email or web address] Not available 03/26/2023 16:51:24 ferritin, serum or plasma [address] (Lab), [address] [place], [address], 10/16/2022 15:00:12 vitamin B12, serum [address] (Lab), [address] [place], [address], 10/16/2022 15:00:29 TSH, serum or plasma [address] (Lab), [address] [place], [address], 10/16/2022 15:01:46 iron + total iron-bind ing capacity (TIBC), serum [address] (Lab), [address] [place], [address], 10/16/2022 15:00:59 vitamin B12, serum [address] (Lab), [address] [place], [address], 10/16/2022 15:01:33 folate, serum [address] (Lab), [address] [place], [address], 10/16/2022 15:03:35 glycohemo globin, total, blood [address] (Lab), [address] [place], [address], 10/16/2022 14:58:52 BMP, serum or plasma [address] (Lab), [address] [place], [address], 10/16/2022 14:59:29 CBC w/ auto diff 2022 023 [email or web address] Not available 09/03/2022 15:21:43 PT/PTT, plasma 2022 023 [email or web address] Not available 09/03/2022 15:39:03 CMP, serum or plasma 2022 023 [email or web address] Not available 09/03/2022 15:39:22 Referral None recorded. Procedures None recorded. Surgeries None recorded. Imaging US, pelvis, transabdo joel + transvagi nal - f/u enlarged left ovary seen on CT 08/29/222022 023 [email or web address] 56 [facility] Patient Access Centralized Scheduling, Centralized Scheduling, [address] [facility] , [place], [address], 09/11/2022 08:33:46 Medication Orders hydroxyzi ne pamoate 50 mg capsule 2022 023 [facility], [address] [facility] [facility] , [place], [address], 06/24/2024 11:01:19 Patient TargetsNo targets recorded. Patient Instructions Encounter Date Encounter Id Patient Instructions Last Modified By Organization Details Last Modified Time 11/14/2022 [id number] Thank you for your visit to our office today. We would like to request that you reach out to your referring or previous provider and request that they send us a Summary of Care in electronic form, so that we may have it on file in your medical record. At your visit, we had the medical records we needed to provide you with the best possible care; however, for insurance purposes, an electronic Summary of Care is beneficial. Thank you for your assistance in obtaining this information and we look forward to providing continued care to you. Please review your medication list from the Summary of Care for this visit. If there are any differences from what you are currently taking at home, please call us to discuss. [email or web address] Not available 11/14/2022 09:09:17 Homebound Status : {{Patient has an inability to leave the home without a taxing effort and assistance from another person Does not meet homebound status}} Required Home Health Services: {{none [facility], physical therapy, occupational therapy [facility], physical therapy [facility]}} Durable Medical Equipment needed: {{cane walker wal ker with seat manual wheelchair bedsid e commode oxygen}} Billing Guidelines CPT code 87563- Transitional Care Management services with moderate medical decision complexity (syiw-ti-fzha visit within 14 days of discharge). CPT code 20080- Transitional Care Management services with high medical decision complexity (dwgw-sl-qhkg visit within 7 days of discharge). [email or web address] Not available 11/14/2022 09:09:17 Reason for Referral None Reported. Results Created Date Observation Date Name Description Value Unit Range Abnormal Flag Note LastModifiedBy Organization Detail LastModifiedTime 09/04/1909/03/2022 CBC/C OMPLE TE BLD COUNT W/DIF F white blood cells 9.7 x10'3 /uL 4.2-10 .8 Not Available [facility] (Lab) [address] [place], [address], 09/03/2022 19:00:39 09/04/19 23 09/03/2022 CBC/C OMPLE TE BLD COUNT W/DIF F red blood cells 4.15 x10'6 /uL 3.80-5 .20 Not Available [facility] (Lab) [address] [place], [address], 09/03/2022 19:00:39 09/04/19 23 09/03/2022 CBC/C OMPLE TE BLD COUNT W/DIF F hemoglobin 13.0 g/dL 12.0-1 5.6 Not Available [facility] (Lab) [address] [place], [address], 09/03/2022 19:00:39 09/04/19 23 09/03/2022 CBC/C OMPLE TE BLD COUNT W/DIF F hematocrit 40.4 % 35.7-4 5.7 Not Available [facility] (Lab) [address] [place], [address], 09/03/2022 19:00:39 09/04/19 23 09/03/2022 CBC/C OMPLE TE BLD COUNT W/DIF F mean red cell volume 97.3 fL 82.0-9 9.0 Not Available [facility] (Lab) [address] [place], [address], 09/03/2022 19:00:39 09/04/19 23 09/03/2022 CBC/C OMPLE TE BLD COUNT W/DIF F mean red cell hemoglobin 31.3 pg 27.0-3 3.0 Not Available [facility] (Lab) [address] [place], [address], 09/03/2022 19:00:39 09/04/19 23 09/03/2022 CBC/C OMPLE TE BLD COUNT W/DIF F mean RBC HGB concentratio n 32.2 g/dL 31.0-3 6.0 Not Available [facility] (Lab) [address] [place], [address], 09/03/2022 19:00:39 09/04/19 23 09/03/2022 CBC/C OMPLE TE BLD COUNT W/DIF F red cell distribution width 13.3 % 11.8-1 5.5 Not Available [facility] (Lab) [address] [place], [address], 09/03/2022 19:00:39 09/04/19 23 09/03/2022 CBC/C OMPLE TE BLD COUNT W/DIF F platelets 356 x10'3 /uL 150-40 0 Not Available [facility] (Lab) [address] [place], [address], 09/03/2022 19:00:39 09/04/19 23 09/03/2022 CBC/C OMPLE TE BLD COUNT W/DIF F mean platelet volume 9.4 fL 9.0-12 .4 Not Available [facility] (Lab) [address] [place], [address], 09/03/2022 19:00:39 09/04/19 23 09/03/2022 CBC/C OMPLE TE BLD COUNT W/DIF F neutrophils 68.5 % 39.0-7 2.0 Not Available [facility] (Lab) [address] [place], [address], 09/03/2022 19:00:39 09/04/19 23 09/03/2022 CBC/C OMPLE TE BLD COUNT W/DIF F lymphocytes 25.5 % 16.0-4 7.0 Not Available [facility] (Lab) [address] [place], [address], 09/03/2022 19:00:39 09/04/19 23 09/03/2022 CBC/C OMPLE TE BLD COUNT W/DIF F monocytes 4.6 % 5.0-12 .0 low Not Available [facility] (Lab) [address] [place], [address], 09/03/2022 19:00:39 09/04/19 23 09/03/2022 CBC/C OMPLE TE BLD COUNT W/DIF F eosinophils 0.6 % 1.0-7. 0 low Not Available [facility] (Lab) [address] [place], [address], 09/03/2022 19:00:39 09/04/19 23 09/03/2022 CBC/C OMPLE TE BLD COUNT W/DIF F basophils 0.3 % 0.0-2. 0 Not Available [facility] (Lab) [address] [place], [address], 09/03/2022 19:00:39 09/04/19 23 09/03/2022 CBC/C OMPLE TE BLD COUNT W/DIF F immature granulocytes 0.5 % 0.00-0 .50 Not Available [facility] (Lab) [address] [place], [address], 09/03/2022 19:00:39 09/04/19 23 09/03/2022 CBC/C OMPLE TE BLD COUNT W/DIF F neutrophils, absolute count 6.62 x10'3 /uL 1.5-8. 0 Not Available [facility] (Lab) [address] [place], [address], 09/03/2022 19:00:39 09/04/19 23 09/03/2022 CBC/C OMPLE TE BLD COUNT W/DIF F lymphocytes, absolute count 2.47 x10'3 /uL 1.07-3 .43 Not Available [facility] (Lab) [address] [place], [address], 09/03/2022 19:00:39 09/04/19 23 09/03/2022 CBC/C OMPLE TE BLD COUNT W/DIF F monocytes, absolute count 0.44 x10'3 /uL 0.29-0 .99 Not Available [facility] (Lab) [address] [place], [address], 09/03/2022 19:00:39 09/04/19 23 09/03/2022 CBC/C OMPLE TE BLD COUNT W/DIF F eosinophils, absolute count 0.06 x10'3 /uL 0.02-0 .53 Not Available [facility] (Lab) [address] [place], [address], 09/03/2022 19:00:39 09/04/19 23 09/03/2022 CBC/C OMPLE TE BLD COUNT W/DIF F basophils, absolute count 0.03 x10'3 /uL 0.01-0 .08 Not Available [facility] (Lab) [address] [place], [address], 09/03/2022 19:00:39 09/04/19 23 09/03/2022 CBC/C OMPLE TE BLD COUNT W/DIF F immature granulocytes ,absolute 0.05 x10'3 /uL 0.00-0 .05 Not Available [facility] (Lab) [address] [place], [address], 09/03/2022 19:00:39 09/04/19 23 09/03/2022 CBC/C OMPLE TE BLD COUNT W/DIF F nucleated red blood cells 0.0 % -0 Not Available [facility] (Lab) [address] [place], [address], 09/03/2022 19:00:39 09/04/19 23 09/03/2022 CBC/C OMPLE TE BLD COUNT W/DIF F NRBC# 0.00 x10'3 /uL Not Available [facility] (Lab) [address] [place], [address], 09/03/2022 19:00:39 09/04/19 23 09/03/2022 PROTI ME W/INR protime 10.3 secon ds 9.5-11 .5 Not Available [facility] (Lab) [address] [place], [address], 09/03/2022 19:09:40 09/04/19 23 09/03/2022 PROTI ME W/INR INR 1.0 INR INDIC ATION S 2.0 - 3.0 PROPH YLAXI S: VENOU S THROM BOSIS (HIGH RISK SURGE RY) AND SYSTE LAUREN EMBOL ISM (TISS UE HEART VALVE S, AMI VALVU LAR HEART DISEA SE AND ATRIA L FIBRI LLATI ON). TREAT MENT: VENOU S THROM BOSIS AND PULMO NARY EMBOL ISM BILEA FLET MECHA NICAL VALVE S IN AORTI C POSIT ION. 2.5 - 3.5 MECHA NICAL PROST HETIC HEART VALVE S (TILT ING DISK VALVE S AND BILEA FLET MECHA NICAL VALVE S IN IRA L POSIT ION). 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 ANTIP HOSPH OLIPI D SYNDR OME. Not Available [facility] (Lab) [address] [place], [address], 09/03/2022 19:09:40 09/04/19 23 09/03/2022 APTT APTT 23.3 secon ds 23.4-3 1.4 low PLEAS E NOTE NEW APTT REFER ENCE RANGE EFFEC TIVE 04/07 . Not Available [facility] (Lab) [address] [place], [address], 09/03/2022 19:09:46 09/04/19 23 09/03/2022 COMPR EHENS BORIS METAB OLIC PANEL sodium 140 mmol/ L 137-14 5 Not Available [facility] (Lab) [address] [place], [address], 09/03/2022 19:17:20 09/04/19 23 09/03/2022 COMPR EHENS BORIS METAB OLIC PANEL potassium 3.5 mmol/ L 3.5-5. 1 Not Available [facility] (Lab) [address] [place], [address], 09/03/2022 19:17:20 09/04/19 23 09/03/2022 COMPR EHENS BORIS METAB OLIC PANEL chloride 101 mmol/ L 98-107 Not Available [facility] (Lab) [address] [place], [address], 09/03/2022 19:17:20 09/04/19 23 09/03/2022 COMPR EHENS BORIS METAB OLIC PANEL carbon dioxide 33 mmol/ L 22-30 high Not Available [facility] (Lab) [address] [place], [address], 09/03/2022 19:17:20 09/04/19 23 09/03/2022 COMPR EHENS BORIS METAB OLIC PANEL anion gap 9.5 mmol/ L 14-22 low Not Available [facility] (Lab) [address] [place], [address], 09/03/2022 19:17:20 09/04/19 23 09/03/2022 COMPR EHENS BORIS METAB OLIC PANEL glucose 108 mg/dL 70-99 high Not Available [facility] (Lab) [address] [place], [address], 09/03/2022 19:17:20 09/04/19 23 09/03/2022 COMPR EHENS BORIS METAB OLIC PANEL BUN 7 mg/dL 8-19 low Not Available [facility] (Lab) [address] [place], [address], 09/03/2022 19:17:20 09/04/19 23 09/03/2022 COMPR EHENS BORIS METAB OLIC PANEL creatinine 0.61 mg/dL 0.66-1 .25 low Not Available [facility] (Lab) [address] [place], [address], 09/03/2022 19:17:20 09/04/19 23 09/03/2022 COMPR EHENS BORIS METAB OLIC PANEL GFR >60 Refer ence Range : [place] ge GFR Healt hy Adult : >60 mL/mi n/1.7 3 m2 Chron ic Kidne y Disea se: 15-60 mL/mi n/1.7 3 m2 Kidne y Failu re: <15/m L/min /1.73 m2 www.n iddk. nih.g ov The MDRD study equat ion has not been valid ated in child marshall <18 years of age; pregn ant women ; the elder ly >85 years of age; or in some racia l or ethni c subgr oups, such as Hispa nics. Outsi de the valid ated breanne eters , estim ated GFR is less accur ate, requi ring clini shivam judgm ent on a case- by-ca se basis . Clini shviam inter preta tion for other races and ages must be made by the clini bran. The MDRD study equat ion has not been valid ated for the evalu ation of serum creat inine relat ed to nutri jensen l statu s or medic ation usage . For perso ns <18 years of age, a pedia tric GFR calcu lator is avail able on the [facility] websi te: https ://shlomo w.kid jossie.o rg/pr ofess ional s/kdo qi/gf r_cal culat or Not Available [facility] (Lab) [address] [place], [address], 09/03/2022 19:17:20 09/04/1909/03/2022 COMPR EHENS BORIS METAB OLIC PANEL alkaline phosphatase 55 U/L 38-126 Not Available [facility] (Lab) [address] [place], [address], 09/03/2022 19:17:20 09/04/19 23 09/03/2022 COMPR EHENS BORIS METAB OLIC PANEL alanine aminotransfe rase 15 U/L 0-35 Not Available [facility] (Lab) [address] [place], [address], 09/03/2022 19:17:20 09/04/19 23 09/03/2022 COMPR EHENS BORIS METAB OLIC PANEL aspartate aminotransfe rase 23 U/L 15-37 Not Available [facility] (Lab) [address] [place], [address], 09/03/2022 19:17:20 09/04/19 23 09/03/2022 COMPR EHENS BORIS METAB OLIC PANEL bilirubin, total 0.50 mg/dL 0.20-1 .30 Not Available [facility] (Lab) [address] [place], [address], 09/03/2022 19:17:20 09/04/19 23 09/03/2022 COMPR EHENS BORIS METAB OLIC PANEL calcium 9.2 mg/dL 8.4-10 .2 Not Available [facility] (Lab) [address] [place], [address], 09/03/2022 19:17:20 09/04/19 23 09/03/2022 COMPR EHENS BORIS METAB OLIC PANEL total protein 6.3 g/dL 6.3-8. 2 Not Available [facility] (Lab) [address] [place], [address], 09/03/2022 19:17:20 09/04/19 23 09/03/2022 COMPR EHENS BORIS METAB OLIC PANEL albumin 3.2 g/dL 3.0-4. 4 Not Available [facility] (Lab) [address] [place], [address], 09/03/2022 19:17:20 09/04/19 23 09/03/2022 COMPR EHENS BORIS METAB OLIC PANEL globulin 3.1 g/dL 2.6-4. 2 Not Available [facility] (Lab) [address] [place], [address], 09/03/2022 19:17:20 09/04/19 23 09/03/2022 COMPR EHENS BORIS METAB OLIC PANEL A/G ratio 1.0 ratio 1.0-2. 0 Not Available [facility] (Lab) [address] [place], [address], 09/03/2022 19:17:20 10/17/19 23 10/16/2022 IRON/ TIBC PANEL total iron binding capacity 315 mcg/d L 265-47 5 Not Available [facility] (Lab) [address] [place], [address], 10/16/2022 21:28:38 10/17/19 23 10/16/2022 IRON/ TIBC PANEL % transferrin saturation 34 % 20-55 Not Available [facility] (Lab) [address] [place], [address], 10/16/2022 21:28:38 10/17/19 23 10/16/2022 IRON/ TIBC PANEL unsaturated iron bind capacity 208 mcg/d L 126-38 2 Not Available [facility] (Lab) [address] [place], [address], 10/16/2022 21:28:38 10/17/19 23 10/16/2022 IRON/ TIBC PANEL iron 107 mcg/d L 42-175 Not Available [facility] (Lab) [address] [place], [address], 10/16/2022 21:28:38 10/17/19 23 10/16/2022 BASIC METAB OLIC PANEL sodium 142 mmol/ L 137-14 5 Not Available [facility] (Lab) [address] [place], [address], 10/16/2022 21:29:58 10/17/19 23 10/16/2022 BASIC METAB OLIC PANEL potassium 4.0 mmol/ L 3.5-5. 1 Not Available [facility] (Lab) [address] [place], [address], 10/16/2022 21:29:58 10/17/19 23 10/16/2022 BASIC METAB OLIC PANEL chloride 104 mmol/ L 98-107 Not Available [facility] (Lab) [address] [place], [address], 10/16/2022 21:29:58 10/17/19 23 10/16/2022 BASIC METAB OLIC PANEL carbon dioxide 23 mmol/ L 22-30 Not Available [facility] (Lab) [address] [place], [address], 10/16/2022 21:29:58 10/17/19 23 10/16/2022 BASIC METAB OLIC PANEL anion gap 19.0 mmol/ L 14-22 Not Available [facility] (Lab) [address] [place], [address], 10/16/2022 21:29:58 10/17/1910/16/2022 BASIC METAB OLIC PANEL glucose 141 mg/dL 70-99 high Not Available [facility] (Lab) [address] [place], [address], 10/16/2022 21:29:58 10/17/19 23 10/16/2022 BASIC METAB OLIC PANEL BUN 14 mg/dL 8-19 Not Available [facility] (Lab) [address] [place], [address], 10/16/2022 21:29:58 10/17/19 23 10/16/2022 BASIC METAB OLIC PANEL creatinine 0.63 mg/dL 0.66-1 .25 low Not Available [facility] (Lab) [address] [place], [address], 10/16/2022 21:29:58 10/17/19 23 10/16/2022 BASIC METAB OLIC PANEL GFR >60 Refer ence Range : [place] ge GFR Healt hy Adult : >60 mL/mi n/1.7 3 m2 Chron ic Kidne y Disea se: 15-60 mL/mi n/1.7 3 m2 Kidne y Failu re: <15/m L/min /1.73 m2 www.n iddk. nih.g ov The MDRD study equat ion has not been valid ated in child marshall <18 years of age; pregn ant women ; the elder ly >85 years of age; or in some racia l or ethni c subgr oups, such as Hispa nics. Outsi de the valid ated breanne eters , estim ated GFR is less accur ate, requi ring clini shivam judgm ent on a case- by-ca se basis . Clini shivam inter preta tion for other races and ages must be made by the clini bran. The MDRD study equat ion has not been valid ated for the evalu ation of serum creat inine relat ed to nutri jensen l statu s or medic ation usage . For perso ns <18 years of age, a pedia tric GFR calcu lator is avail able on the [facility] websi te: https ://shlomo sethi.madonna crooks/pr dharaess ional s/kdo qi/gf r_cal culat or Not Available [facility] (Lab) [address] [place], [address], 10/16/2022 21:29:58 10/17/19 23 10/16/2022 BASIC METAB OLIC PANEL calcium 9.8 mg/dL 8.4-10 .2 Not Available [facility] (Lab) [address] [place], [address], 10/16/2022 21:29:58 10/17/19 23 10/16/2022 TSH thyroid-stim ulating hormone 0.796 uIU/m L 0.465- 4.680 Not Available [facility] (Lab) [address] [place], [address], 10/16/2022 21:45:44 10/17/19 23 10/16/2022 JAH TIN ferritin 189 NG/mL 11.1-2 64 Not Available [facility] (Lab) [address] [place], [address], 10/16/2022 21:45:59 10/17/19 23 10/16/2022 HEMOG LOBIN A1C HA1C 6.4 % 4.0-6. 0 high Diabe shanice Scree tomás Crite kathi: <5.7% Consi stent with absen ce of diabe shanice 5.7-6 .4% Consi stent with incre ased risk for diabe shanice (pred iabet es) >OR=6 .5% Consi stent with diabe shanice REFER ENCE: Diabe shanice Care 2016, 39(Queen ppl.1 ):s13 -s22 Not Available [facility] (Lab) [address] [place], [address], 10/16/2022 21:50:23 10/17/19 23 10/16/2022 VITAM IN B12 (SUZANNE NELY ) vb12 316 pg/mL 239-93 1 Not Available [facility] (Lab) [address] [place], [address], 10/16/2022 22:44:06 10/17/19 23 10/16/2022 FOLAT E, SERUM /PLAS MA folate 9.74 NG/mL 2.76-2 0.0 Not Available [facility] (Lab) [address] [place], [address], 10/16/2022 22:44:09 03/26/20 23 03/26/2023 CBC/C OMPLE TE BLD COUNT W/DIF F white blood cells 9.1 x10'3 /uL 4.2-10 .8 Not Available [facility] (Lab) [address] [place], [address], 03/26/2023 21:26:53 03/26/20 23 03/26/2023 CBC/C OMPLE TE BLD COUNT W/DIF F red blood cells 4.61 x10'6 /uL 3.80-5 .20 Not Available [facility] (Lab) [address] [place], [address], 03/26/2023 21:26:53 03/26/20 23 03/26/2023 CBC/C OMPLE TE BLD COUNT W/DIF F hemoglobin 14.7 g/dL 12.0-1 5.6 Not Available [facility] (Lab) [address] [place], [address], 03/26/2023 21:26:53 03/26/20 23 03/26/2023 CBC/C OMPLE TE BLD COUNT W/DIF F hematocrit 44.2 % 35.7-4 5.7 Not Available [facility] (Lab) [address] [place], [address], 03/26/2023 21:26:53 03/26/20 23 03/26/2023 CBC/C OMPLE TE BLD COUNT W/DIF F mean red cell volume 95.9 fL 82.0-9 9.0 Not Available [facility] (Lab) [address] [place], [address], 03/26/2023 21:26:53 03/26/20 23 03/26/2023 CBC/C OMPLE TE BLD COUNT W/DIF F mean red cell hemoglobin 31.9 pg 27.0-3 3.0 Not Available [facility] (Lab) [address] [place], [address], 03/26/2023 21:26:53 03/26/20 23 03/26/2023 CBC/C OMPLE TE BLD COUNT W/DIF F mean RBC HGB concentratio n 33.3 g/dL 31.0-3 6.0 Not Available [facility] (Lab) [address] [place], [address], 03/26/2023 21:26:53 03/26/20 23 03/26/2023 CBC/C OMPLE TE BLD COUNT W/DIF F red cell distribution width 13.2 % 11.8-1 5.5 Not Available [facility] (Lab) [address] [place], [address], 03/26/2023 21:26:53 03/26/20 23 03/26/2023 CBC/C OMPLE TE BLD COUNT W/DIF F platelets 229 x10'3 /uL 150-40 0 Not Available [facility] (Lab) [address] [place], [address], 03/26/2023 21:26:53 03/26/20 23 03/26/2023 CBC/C OMPLE TE BLD COUNT W/DIF F mean platelet volume 10.1 fL 9.0-12 .4 Not Available [facility] (Lab) [address] [place], [address], 03/26/2023 21:26:53 03/26/20 23 03/26/2023 CBC/C OMPLE TE BLD COUNT W/DIF F neutrophils 39.8 % 39.0-7 2.0 Not Available [facility] (Lab) [address] [place], [address], 03/26/2023 21:26:53 03/26/20 23 03/26/2023 CBC/C OMPLE TE BLD COUNT W/DIF F lymphocytes 50.7 % 16.0-4 7.0 high Not Available [facility] (Lab) [address] [place], [address], 03/26/2023 21:26:53 03/26/20 23 03/26/2023 CBC/C OMPLE TE BLD COUNT W/DIF F monocytes 7.4 % 5.0-12 .0 Not Available [facility] (Lab) [address] [place], [address], 03/26/2023 21:26:53 03/26/20 23 03/26/2023 CBC/C OMPLE TE BLD COUNT W/DIF F eosinophils 1.5 % 1.0-7. 0 Not Available [facility] (Lab) [address] [place], [address], 03/26/2023 21:26:53 03/26/20 23 03/26/2023 CBC/C OMPLE TE BLD COUNT W/DIF F basophils 0.4 % 0.0-2. 0 Not Available [facility] (Lab) [address] [place], [address], 03/26/2023 21:26:53 03/26/20 23 03/26/2023 CBC/C OMPLE TE BLD COUNT W/DIF F immature granulocytes 0.2 % 0.00-0 .50 Not Available [facility] (Lab) [address] [place], [address], 03/26/2023 21:26:53 03/26/20 23 03/26/2023 CBC/C OMPLE TE BLD COUNT W/DIF F neutrophils, absolute count 3.60 x10'3 /uL 1.5-8. 0 Not Available [facility] (Lab) [address] [place], [address], 03/26/2023 21:26:53 03/26/20 23 03/26/2023 CBC/C OMPLE TE BLD COUNT W/DIF F lymphocytes, absolute count 4.59 x10'3 /uL 1.07-3 .43 high Not Available [facility] (Lab) [address] [place], [address], 03/26/2023 21:26:53 03/26/20 23 03/26/2023 CBC/C OMPLE TE BLD COUNT W/DIF F monocytes, absolute count 0.67 x10'3 /uL 0.29-0 .99 Not Available [facility] (Lab) [address] [place], [address], 03/26/2023 21:26:53 03/26/20 23 03/26/2023 CBC/C OMPLE TE BLD COUNT W/DIF F eosinophils, absolute count 0.14 x10'3 /uL 0.02-0 .53 Not Available [facility] (Lab) [address] [place], [address], 03/26/2023 21:26:53 03/26/20 23 03/26/2023 CBC/C OMPLE TE BLD COUNT W/DIF F basophils, absolute count 0.04 x10'3 /uL 0.01-0 .08 Not Available [facility] (Lab) [address] [place], [address], 03/26/2023 21:26:53 03/26/20 23 03/26/2023 CBC/C OMPLE TE BLD COUNT W/DIF F immature granulocytes ,absolute 0.02 x10'3 /uL 0.00-0 .05 Not Available [facility] (Lab) [address] [place], [address], 03/26/2023 21:26:53 03/26/20 23 03/26/2023 CBC/C OMPLE TE BLD COUNT W/DIF F nucleated red blood cells 0.0 % -0 Not Available [facility] (Lab) [address] [place], [address], 03/26/2023 21:26:53 03/26/20 23 03/26/2023 CBC/C OMPLE TE BLD COUNT W/DIF F NRBC# 0.00 x10'3 /uL Not Available [facility] (Lab) [address] [place], [address], 03/26/2023 21:26:53 03/26/20 23 03/26/2023 APTT APTT 28.2 secon ds 23.4-3 4.4 Not Available [facility] (Lab) [address] [place], [address], 03/26/2023 21:32:11 03/26/20 23 03/26/2023 PROTI ME W/INR protime 10.4 secon ds 9.4-11 .9 Not Available [facility] (Lab) [address] [place], [address], 03/26/2023 21:32:17 03/26/20 23 03/26/2023 PROTI ME W/INR INR 1.0 INR INDIC ATION S 2.0 - 3.0 PROPH YLAXI S: VENOU S THROM BOSIS (HIGH RISK SURGE RY) AND SYSTE LAUREN EMBOL ISM (TISS UE HEART VALVE S, AMI VALVU LAR HEART DISEA SE AND ATRIA L FIBRI LLATI ON). TREAT MENT: VENOU S THROM BOSIS AND PULMO NARY EMBOL ISM BILEA FLET MECHA NICAL VALVE S IN AORTI C POSIT ION. 2.5 - 3.5 MECHA NICAL PROST HETIC HEART VALVE S (TILT ING DISK VALVE S AND BILEA FLET MECHA NICAL VALVE S IN IRA L POSIT ION). 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 ANTIP HOSPH OLIPI D SYNDR OME. Not Available [facility] (Lab) [address] [place], [address], 03/26/2023 21:32:17 03/26/20 23 03/26/2023 IRON/ TIBC PANEL total iron binding capacity 304 mcg/d L 265-47 5 Not Available [facility] (Lab) [address] [place], [address], 03/26/2023 22:27:08 03/26/20 23 03/26/2023 IRON/ TIBC PANEL % transferrin saturation 30 % 20-55 Not Available [facility] (Lab) [address] [place], [address], 03/26/2023 22:27:08 03/26/20 23 03/26/2023 IRON/ TIBC PANEL unsaturated iron bind capacity 213 mcg/d L 126-38 2 Not Available [facility] (Lab) [address] [place] [address], [address], 03/26/2023 22:27:08 03/26/20 23 03/26/2023 IRON/ TIBC PANEL iron 91 mcg/d L 42-175 Not Available [facility] (Lab) [address] [place], [address], 03/26/2023 22:27:08 03/26/20 23 03/26/2023 BASIC METAB OLIC PANEL sodium 140 mmol/ L 137-14 5 Not Available [facility] (Lab) [address] [place], [address], 03/26/2023 22:28:07 03/26/20 23 03/26/2023 BASIC METAB OLIC PANEL potassium 4.3 mmol/ L 3.5-5. 1 Not Available [facility] (Lab) [address] [place], [address], 03/26/2023 22:28:07 03/26/20 23 03/26/2023 BASIC METAB OLIC PANEL chloride 102 mmol/ L 98-107 Not Available [facility] (Lab) [address] [place], [address], 03/26/2023 22:28:07 03/26/20 23 03/26/2023 BASIC METAB OLIC PANEL carbon dioxide 28 mmol/ L 22-30 Not Available [facility] (Lab) [address] [place], [address], 03/26/2023 22:28:07 03/26/20 23 03/26/2023 BASIC METAB OLIC PANEL anion gap 14.3 mmol/ L 14-22 Not Available [facility] (Lab) [address] [place], [address], 03/26/2023 22:28:07 03/26/20 23 03/26/2023 BASIC METAB OLIC PANEL glucose 125 mg/dL 70-99 high Not Available [facility] (Lab) [address] [place], [address], 03/26/2023 22:28:07 03/26/20 23 03/26/2023 BASIC METAB OLIC PANEL BUN 10 mg/dL 8-19 Not Available [facility] (Lab) [address] [place], [address], 03/26/2023 22:28:07 03/26/20 23 03/26/2023 BASIC METAB OLIC PANEL creatinine 0.63 mg/dL 0.66-1 .25 low Not Available [facility] (Lab) [address] [place], [address], 03/26/2023 22:28:07 03/26/20 23 03/26/2023 BASIC METAB OLIC PANEL GFR >60 Refer ence Range : [place] ge GFR Healt hy Adult : >60 mL/mi n/1.7 3 m2 Chron ic Kidne y Disea se: 15-60 mL/mi n/1.7 3 m2 Kidne y Failu re: <15/m L/min /1.73 m2 www.n iddk. nih.g ov The MDRD study equat ion has not been valid ated in child marshall <18 years of age; pregn ant women ; the elder ly >85 years of age; or in some racia l or ethni c subgr oups, such as Hispa nics. Outsi de the valid ated breanne eters , estim ated GFR is less accur ate, requi ring clini shivam judgm ent on a case- by-ca se basis . Clini shivam inter preta tion for other races and ages must be made by the clini bran. The MDRD study equat ion has not been valid ated for the evalu ation of serum creat inine relat ed to nutri jensen l statu s or medic ation usage . For perso ns <18 years of age, a pedia tric GFR calcu lator is avail able on the [facility] websi te: https ://shlomo sethi.madonna crooks/merari price s/elsao qi/gf r_cal culat or Not Available [facility] (Lab) [address] [place], [address], 03/26/2023 22:28:07 03/26/20 23 03/26/2023 BASIC METAB OLIC PANEL calcium 10.2 mg/dL 8.4-10 .2 Not Available [facility] (Lab) [address] [place], [address], 03/26/2023 22:28:07 03/26/20 23 03/26/2023 HEMOG LOBIN A1C HA1C 6.8 % 4.0-6. 0 high Diabe shanice Scree tomás Crite kathi: <5.7% Consi stent with absen ce of diabe shanice 5.7-6 .4% Consi stent with incre ased risk for diabe shanice (pred iabet es) >OR=6 .5% Consi stent with diabe shanice REFER ENCE: Diabe shanice Care 2016, 39(Queen ppl.1 ):s13 -s22 Not Available [facility] (Lab) [address] [place], [address], 03/26/2023 22:49:00 03/26/20 23 03/26/2023 JAH TIN ferritin 165 NG/mL 11.1-2 64 Not Available [facility] (Lab) [address] [place], [address], 03/26/2023 22:51:17 03/26/20 23 03/26/2023 VITAM IN B12 (SUZANNE NELY ) vb12 281 pg/mL 239-93 1 Not Available [facility] (Lab) [address] [place], [address], 03/26/2023 22:59:57 03/26/20 23 03/26/2023 FOLAT E, SERUM /PLAS MA folate 11.3 NG/mL 2.76-2 0.0 Not Available [facility] (Lab) [address] [place], [address], 03/26/2023 23:00:13 06/25/19 25 06/24/2024 SHIEL D CRC crc The Shiel d Test is cover ed by Medic are. Non-M edica re patie nts may have an out of pocke t expen se of $1,49 5. Not Available [employer] [address], [place], [address], 06/24/2024 15:12:57 10/03/19 23 10/02/2022 US, pelvi s, trans abdom inal + trans vagin al No observ ation record ed. [email or web address] [facility] Central Scheduling [address] [place], [address], 10/16/2022 14:33:29 02/24/20 25 06/13/2024 XR, ankle No observ ation record ed. [facility] [address], [place], [address], 06/14/2024 09:41:39 Result Notes None recorded. Problems Name Problem SNOMED Code Status Onset Date Resolution Date Notes Provider Name and Address Organization Details Recorded Time Closed fracture of shaft of metacarpa l bone 88215736 Active Not Available [facility] 3 14:10:27 Fracture of forearm 76076064 Completed 06/24/2024 ZOË Gant [address], [address], [place], [address] , [employer] 5 11:23:47 Cyst of left ovary 89443098139 995524 Active 2022 Daniella Rodriguez MD [address], [address], [place], [address] , [employer] 3 14:44:10 Petechiae of skin 942199203 Active 2022 Daniella Rodriguez MD [address], [place], [address] , [employer] 3 14:45:52 Hyperglyc emia 84222814 Active 2022 Daniella Rodriguez MD [address], [place], [address] , [employer] 3 14:28:58 Loss of hair 999306779 Active 2022 Daniella Rodriguez MD [address], [place], [address] , [employer] 3 14:29:08 CT of abdomen abnormal 75319379931 808550 Active 2022 Daniella Rodriguez MD [address], [place], [address] , [employer] 3 14:32:54 Kidney stone 45184585 Active 2022 Daniella Rodriguez MD [address], [address], [place], [address] , [employer] 3 09:11:27 Insomnia 027126313 Active 2022 Daniella Rodriguez MD [address], [place], [address] , [employer] 3 09:29:09 Easy bruising 812756313 Active 2022 Daniella Rodriguez MD [address], [place] [address], [place], [address] , [employer] 3 16:05:58 Cobalamin deficienc y 244509186 Active 2022 Daniella Rodriguez MD [address] [address], [place] [address], [place], [address] , [employer] 3 16:06:49 Cough 50264589 Active 2023 Daniella Rodriguez MD [address], [place] [address], [place], [address] , [employer] 4 10:40:07 Essential hypertens ion 16448822 Active 2024 ZOË Gant [address], [place] [address], [place], [address] , [employer] 5 11:26:08 Type 2 diabetes mellitus without complicat ion 736647978 Active 2024 ZOË Gant [address] [facility], [place] [address], [place], [address] , [employer] 5 11:26:32 Problem Notes None recorded. Procedures Surgical History Date Name Laterality Status Provider Name and Address Organization Details Recorded Time 11/14/2022 Transition al_Care_Ma nagement completed Lesia Lundy LPN Qinec [facility] 11/14/2022 09:09:17 Imaging Results Imaging Date Name Status LastModified by Organization Details LastModified Time 10/02/2022 US, pelvis, transabdominal + transvaginal completed [email or web address] [facility] Central Scheduling [address] [place], [address], 10/16/2022 14:33:29 06/13/2024 XR, ankle completed [facility] [address], [place], [address], 06/14/2024 09:41:39 Procedure Notes None recorded. Medical Equipment None Reported. Allergies Allergen ID Allergen Name Allergen Category Reaction Reaction Severity Criticality Documentation Date Start Date Code Code System Note Provider Name and Address Organization Details Recorded Time 91233 Product containin g penicilli n (product) medicatio n rash Not available Not available 06/18/2022 95495 8001 SNOMED Not Available formerly [facility] 3 14:12:16 89836 Easprin medicatio n Not available Not available Not available 06/18/202247771 4 RxNorm nose bleed s Not Available formerly [facility] 3 14:12:16 84889 Dilaudid medicatio n Not available Not available Not available 06/24/2024 82455 3 RxNorm Christa Gallagher RN [facility] [place] - [facility] [employer] 5 11:00:51 Medications Name Sig Start Date Stop Date Status Note LastModified by Organization Details LastModified Time prednisone 10 mg tablet 10/25 completed Not Available Not Available Not Available trazodone 50 mg tablet 09/04 completed Not Available Not Available Not Available azithromyci n 250 mg tablet TAKE 2 TABLETS BY MOUTH ON DAY 1, AND THEN TAKE 1 TABLET BY MOUTH ONCE A DAY ON DAY 2 THROUGH DAY 5 06/24 completed Not Available Not Available Not Available valacyclovi r 1 gram tablet Take 1 tablet every 8 hours by oral route for 7 days. 09/04 completed Not Available Not Available Not Available hydrocodone 5 mg-acetamin ophen 325 mg tablet TAKE ONE TABLET BY MOUTH EVERY 4 HOURS NEEDED FOR PAIN active Not Available Not Available No t Available prednisone 20 mg tablet Take 2 tablets every day by oral route for 5 days. 09/04 completed Not Available Not Available Not Available hydroxyzine pamoate 50 mg capsule 1 po qhs prn insomnia 06/24 completed Not Available Not Available Not Available metronidazo le 500 mg tablet TAKE 1 TABLET BY MOUTH THREE TIMES DAILY FOR 7 DAYS 11/14 completed Not Available Not Available Not Available ciprofloxac in 500 mg tablet TAKE 1 TABLET BY MOUTH TWICE DAILY FOR 7 DAYS 11/14 completed Not Available Not Available Not Available triamcinolo ne acetonide 0.1 % topical cream 09/04 completed Not Available Not Available Not Available aspirin 325 mg tablet,grabiel yed release TAKE ONE TABLET BY MOUTH EVERY TWELVE HOURS 06/24 completed Not Available Not Available Not Available amlodipine 10 mg tablet TAKE ONE TABLET BY MOUTH EVERY DAY active Not Available Not Available No t Available doxycycline monohydrate 100 mg capsule 10/25 completed Not Available Not Available Not Available diclofenac sodium 75 mg tablet,grabiel yed release 09/04 completed Not Available Not Available Not Available levofloxaci n 750 mg tablet 11/17 completed Not Available Not Available Not Available methylpredn isolone 4 mg tablets in a dose pack TAKE BY MOUTH DIRECTED 10/25 completed Not Available Not Available Not Available albuterol sulfate HFA 90 mcg/actuati on aerosol inhaler INHALE 2 PUFFS BY MOUTH EVERY 4 HOURS NEEDED FOR SHORTNESS OF BREATH OR WHEEZING 09/04 completed Not Available Not Available Not Available nitrofurant oin monohydrate /macrocryst als 100 mg capsule Take 1 capsule every 12 hours by oral route for 7 days. 09/04 completed Not Available Not Available Not Available Vitals Date Recorded Body height Body mass index (BMI) Body weight Body temperature Heart rate Oxygen saturation Oxygen saturation in Arterial blood by Pulse oximetry Systolic blood pressure Diastolic blood pressure Provider Name and Address Organization Details Last Updated DateTime 3 180.34 cm 24.3 kg/m2 68913.0 7 g 97 [degF] 78 /min 95 % 95 % 138 mm[Hg] 82 mm[Hg] Kelsey Lyons RN [place] [facility] [place] [employer] 3 14:11:43 Date Recorded Body height Body mass index (BMI) Body weight Body temperature Heart rate Oxygen saturation Oxygen saturation in Arterial blood by Pulse oximetry Systolic blood pressure Diastolic blood pressure Provider Name and Address Organization Details Last Updated DateTime 3 180.34 cm 23 kg/m2 25077.7 4 g 97.8 [degF] 80 /min 95 % 95 % 158 mm[Hg] 80 mm[Hg] Kelsey Lyons RN [facility] [employer] [facility] 3 14:13:42 Date Recorded Body height Body mass index (BMI) Body weight Body temperature Heart rate Oxygen saturation Oxygen saturation in Arterial blood by Pulse oximetry Systolic blood pressure Diastolic blood pressure Provider Name and Address Organization Details Last Updated DateTime 3 180.34 cm 23.4 kg/m2 30160.5 2 g 98 [degF] 88 /min 99 % 99 % 140 mm[Hg] 80 mm[Hg] Lesia Lundy LPN [facility] [employer] 3 09:10:01 Date Recorded Body height Body mass index (BMI) Body weight Body temperature Heart rate Oxygen saturation Oxygen saturation in Arterial blood by Pulse oximetry Systolic blood pressure Diastolic blood pressure Provider Name and Address Organization Details Last Updated DateTime 3 180.34 cm 23.8 kg/m2 45115.3 g 97.2 [degF] 75 /min 97 % 97 % 178 mm[Hg] 92 mm[Hg] Kelsey Lyons RN [facility] [employer] 3 15:42:41 Date Recorded Body weight Body mass index (BMI) Body height Body temperature Heart rate Oxygen saturation Oxygen saturation in Arterial blood by Pulse oximetry Respiratory rate Pain severity - 0-10 verbal numeric rating [Score] - Reported Systolic blood pressure Diastolic blood pressure Provider Name and Address Organization Details Last Updated DateTime 5 62810.9 6 g 22.6 kg/m2 180.34 cm 97.3 [degF] 106 /min 95 % 95 % 20 /min 0 150 mm[Hg] 68 mm[Hg] Christa Gallagher RN [facility] [employer] 5 11:04:23 Social History Question Answer Notes LastModified by Organization Details LastModified Time Tobacco Smoking Status Never Smoker Not Available [employer] 06/18/2022 14:09:47 Do You Have An Advance Directive? No Information not available 06/24/2024 What Is Your Level Of Alcohol Consumption? None MIGRATION.0301 [id number] Information not available 06/18/2022 Are You Blind Or Do You Have Difficulty Seeing? No Information not available 06/24/2024 What Is Your Level Of Caffeine Consumption? Moderate MIGRATION.0301 [id number] Information not available 06/18/2022 In The 14 Days Before Symptom Onset, Have You Had Close Contact With A Laboratory-confi rmed COVID-19 While That Case Was Ill? No MIGRATION.0301 [id number] Information not available 06/18/2022 In The 14 Days Before Symptom Onset, Have You Had Close Contact With A Person Who Is Under Investigation For COVID-19 While That Person Was Ill? No MIGRATION.0301 [id number] Information not available 06/18/2022 Are You Currently Employed? Yes Information not available 06/24/2024 Are You Deaf Or Do You Have Serious Difficulty Hearing? Yes Information not available 06/24/2024 What Type Of Diet Are You Following? REGULAR MIGRATION.0301 [id number] Information not available 06/18/2022 What Is Your Occupation? [employer], [place] Information not available 06/24/2024 Have There Been Any Changes To Your Family Or Social Situation? Yes Broke Ankle Information not available 06/24/2024 Do You Use Insect Repellent Routinely? Yes Information not available 06/24/2024 Where Do You Live? SingleLevelHouse Information not available 06/24/2024 Do You Have A Medical Power Of Cupola Patcher Helper? No Information not available 06/24/2024 Do You Have Any Pets? Yes Information not available 06/24/2024 What Is Your Relationship Status? Information not available 06/24/2024 Do You Use Your Seat Belt Or Car Seat Routinely? Yes Information not available 06/24/2024 Do You Have Smoke And Carbon Monoxide Detectors In Your Home? Yes Information not available 06/24/2024 Are You Passively Exposed To Smoke? No Information not available 06/24/2024 Are There Any Smokers In Your House? No Information not available 06/24/2024 Do You Participate In Social Media? Yes Information not available 06/24/2024 Do You Feel Stressed (tense, Restless, Nervous, Or Anxious, Or Unable To Sleep At Night)? [id number] Information not available 06/24/2024 Do You Use Any Illicit Or Recreational Drugs? No MIGRATION.0301 311151 Information not available 06/18/2022 Do You Use Sunscreen Routinely? Yes Information not available 06/24/2024 Has Tobacco Cessation Counseling Been Provided? No MIGRATION.0301 379991 Information not available 06/18/2022 Have You Recently Traveled Abroad? No MIGRATION.0301 [id number] Information not available 06/18/2022 Do You Have Any Dietary Restrictions? No MIGRATION.0301 [id number] Information not available 06/18/2022 Do You Or Have You Ever Used Any Other Forms Of Tobacco Or Nicotine? No MIGRATION.0301 845641 Information not available 06/18/2022 Sex: Unknown Functional Status Question Answer Note LastModified by Organizat ion Details LastModified Time Do you have difficulty walking or climbing stairs? Yes uses scooter due to ankle injury Information not available 06/24/2024 Do you have transportation difficulties? No Information not available 06/24/2024 Are you able to walk? YESWOREST currently has scooter due to ankle surgery Information not available 06/24/2024 Do you have difficulty doing errands alone? No Information not available 06/24/2024 Are you able to care for yourself? Yes Information n ot available 06/24/2024 Do you have difficulty dressing or bathing? No not normally Information not available 06/24/2024 What is your exercise level? Moderate MIGRATION.58933 [id number] Information not available 06/18/2022 Mental Status Question Answer Note LastModified by Organization D etails LastModified Time Do you have difficulty concentrating, remembering or making decisions? Yes Information no t available 06/24/2024 Family History Relationship Description Onset Age of this Age Resolved Age Notes LastModified by Organization Details LastModified Time Maternal Grandmother Diabetes mellitus MIGRATION.540 [id number] Not available 06/18/2022 14:09:49 Medical History Condition Response HYPERTENSION Y Gynecological History Statement/Question Response If Post Menopausal, Age at Menopause 43 Date of Last Colonoscopy Most Recent Mammogram Most Recent Bone Density Obstetrics History GPAL:G 0 P 0 0 0 0 Past Encounters Encounter ID Performer Location Encounter Start Date Encounter Closed Date Diagnosis/Indication Diagnosis SNOMED-CT Code Diagnosis ICD10 Code Diagnosis Note [id number] [facility] [address] [facility] [address] [place] [address] 12/04/2020 00:00:00 12/17/2020 19[facility]26:[id number] [address] [facility] [address] [place] [address] 06/11/2022 00:00:00 06/11/2022 16:15:05 [id number] Daniella Rodriguez MD [facility] [address] [facility] [address] [place] [address] 09/03/2022 14:04:02 09/03/2022 15:15:20 Cyst of left ovary 3008527988 0275901 N83.[address] scan, needs f/u US Petechiae of skin 262369 004 R23.3 E87.6 check labs? due to IV contrast allergyrem ain off abx [id number] Daniella Rodriguez MD [facility] [address] [facility] [address] [place] [address] 10/16/2022 14:07:09 10/16/2022 16:47:40 Hyperglycemia 70669408 R73.9 visibly shaky, felt better after eating cookieeat smaller, more frequent meals during the daycheck labs Loss of hair 211660487 L 65.[address] of abdo men abnormal 5685141372 5610626 R93.5 f/u pelvic US normal, no painno further evaluation needed [id number] Daniella Rodriguez MD [facility] [address] [facility] [address] [place] [address] 11/14/2022 09:02:28 11/14/2022 09:33:17 Kidney stone 44757337 N20.0 has upcoming appt with [facility] plete course of levofloxac instay well hydrated Insomnia 667045650 G47.0 0 sleep hygeinehyd roxyzine 50 mg po qhs prn insomnia, do not take before driving/wo rkingf/u in 4 weeks or sooner if needed [id number] Daniella Rodriguez MD [facility] Primary Care [facility] [address] [place] [address] 03/26/2023 15:36:25 03/26/2023 16:33:21 Hyperglycemia 82927240 R73.9 uncertain controlche ck labs Easy bruising 534756477 R58 likely due to chronic sun exposureav oid sun exposure, daily sunscreen usecheck labs Cobalamin deficiency 190 207432 E53.8 [id number] ZOË Gant [facility] [address] [place] [address] 06/24/2024 10:42:31 06/24/2024 14:57:26 Adult health examination 824697658 Z00.00 Essential hypertension 47870944 I10 Advised to take amlodipine as directedLi celso sodium and increase water intake Type 2 elis betes mellitus without complication 229026089 E11.9 Last A1C 6.8, treated with diet and exercise History of small bowel obstruction 3757341464 40162764 Z87.19 Linzess 72 mcg given in officeAdvi sed to continue fiber, increased water intake, and stool softenerAd vised to decrease laxative use Screening for malignant neoplasm of colon 309094517 Z12.11 Has never had screening, states will not do colonoscop y. Advised colonoscop y due to hx of diverticul itis Cholesterol screening 27 5174092 Z13.220 Health Concerns Section Related Observation LastModified by Organization Detai ls LastModified Time None Recorded Concern Status LastModified by Organization Details LastModified Time None Recorded Advance Directives Directive N: Payers Encounter Date Sequence Insurance Name Policy Number Policy Rice Covered Member ID Rice Member ID Guarantor Name 09/03/2022 1 [employer] (MEDICARE REPLACEMENT PPO) [id number] Karis Granda [id number] Karis Granda 09/03/2022 2 [place]ARE OR MEDICARE REPLACEMENT PRIMARY) Karis Granda [id number] Karis Granda 10/16/2022 1 [employer] (MEDICARE REPLACEMENT PPO) [id number] Karis R Granda [id number] Karis Granda 10/16/2022 2 [place] OR [place]IC[place] REPLACEMENT [place]) Karis Granda [id number] Karis Granda 11/14/2022 1 [employer] (MEDICARE REPLACEMENT PPO) [id number] Karis R Granda [id number] Karis Granda 11/14/2022 2 [place] OR MEDICARE REPLACEMENT PRIMARY) Karis Granda [id number] Karis Granda 03/26/2023 1 [employer] (MEDICARE REPLACEMENT PPO) [id number] L Karis R Granda [id number] Karis Granda 03/26/2023 2 [place]ARE OR MEDICARE REPLACEMENT PRIMARY) Karis Granda [id number] Karis Granda 06/24/2024 1 [facility] (MEDICARE REPLACEMENT/AD VANTAGE - HMO) [id number] Karis Granda [id number] Karis Granda Notes Date Note Type Note Provider Name and Address Organization Details Recorded Time 09/03/2022 text/html d/c to home on W ed after appendectomy complicated by rupture, back to ER no rash then just pain, rash showed up Thursday after CT scan with dye no itchingno swelling of mouth, tongue, throatrash now improving had been started on oral abx on Thu she d/c the abxstill nauseated, no fever, no diarrhea, no vomiting Daniella Rodriguez MD [address] [facility], [facility] [address], [place], [address], [facility] [employer] 2022 22:27:02 10/16/2022 text/html having some episodes of low blood sugars that occur randomly. When she feels that way her blood sugars are in the 50s-60s. She notes that on days when she skips breakfast she does not have she is having hair loss in large clumps. She was taking biotin which helped, but she had to d/c it a few months ago due to expense. A few weeks ago she noticed increase shedding of her hair and it has gotten noticeably thin. Daniella Rodriguez MD [address], [facility] [address], [place], [address], [employer] 10/17/2022 12:24:33 11/14/2022 text/html here to f/u on recent kidney stone. A stent has been placed, currently on levofloxacin. She drinks rare soda, occ a cup of coffee. Has f/u appt with urology to arrange stent removal and discuss any future treatment. hard to fall asleep/stay asleep. Tried otc melatonin but it didn't help, hard to turn mind off at night Daniella Rodriguez MD [address], [place] [address], [place], [address], [employer] 11/16/2022 16:06:18 03/26/2023 text/html Here for f/u noticing easy bruising on armsno chest pain or sobno home blood sugars for review Daniella Rodriguez MD [address], [place] [address], [place], [address], [employer] 04/16/2023 09:22:33 06/24/2024 text/html Karis Granda i s a 68 year old female patient here today to establish care She was discharged from the hospital for a fall resulting in a fracture of the RLE requiring ORIF. She is managing well. Home health is coming today. Had associated SBO History of hyperglycemia - A1C 6.8 Newly onset hypertension. Was prescribed amlodipine 10 mg, she admits she has not been taking this. Hx of diverticulitis, has not had colonoscopy Flu declinesCOVID declinesTdap 2023Mammogram no more ZOË Gant [address], [facility] [address], [place], [address], [employer] 06/24/2024 14:23:31 OBGyn Episode No OBEpisode recorded.
--- OUTSIDE RECORDS SUMMARY | 2024-07-28 15:00 | XMS_ITS | Clinical Summary ---
Author Organization [facility] Address [address] [place] [address] Care Team Providers Care Cotton Tier Name Role Phone Felicitas Fatima NP Primary Care Provider [phone] Allergies Active Allergy Reactions Criticality Noted Date Comments Hydromorphone Hallucinations Medium 08/29/2022 Penicillins Hives,Rash,Unknown Low 11/12/2014 Medications amLODIPine (NORVASC) 10 MG tablet Take 1 tablet (10 mg total) by mouth daily. 06/14/2024 Active HYDROcodone-acet aminophen (NORCO) 5-325 MG tablet Take 1 tablet by mouth every 4 (four) hours as needed. FOR PAIN 06/14/2024 Active aspirin 325 MG tablet Take 1 tablet (325 mg total) by mouth 2 (two) times daily. Active Active Problems Problem Noted Date Diagnosed Date Small bowel obstruction ([facility]) 2024 Constipation 06/20/2024 Elevated hemoglobin A1c 11/05/2022 Overview (06/20/2024): Hemoglobin A1c 6.6% on 11/03/22 Kidney stone 11/04/2022 LACY (acute kidney injury) 11/03/2022 Dehydration 11/03/2022 Hydronephrosis of right kidney 11/03/2022 Right ureteral stone 11/03/2022 Acute appendicitis 08/24/2022 Blood pressure elevated without history of HTN 0 08/24/2022 Right lower quadrant abdominal pain 08/24/2022 Acute respiratory failure with hypoxia ([facility]) 11/08/2020 COVID-19 virus infection 11/08/2020 Cholecystitis 12/22/2018 Encounters Date Type Department Care Team Description 06/24/2024 Home Care Visit [facility] Home Care [address] [place] [address] [place] [address] Gracie Meredith RN SN NON ADMIT SOC 06/20/2024 Travel 06/19/2024 11:52 PM FUEL OPERATOR - 06/22/2024 6:20 PM FUEL OPERATOR Hospital Encounter [facility] Med/Surg [address] [place] [address] Cayden Burgos MD Malcolm, MD Jaswinder Ngo Andrew, MD Dodt, Tyrone Atkins, GENDER STUDIES PROFESSOR Constipation Discharge Disposition: Home with Home Health Care 05/28/2024 9:38 AM FUEL OPERATOR - 05/28/2024 11:58 AM FUEL OPERATOR Emergency [facility] Emergency Room [address] [place] [address] Ramos Carey MD URI Discharge Disposition: Home or Self Care (Routine Discharge) 05/28/2024 Travel from Last 3 Months Social History Tobacco Use Types Packs/Day Years Used Date Smoking Tobacco: Never Smokeless Tobacco: Never Tobacco Cessation:Counseling Given: Not Answered Alcohol Use Standard Drinks/Week Comments Never 0 (1 standard drink = 0.6 oz pur e alcohol) [facility] Utilities Answer Date Recorded In the past 12 months has [facility] [employer], oil, or water [employer] threatened to shut off services in your home? Patient declined 06/20/2024 Humiliation, Afraid, Rape, and Kick questionnair e Answer Date Recorded Within the last year, have y ou been afraid of your partner or ex-partner? Patient declined 06/20/2024 Within the last year, have y ou been humiliated or emotionally abused in other ways by your partner or ex-partner? Patient declined 06/20/2024 Within the last year, have y ou been kicked, hit, slapped, or otherwise physically hurt by your partner or ex-partner? Patient declined 06/20/2024 Within the last year, have y ou been raped or forced to have any kind of sexual activity by your partner or ex-partner? Patient declined 06/20/2024 Overall Financial Resource Strain (CARDIA) Answe r Date Recorded How hard is it for you to pa y for the very basics like food, housing, medical care, and heating? Patient declined 06/20/2024 Hunger Vital Sign Answer Date Recorded Within the past 12 months, y ou worried that your food would run out before you got the money to buy more. Patient declined Within the past 12 months, t he food you bought just didn't last and you didn't have money to get more. Patient declined 06/2024 PRAPARE - Transportation Answer Date Re corded In the past 12 months, has l ack of transportation kept you from medical appointments or from getting medications? Patient declined 06/20/2024 In the past 12 months, has l ack of transportation kept you from meetings, work, or from getting things needed for daily living? Patient declined 06/20/2024 Housing Stability Vital Sign Answer Evert e Recorded In the last 12 months, was t here a time when you were not able to pay the mortgage or rent on time? Patient declined 06/21/19 In the past 12 months, how m any times have you moved where you were living? 0 06/20/2024 At any time in the past 12 m [place] [place], were you homeless or living in a prison (including now)? Patient declined 06/20/2024 Comments Unknown Sex and Gender Information Value Date Recorded Sex Assigned at Female 06/20/2024 12:05 AM FUEL OPERATOR Legal Sex Female 7:42 PM CDT Gender Identity Female 06/20/2024 12:05 AM FUEL OPERATOR Sexual Orientation Not on file Last Filed Vital Signs Vital Sign Reading Time Taken Comments Blood Pressure 146/74 06/22/2024 4:00 PM FUEL OPERATOR rn notified Pulse 72 06/22/2024 11:33 AM FUEL OPERATOR Temperature 36.7 C (98.1 F) 06/22/2024 4:00 PM FUEL OPERATOR Respiratory Rate 18 06/22/2024 4:00 PM FUEL OPERATOR Oxygen Saturation 97% 06/22/2024 4:0 0 PM FUEL OPERATOR Inhaled Oxygen Concentration - - Weight 73.5 kg (162 lb 0.6 oz) 06/22/19 25 5:00 AM FUEL OPERATOR Height 182.9 cm (6') 06/20/2024 6:46 AM FUEL OPERATOR Body Mass Index 21.98 06/20/2024 6:46 AM FUEL OPERATOR Plan of Treatment Health Maintenance Due Date Last Done Comments Colorectal Cancer Screening Colonoscopy (10 Years) 1955 Hepatitis C 09/17/1971 Mammogram Screening 1993 Zoster Vaccines (1 of 2) 09/17/2003 Annual Medicare Wellness Visit 2018 Pneumococcal Vaccine: 65+ Years (1 of 1 - PCV) 2018 COVID-19 Vaccine ( - 2023-2 5 season) 2023 DTaP, Tdap and Td Vaccines ( 3 [...] on patient's age to complete this topic Goals Goal Patient Goal Type Associated Problems Recent Progress Patient-Stated? Author Patient will return to prior living situation and remain independent in ADLs upon discharge from hospital Lifestyle No Melani Enriquez, waste management engineer Procedure Name Priority Date/Time Associated Diagnosis Comments BASIC METABOLIC PANEL TIMED 06/22/2024 2:58 PM FUEL OPERATOR XR ABD KUB TIMED 06/22/2024 6:56 AM FUEL OPERATOR MAGNESIUM Routine 06/22/2024 5:19 AM FUEL OPERATOR BASIC METABOLIC PANEL Routine 06/22/2024 5:19 AM FUEL OPERATOR CBC W/DIFF AUTOMATED Routine 06/22/2024 5:[address] ABD+PEL WO CON STAT 06/21/2024 12: 42 PM FUEL OPERATOR XR ABD KUB SUKHI 06/21/2024 11:11 AM FUEL OPERATOR MAGNESIUM Routine 06/21/2024 5:16 AM FUEL OPERATOR BASIC METABOLIC PANEL Routine 06/21/2024 5:16 AM FUEL OPERATOR CBC W/DIFF AUTOMATED Routine 06/21/2024 5:16 AM FUEL OPERATOR XR ABD FLAT+UPRIGHT STAT 06/20/2024 1 2:28 AM FUEL OPERATOR COMPREHENSIVE METABOLIC PANEL STAT 06/20/2024 12:09 AM FUEL OPERATOR CBC W/DIFF AUTOMATED STAT 06/20/2024 12:09 AM FUEL OPERATOR ECG 12-LEAD STAT 05/28/2024 10:22 AM FUEL OPERATOR XR CHEST PORTABLE STAT 05/28/2024 10: 20 AM FUEL OPERATOR PRO-BRAIN NATRIURETIC PEPTIDE STAT 05/28/2024 10:18 AM FUEL OPERATOR TROPONIN, QUANT STAT 05/28/2024 10:18 AM FUEL OPERATOR COMPREHENSIVE METABOLIC PANEL STAT 05/28/2024 10:18 AM FUEL OPERATOR CBC W/DIFF AUTOMATED STAT 05/28/2024 10:18 AM FUEL OPERATOR RESP SYNCYTIAL VIRUS STAT 05/28/2024 10:15 AM FUEL OPERATOR INFLUENZA A & B STAT 05/28/2024 9:45 AM FUEL OPERATOR CORONAVIRUS (COVID 19) STAT 9:45 AM FUEL OPERATOR from Last 3 Months Results * (ABNORMAL) BASIC METABOLIC PANEL (06/22/2024 2:58 PM FUEL OPERATOR) Only the most recent of3 resultswithin the time period is included. GLUCOSE 162(H) 70 - 99 MG/DL 06/22/2024 3:16 PM [facility] BUN 13 7 - 18 MG/DL 06/22/2024 3:16 PM [facility] CREATININE S/P/B 1.00 0.55 - 1.02 MG/DL 06/22/2024 3:16 PM [facility] SODIUM S/P/B 137 136 - 145 MMOL/L 06/22/2024 3:16 PM [facility] POTASSIUM S/P/B 3.4(L) 3.5 - 5.1 MMOL/L 06/22/2024 3:16 PM [facility] CHLORIDE S/P/B 101 100 - 108 MMOL/L 06/22/2024 3:16 PM [facility] CO2 25.8 21 - 32 MMOL/L 06/22/2024 3:16 PM [facility] CALCIUM S/P/B 9.7 8.5 - 10.1 MG/DL 06/22/2024 3:16 PM [facility] ANION GAP 10.2 5 - 15 MMOL/L 06/22/2024 3:16 PM [facility] BUN CREATININE RATIO 13.0 6 - 26 06/22/2024 3:16 PM [facility] GFR ESTIMATE 61(L) >90 ML/MIN/1.7 3 M2 06/22/2024 3:16 PM [facility] Comment: NOTE: eGFR is not calculated for patients <18 years of age. This is an estimated GFR calculation using the new CKD EPI creatinine equation without race and so does not require a correction factor for race. This estimated GFR should not be used for calculating drug doses. 06/22/2024 2:58 PM FUEL OPERATOR Tyrone Saenz APRN LABORATORY Final Result [facility] [address] [place] [address], * XR ABD KUB (06/22/2024 6:56 AM FUEL OPERATOR) Only the most recent of2 resultswithin the time period is included. Anatomical Region Laterality Modality Abdomen Radiographic Silvia ging 06/22/2024 6:57 AM FUEL OPERATOR Impressions 06/22/2024 6:59 AM FUEL OPERATOR IMPRESSION: 1. PERSISTENT GASEOUS DISTENTION OF THE CECUM SIMILAR TO PREVIOUS STUDY. NO SIGNIFICANTLY DILATED SMALL BOWEL LOOPS. Signed: Florencio Garces MD Referred By: Interpreted By: Florencio Garces MD, 06/22/2024 6:57 AM Narrative 06/22/2024 6:59 AM FUEL OPERATOR [facility] [address] [place] [address] PATIENT NAME: LE[facility] EXAM: Abdomen one view DATE OF EXAM: 06/23/2023 COMPARISON EXAM: 06/22/2023 INDICATION: Bowel obstruction TECHNIQUE: Supine AP view abdomen/pelvis FINDINGS: There is persistent significant gaseous distention of the cecum similar to previous study. Gas is otherwise noted throughout nondistended colon. No dilated loops of small bowel. No evidence of organomegaly nor mass lesion. Mild scoliosis with chronic degenerative disc disease thoracolumbar spine. Procedure Note Florencio Garces MD - 06/22/2024 [facility] [address] [place] [address] PATIENT NAME: [place] EXAM: Abdomen one view DATE OF EXAM: 06/23/2023 COMPARISON EXAM: 06/22/2023 INDICATION: Bowel obstruction TECHNIQUE: Supine AP view abdomen/pelvis FINDINGS: There is persistent significant gaseous distention of the cecumsimilar to previous study. Gas is otherwise noted throughout nondistendedcolon. No dilated loops of small bowel. No evidence of organomegaly normass lesion. Mild scoliosis with chronic degenerative disc diseasethoracolumbar spine. IMPRESSION: 1. PERSISTENT GASEOUS DISTENTION OF THE CECUM SIMILAR TO PREVIOUS STUDY.NO SIGNIFICANTLY DILATED SMALL BOWEL LOOPS. Signed: Florencio Garces MD Referred By: Interpreted By: Florencio Garces MD, 06/22/2024 6:57 AM [facility] GENDER STUDIES PROFESSOR GENERAL IMAGING Final Result * (ABNORMAL) CBC W/DIFF AUTOMATED (06/22/2024 5:19 AM FUEL OPERATOR) Only the most recent of4 resultswithin the time period is included. WBC 10.50 4.4 - 11.0 x10'3/uL 06/22/2024 6:14 AM [facility] RBC 4.36(L) 4.50 - 5.10 x10'6/uL 06/22/2024 6:14 AM [facility] HGB 13.2 12.3 - 15.3 G/DL 06/22/2024 6:14 AM [facility] HCT 39.1 35.9 - 44.6 % 06/22/2024 6:14 AM [facility] MCV 89.7 80.0 - 96.0 FL 06/22/2024 6:14 AM [facility] MCH 30.3 25.3 - 30.9 PG 06/22/2024 6:14 AM [facility] MCHC 33.8 31.0 - 34.1 G/DL 06/22/2024 6:14 AM [facility] RDW 14.0 12.4 - 15.1 % 06/22/2024 6:14 AM [facility] PLT 247 151 - 353 x10'3/uL 06/22/2024 6:14 AM [facility] MPV 9.2(L) 9.6 - 12.0 FL 06/22/2024 6:14 AM [facility] RBC MORPHOLOGY NORMAL 06/22/2024 6:14 AM [facility] PLT MORPH. NORMAL 06/22/2024 6:14 AM [facility] WBC MORPHOLOGY NORMAL 06/22/2024 6:14 AM [facility] LYMPHOCYTES % 37.9 15.8 - 45.0 % 06/22/2024 6:14 AM [facility] NEUTROPHILS % 52.0 42.1 - 71.9 % 06/22/2024 6:14 AM [facility] MONOCYTES % 7.7 5.7 - 12.5 % 06/22/2024 6:14 AM [facility] EOSINOPHILS 1.7 0.0 - 5.6 % 06/22/2024 6:14 AM [facility] BASOPHILS 0.4 0.0 - 1.3 % 06/22/2024 6:14 AM [facility] ABS. NEUTROPHILS 5.46 1.40 - 6.00 x10'3/uL 06/22/2024 6:14 AM [facility] IMMATURE GRANS % 0.3 0.0 - 0.5 % 06/22/2024 6:14 AM [facility] ABS. LYMPHOCYTES 3.98 0.80 - 4.70 x10'3/uL 06/22/2024 6:14 AM [facility] 06/22/2024 5:19 AM FUEL OPERATOR Tyrone Saenz GENDER STUDIES PROFESSOR LABORATORY Final Result [facility] [address] [place] [address], [place] [phone] * (ABNORMAL) MAGNESIUM (06/22/2024 5:19 AM FUEL OPERATOR) Only the most recent of2 resultswithin the time period is included. MAGNESIUM 1.6(L) 1.8 - 2.4 MG/DL 06/22/2024 7:22 AM FUEL OPERATOR [facility] 06/22/2024 5:19 AM FUEL OPERATOR Tyrone Saenz GENDER STUDIES PROFESSOR LABORATORY Final Result [facility] [address] [place] [address], * CT ABD+PEL WO CON (06/21/2024 12:42 PM FUEL OPERATOR) Anatomical Region Laterality Modality Abdomen Computed Tomogra phy 06/21/2024 12:4 6 PM FUEL OPERATOR Addenda Addendum by Jerry Brown MD on 06/21/2024 1:33 PM FUEL OPERATOR [facility] [address] [place] [address] Direct visualization the left colon recommended. Ordered By: TYRONE SAENZ Interpreted By: Jerry Brown MD, 06/21/2024 1:29 PM Impressions 06/21/2024 1:16 PM FUEL OPERATOR =====IMPRESSION:===== 1. Dilatation of the right and transverse and portions the left colon. Tapering to area of narrowing is seen in the mid to distal transverse colon. Partial or early obstruction in this area is possible. 2. Additional findings as described above. Ordered By: TYRONE SAENZ Interpreted By: Jerry Brown MD, 06/21/2024 12:46 PM Narrative 06/21/2024 1:16 PM FUEL OPERATOR [facility] [address] [place] [address] EXAMINATION: CT Abdomen and Pelvis without contrast EXAM DATE/TIME: 06/21/2024 12:15 PM REASON FOR EXAM: increase gaseous distention on cecum on KUB COMPARISON: 06/20/2024. TECHNIQUE: Axial CT images of the abdomen and pelvis are obtained without the use of IV contrast agent. Subsequent coronal and sagittal reformatted sequences are created for evaluation. A dose lowering technique was used for this procedure, which may include, but is not limited to, dose reduction technique, automated exposure control, the use of iterative reconstruction, and ALARA (As Low As Reasonably Achievable) / Image Gently techniques. FINDINGS: Marked colonic dilatation is seen. This includes the right and transverse colon and portions of the left colon. The cecum measures 8.4 cm in diameter. This extends to an area of the left colon where there is some narrowing. This is seen on image 109 of sagittal series 5. Relatively Gradual transition is noted however. No definite discrete mass is seen. There is mild amount of gas and stool distal to this area. Multiple diverticula are seen without evidence of acute diverticulitis. Lung Bases: Calcified nodules consistent granulomatous change. Scattered groundglass opacities are somewhat nonspecific. No pleural effusion is seen. Liver:The liver is enlarged measuring 21.6 cm in craniocaudal extent. Gallbladder and Biliary system:Prior cholecystectomy is suspected. Pancreas:Unremarkable. Spleen:Punctate calcifications in spleen are consistent granulomatous change. Kidneys:2 mm nonobstructive left renal stone is noted. There is no evidence of hydronephrosis . Ureters and bladder: No hydroureter is seen. No stone in the urinary bladder is noted. Adrenals:Normal. Bowel:In addition to findings described above, No small bowel dilatation is seen.The stomach is somewhat distended.The appendix is not visualized. Aorta and Retroperitoneum:No enlarged lymph nodes.Calcification of the aorta is consistent with atherosclerotic change. Aortic dissection is suspected with luminal calcification such as on image 74 and adjacent images of axial series 2 Pelvic Organs:Unremarkable Bone/Musculoskeletal: No aggressive osseous lesions. Ascites: None Additional Findings: No evidence of ventral or inguinal wall hernia seen. Procedure Note Jerry Brown MD - 06/21/2024 [facility] [address] [place] [address] EXAMINATION: CT Abdomen and Pelvis without contrast EXAM DATE/TIME: 06/21/2024 12:15 PM REASON FOR EXAM: increase gaseous distention on cecum on KUB COMPARISON: 06/20/2024. TECHNIQUE: Axial CT images of the abdomen and pelvis are obtained withoutthe use of IV contrast agent. Subsequent coronal and sagittal reformattedsequences are created for evaluation. A dose lowering technique was usedfor this procedure, which may include, but is not limited to, dosereduction technique, automated exposure control, the use of iterativereconstruction, and ALARA (As Low As Reasonably Achievable) / Image Gentlytechniques. FINDINGS: Marked colonic dilatation is seen. This includes the right andtransverse colon and portions of the left colon. The cecum measures 8.4 cmin diameter. This extends to an area of the left colon where there is somenarrowing. This is seen on image 109 of sagittal series 5. RelativelyGradual transition is noted however. No definite discrete mass is seen.There is mild amount of gas and stool distal to this area. Multiplediverticula are seen without evidence of acute diverticulitis. Lung Bases: Calcified nodules consistent granulomatous change. Scatteredgroundglass opacities are somewhat nonspecific. No pleural effusion isseen. Liver:The liver is enlarged measuring 21.6 cm in craniocaudal extent. Gallbladder and Biliary system:Prior cholecystectomy is suspected. Pancreas:Unremarkable. Spleen:Punctate calcifications in spleen are consistent granulomatouschange. Kidneys:2 mm nonobstructive left renal stone is noted. There is noevidence of hydronephrosis . Ureters and bladder: No hydroureter is seen. No stone in the urinarybladder is noted. Adrenals:Normal. Bowel:In addition to findings described above, No small bowel dilatationis seen.The stomach is somewhat distended.The appendix is notvisualized. Aorta and Retroperitoneum:No enlarged lymph nodes.Calcification of theaorta is consistent with atherosclerotic change. Aortic dissection issuspected with luminal calcification such as on image 74 and adjacentimages of axial series 2 Pelvic Organs:Unremarkable Bone/Musculoskeletal: No aggressive osseous lesions. Ascites: None Additional Findings: No evidence of ventral or inguinal wall herniaseen. =====IMPRESSION:===== 1. Dilatation of the right and transverse and portions the left colon.Tapering to area of narrowing is seen in the mid to distal transversecolon. Partial or early obstruction in this area is possible. 2. Additional findings as described above. Ordered By: TYRONE SAENZ Interpreted By: Jerry Brown MD, 06/21/2024 12:46 PM us Tyrone Saenz GENDER STUDIES PROFESSOR CT Edited Result - Final * XR ABD FLAT+UPRIGHT (06/20/2024 12:28 AM FUEL OPERATOR) Anatomical Region Laterality Modality Abdomen Radiographic Silvia ging 06/20/2024 12:5 6 AM FUEL OPERATOR Impressions 06/20/2024 1:00 AM FUEL OPERATOR IMPRESSION: 1. Possible mild small bowel ileus versus enteritis. 2. Moderate-sized fecal ball in rectum may be due to mild impaction. 3. No free air. No gross intra-abdominal mass. Postoperative change as above. Referred By: Interpreted By: Chaitanya Velez MD, 06/20/2024 12:56 AM Narrative 06/20/2024 1:00 AM FUEL OPERATOR [facility] [address] [place] [address] EXAMINATION: ABDOMEN RADIOGRAPH EXAM DATE: 06/20/2024 12:01 AM REASON FOR EXAM: constipation COMPARISON: None TECHNIQUE: 4 views FINDINGS: No evidence of free air. Surgical clips in right mid abdomen. Fecal ball in rectum measures 7.2 cm. Mild stool in remaining colon without gross obstruction. Air in nondilated small bowel with scattered air-fluid levels. May be due to ileus versus enteritis. Cholecystectomy. Lung bases are clear. Moderate degenerative change and scoliotic lumbar spine. Phleboliths in pelvis. Procedure Note Chaitanya Velez MD - 06/20/2024 [facility] [address] [place] [address] EXAMINATION: ABDOMEN RADIOGRAPH EXAM DATE: 06/20/2024 12:01 AM REASON FOR EXAM: constipation COMPARISON: None TECHNIQUE: 4 views FINDINGS: No evidence of free air. Surgical clips in right mid abdomen. Fecal ball in rectum measures 7.2 cm. Mild stool in remaining colonwithout gross obstruction. Air in nondilated small bowel with scattered air-fluid levels. May be dueto ileus versus enteritis. Cholecystectomy. Lung bases are clear. Moderate degenerative change and scoliotic lumbar spine. Phleboliths inpelvis. IMPRESSION: 1. Possible mild small bowel ileus versus enteritis. 2. Moderate-sized fecal ball in rectum may be due to mild impaction. 3. No free air. No gross intra-abdominal mass. Postoperative change asabove. Referred By: Interpreted By: Chaitanya Velez MD, 06/20/2024 12:56 AM Cayden Burgos MD GENERAL IMAGING Final Resul t * (ABNORMAL) COMPREHENSIVE METABOLIC PANEL (06/20/2024 12:09 AM FUEL OPERATOR) Only the most recent of2 resultswithin the time period is included. GLUCOSE 140(H) 70 - 99 MG/DL 06/20/2024 12:42 AM [facility] BUN 26(H) 7 - 18 MG/DL 06/20/2024 12:42 AM [facility] CREATININE S/P/B 1.13(H) 0.55 - 1.02 MG/DL 06/20/2024 12:42 AM [facility] SODIUM S/P/B 136 136 - 145 MMOL/L 06/20/2024 12:42 AM [facility] POTASSIUM S/P/B 3.5 3.5 - 5.1 MMOL/L 06/20/2024 12:42 AM [facility] CHLORIDE S/P/B 97(L) 100 - 108 MMOL/L 06/20/2024 12:42 AM [facility] CO2 28.2 21 - 32 MMOL/L 06/20/2024 12:42 AM [facility] CALCIUM S/P/B 10.0 8.5 - 10.1 MG/DL 06/20/2024 12:42 AM [facility] BILIRUBIN TOTAL S/P/B 0.9 0.2 - 1.2 MG/DL 06/20/2024 12:42 AM [facility] TOTAL PROTEIN S/P/B 8.0 6.4 - 8.2 G/DL 06/20/2024 12:42 AM [facility] ALBUMIN S/P/B 3.7 3.4 - 5.0 G/DL 06/20/2024 12:42 AM [facility] AST 17 15 - 37 U/L 06/20/2024 12:42 AM [facility] ALT 13(L) 14 - 55 U/L 06/20/2024 12:42 AM [facility] ALKALINE PHOSPHATASE S/P/B 95 50 - 136 U/L 06/20/2024 12:42 AM [facility] ANION GAP 10.8 5 - 15 MMOL/L 06/20/2024 12:42 AM [facility] BUN CREATININE RATIO 23.0 6 - 26 06/20/2024 12:42 AM [facility] A/G RATIO 0.9(L) 1.0 - 2.0 RATIO 06/20/2024 12:42 AM [facility] GFR ESTIMATE 52(L) >90 ML/MIN/1.7 3 M2 06/20/2024 12:42 AM [facility] Comment: NOTE: eGFR is not calculated for patients <18 years of age. This is an estimated GFR calculation using the new CKD EPI creatinine equation without race and so does not require a correction factor for race. This estimated GFR should not be used for calculating drug doses. 06/20/2024 12:0 9 AM FUEL OPERATOR Cayden Burgos MD LABORATORY Final Resul t [facility] [address] [place] [address], * ECG 12 lead (05/28/2024 10:22 AM FUEL OPERATOR) 05/28/2024 10:2 2 AM FUEL OPERATOR Narrative [facility] - 05/29/2024 4:28 PM FUEL OPERATOR [facility] Test Date: 2024-05-28 Pat Name: [facility] Department: Room: EXAM 202 Gender: Female Food Supervisor: : 1955 Requested By: RAMOS CAREY Order Number: [id number] Reading MD: Douglas Brizuela Measurements Intervals [place] Rate: 62 P: 41 SD: 162 QRS: -20 QRSD: 105 T: 12 QT: 410 QTc: 417 Interpretive Statements SINUS RHYTHM VOLTAGE CRITERIA FOR LVH [MEETS CRITERIA IN ONE OF: R(aVL), S(V1), R(V5), R(V5/V6)+S(V1)] NONSPECIFIC T-WAVE ABNORMALITY No previous ECG available for comparison OPERATOR Procedure Note Douglas Brizuela MD - 05/29/2024 [facility] Test Date: 2024-05-28 Pat Name: [facility] Department: Room: EXAM 202 Gender: Female Food Supervisor: : 1955 Requested By: RAMOS CAREY Order Number: [id number] Reading MD: Douglas Brizuela Measurements Intervals [place] Rate: 62 P: 41 SD: 162 QRS: -20 QRSD: 105 T: 12 QT: 410 QTc: 417 Interpretive Statements SINUS RHYTHM VOLTAGE CRITERIA FOR LVH [MEETS CRITERIA IN ONE OF: R(aVL), S(V1),R(V5), R(V5/V6)+S(V1)] NONSPECIFIC T-WAVE ABNORMALITY No previous ECG available for comparison OPERATOR us Ramos Carey MD ECG ORDERABLES Final Result [facility] * XR CHEST PORTABLE (05/28/2024 10:20 AM FUEL OPERATOR) Anatomical Region Laterality Modality Chest Radiographic Silvia ging 05/28/2024 10:2 3 AM FUEL OPERATOR Impressions 05/28/2024 10:23 AM FUEL OPERATOR IMPRESSION: No acute findings Ordered By: RAMOS CAREY Interpreted By: Gary Louis MD, 05/28/2024 10:23 AM Narrative 05/28/2024 10:23 AM FUEL OPERATOR [address] [place] [address] SINGLE VIEW OF THE CHEST Clinical history: Cough Comparison: None A single view of the chest demonstrates the cardiac silhouette to be normal in size and appearance. The pulmonary vasculature appears normal. The Lungs are clear. No consolidations or effusions are seen. Procedure Note Gary Louis MD - 05/28/2024 [facility] [id number] [place] [address]. [place] [id number] SINGLE VIEW OF THE CHEST Clinical history: Cough Comparison: None A single view of the chest demonstrates the cardiac silhouette to benormal in size and appearance. The pulmonary vasculature appears normal.The Lungs are clear. No consolidations or effusions are seen. IMPRESSION: No acute findings Ordered By: RAMOS CAREY Interpreted By: Gary Louis MD, 05/28/2024 10:23 AM us Ramos Carey MD GENERAL IMAGING Final Result * (ABNORMAL) PRO-BRAIN NATRIURETIC PEPTIDE (05/28/2024 10:18 AM FUEL OPERATOR) PRO-B TYPE NATRIURETIC PEPTIDE 349(H) <125 PG/ML 05/28/2024 10:43 AM FUEL OPERATOR [facility] Comment: CUT POINTS ESTABLISHED BY INTERNATIONAL [...] FOR ACUTE CHF. 05/28/2024 10:1 8 AM FUEL OPERATOR us Ramos Carey MD LABORATORY Final Result Performing Organization Address City/[facility]/ZIP Co de Phone Number [facility] [address] [place] [address], [place] [phone] * TROPONIN, QUANT (05/28/2024 10:18 AM FUEL OPERATOR) TROPONIN I HIGH SENSITIVITY 11 0 - 50 ng/L 05/28/2024 10:51 AM FUEL OPERATOR [facility] Comment: HIGH DOSES OF BIOTIN, TROPONIN-SPECIFIC AUTOANTIBODIES, AND ANTIBODY THERAPY CONTAINING HAMA MAY INTERFERE WITH THIS TEST RESULT. CORRELATION TO CLINICAL HISTORY AND PRESENTATION RECOMMENDED. 05/28/2024 10:1 8 AM FUEL OPERATOR us Ramos Carey MD LABORATORY Final Result Performing Organization Address City/[facility]/ZIP Co de Phone Number [facility] [address] [place] [address], [place] [phone] * RESP SYNCYTIAL VIRUS (05/28/2024 10:15 AM FUEL OPERATOR) SPECIMEN TYPE NASOPHARYNGEAL SWAB 05/28/2024 10:15 AM FUEL OPERATOR [facility] RAPID RSV NEGATIVE NEGATIVE 05/28/2024 10:41 AM FUEL OPERATOR [facility] NASOPHARYNGEAL SWAB / Unknown 05/28/2024 10:15 AM FUEL OPERATOR us Ramos Carey MD MICROBIOLOGY - GENERAL ORDERABL ES Final Result Performing Organization Address City/[facility]/ZIP Co de Phone Number [facility] [address] [place] [address], [place] [phone] * CORONAVIRUS (COVID-19) MOLECULAR (05/28/2024 9:45 AM FUEL OPERATOR) CORONAVIRUS SARS COV 2 RNA NEGATIVE NEGATIVE 05/28/2024 10:12 AM FUEL OPERATOR [facility] Comment: NEGATIVE RESULTS DO NOT RULE [...] SARS-COV-2. SPECIMEN TYPE NASAL 05/28/2024 9:55 AM FUEL OPERATOR [facility] NASOPHARYNGEAL SWAB / Unknown 05/28/2024 9:45 AM FUEL OPERATOR us Ramos Carey MD MICROBIOLOGY - GENERAL ORDERABL ES Final Result [facility] [address] [place] [address], [place] [phone] * INFLUENZA A & B (05/28/2024 9:45 AM FUEL OPERATOR) SPECIMEN TYPE NASOPHARYNGEAL SWAB 05/28/2024 10:00 AM FUEL OPERATOR [facility] INFLUENZA A NEGATIVE NEGATIVE 05/28/2024 10:14 AM FUEL OPERATOR [facility] INFLUENZA B NEGATIVE NEGATIVE 05/28/2024 10:14 AM FUEL OPERATOR [facility] NASOPHARYNGEAL SWAB / Unknown 05/28/2024 9:45 AM FUEL OPERATOR us Ramos Carey MD MICROBIOLOGY - GENERAL ORDERABL ES Final Result [facility] [address] [place] [address], [place] [phone] from Last 3 Months Insurance [employer] Advance Directives * Full Code (Latest Code Status on File) Date Activated Date Inactivated Comments 06/20/2024 6:04 AM 06/22/2024 8:20 PM Care Teams Cotton Tier Relationship Specialty Start Date End Date Felicitas Fatima NP [address] [place] [phone] PCP - General NURSE PRACTITIONER 05/28/24
== END 2024-07-28 14:21 | disposition home or self-care (01) ==
PROVIDERS: Visit Provider Orthopaedic Surgery
DX: M79.89 Other specified soft tissue disorders (principal)
CPT/HCPCS: 93971